=== PATIENT | female | born 1995 | race Two or more races ===

== ENCOUNTER 2020-06-02 17:56 | Emergency (ER) | payer MEDICAID, SELFPAY ==
[2020-06-02 18:05] VITALS: BP 130/73; PULSE 84; RESP 16; TEMP 37; O2SAT 99; BMI 24.1
--- NOTE | 2020-06-02 18:16 | ED.URI ---
HPI - URI/Sore Throat General Chief Complaint: Upper Respiratory Symptoms Stated Complaint: cough Time Seen by Provider: 06/02/20 18:07 Source: patient Mode of arrival: ambulatory History of Present Illness HPI Narrative: 25-year-old female with a past medical history of asthma presenting to ED complaining of mild dry cough and myalgias starting today. Patient reports works at [employer], no known sick contacts or recent travel. Denies fever, chills, CP/SOB, LE edema, history of clots MD elicited complaint: cough Related Data Allergies Allergy/AdvReac Type Severity Reaction Status Date / Time ENVIRONMENTAL Allergy Intermediate RUNNY Uncoded 03/08/20 16:51 NOSE, SNEEZING Review of Systems Review of Systems: Constitutional: No Weight loss, No Fever, No Chills, +fatigue Cardiovascular: No Chest Pain, No SOB Respiratory: + Cough, No Sputum, No Wheezing Gastrointestinal: No Nausea, No Vomiting, No Diarrhea, No Constipation, No Abdominal pain Genitourinary:, No Dysuria, No Urinary Frequency, No Hematuria, No Urinary Incontinence, No Urgency, No Flank Pain Musculoskeletal: No joint pain, + Myalgias, No Joint Swelling Skin: No Skin Lesions, No rash Yes all other systems are reviewed and are negative PMFSH Past Medical History Attestation statement: The following information was validated with the patient. Medical History (Updated 06/02/20 @ 18:17 by ELI Chavez) Asthma Physical Exam Vital Signs: Vital Signs: Last Vital Signs Temp 98.6 F 06/02/20 18:05 Pulse 84 06/02/20 18:05 Resp 16 06/02/20 18:05 BP 130/73 06/02/20 18:05 Pulse Ox 99 06/02/20 18:05 Body Mass Index 24.1 Const: General: cooperative and healthy appearing Orientation/consciousness: patient oriented x3 Limitations: no limitations HENMT: Head: Yes normal to inspection Ears: hearing grossly normal bilaterally General nose exam: Normal external nose present Face and sinus: Yes normal facial exam Eyes: General: appearance normal, both eyes and all related structures EOM: EOMs intact bilaterally Neck: Neck: Yes normal visual inspection and Yes no meningeal signs Resp: Effort & Inspection: normal respiratory effort Auscultation: clear to auscultation bilaterally, no rales, no rhonchi and no wheezes Cardio: Rate: regular rate Heart sounds: S1 normal heart sound present and S2 normal heart sound present GI: Inspection: Yes normal to inspection Skin: Rashes: no rashes Wounds: no wounds Neuro: General: patient oriented x3 and no meningeal signs Gait exam (Neuro): Normal gait present Extrem: General: Yes normal to inspection MDM - URI/Sore Throat MDM Narrative Medical decision making narrative: On exam VSS, NAD/well-appearing, lungs CTA. Nontoxic appearing. Concern for viral syndrome/COVID-19. Low concern for pneumonia Plan: COVID-19, worrisome signs and symptoms and strict return precautions discussed. Discharge Plan Discharge Clinical Impression: Upper respiratory infection Qualifiers: URI type: unspecified URI Qualified Code(s): J06.9 - Acute upper respiratory infection, unspecified Patient Disposition: Home, Self-Care Instructions: Viral Syndrome (ED) Additional Instructions: Based on your symptoms and history we have sent a COVID-19. Although your RESULT IS PENDING at this time. RESULTS should return within 72 hours. At this time you will be contacted with either NEGATIVE OR POSITIVE results. -Please wait until we contact you for your results. At this time you will be okay for discharge. Please plan for self quarantine for up to 14 days. Do not expose yourself to others. You may not go to work. If testing does come back negative you may return to activities as long as you are no longer having any symptoms for at least 3 days. Please continue to follow cold instructions and wash your hands frequently. You may take Tylenol as directed on the bottle for pain or fever. CDC Guidelines for home isolation: - Stay away from others - WEAR A MASK if you are sick AND STAY HOME - Cover your mouth and nose with a tissue when you cough or sneeze. Dispose of tissues in a lined trash can and wash your hands immediately with soap and water for at least 20 seconds. If soap and water are not available, clean hands with alcohol-based hand notch machine operator that contains at least 60% alcohol. - Clean your hands often with soap and water for at least 20 seconds - Avoid touching your eyes, nose and mouth with unwashed hands - Do not share dishes, drinking glasses, cups, eating utensils, towels, or bedding with other people in your home. After using these items, wash them thoroughly with soap and water or put in the fixer boarding room. - Clean high-touch surfaces in your isolation area ( sick room and bathroom) every day; let a caregiver clean and disinfect high-touch surfaces in other areas of the home. Clean the area or item with soap and water or another detergent if it is dirty. Then, use a household disinfectant. - Limit contact with pets and animals: If you must care for a pet, wash your hands before and after interacting with them) Referrals: [facility] [Primary Care Provider] - 2 days Stand Alone Forms: Work/School Release
== END 2020-06-02 19:32 | disposition home or self-care (01) ==
PROVIDERS: Physician Assistant; Emergency Provider Internal Medicine
DX: U07.1 COVID-19 (principal); J06.9 Acute upper respiratory infection, unspecified; J45.909 Unspecified asthma, uncomplicated
CPT/HCPCS: 99283; U0003

== ENCOUNTER 2021-01-18 08:08 | Outpatient (REF) | payer MEDICAID, SELFPAY ==
--- NOTE | ~2021-01-18 | US_ITS ---
EXAMINATION: US DIAGNOSTIC ULTRASOUND BREAST, LEFT CLINICAL INFORMATION: 25-year-old with new palpable mass upper outer left breast noted for one month. COMPARISON: None. TECHNIQUE: Ultrasound left breast is targeted to the area of clinical concern upper outer quadrant. Grayscale imaging and color Doppler are performed without and with harmonics. Patient is able to point to the area of palpable concern at time of imaging. FINDINGS: There is a solid macrolobulated hypoechoic mass 2:00 position 7 cm from nipple corresponding to the palpable concern and measuring 1.7 x 1.1 x 1.6 cm. There is scattered peripheral and internal color flow. There are no other findings in the targeted area. Results are discussed with the patient at time of visit. Patient notes she performs routine breast exam and the finding is new. The ultrasound appearance is suggestive of fibroadenoma. Tissue sampling is recommended for confirmation. US/US breast LT limited IMPRESSION: Solid mass left breast 2:00 position measuring 1.7 cm, likely fibroadenoma. ASSESSMENT: BI-RADS 4: Suspicious (subcategory 4A: Low suspicion for malignancy) RECOMMENDATION: Ultrasound-guided core biopsy left breast mass.
== END 2021-01-18 08:09 | disposition home or self-care (01) ==
LOC: HO.MAMMO 08:08
PROVIDERS: Visit Provider Registered Nurse Community Health
DX: N63.21 Unspecified lump in the left breast, upper outer quadrant (principal)
CPT/HCPCS: 76642

== ENCOUNTER 2021-01-30 09:35 | Outpatient (REF) | payer MEDICAID, SELFPAY ==
--- NOTE | ~2021-01-30 | US_ITS ---
EXAMINATION: ULTRASOUND GUIDED CORE BIOPSY BREAST, LEFT CLINICAL INFORMATION: 25-year-old with new palpable mass upper outer left breast. Ultrasound shows macrolobulated mass 1.7 cm, likely fibroadenoma. COMPARISON: Targeted left breast ultrasound 01/18/2021. FINDINGS: Proper informed consent is obtained from the patient after discussion of the procedure, potential risks and complications, and alternatives. Patient was given an opportunity for questions. The patient appeared to understand. The patient consented to the procedure and signed the consent form. GUIDANCE: Ultrasound-guided; aseptic technique. LESION: Solid mass 2:00 position 7 cm from nipple measuring 1.7 x 1.1 x 1.6 cm, probable fibroadenoma. APPROACH: Oblique caudal cranial. ANESTHESIA: 10 mL 1% lidocaine. DERMATOTOMY: Single skin naren dermatotomy performed. NEEDLE: 14-gauge Achieve core biopsy device with 13.5-gauge co-axial guide needle. CORES: 4. CLIP: HydroMARK; shape: butterfly. The clip deployment is clearly visible during real-time ultrasound. The patient tolerated the procedure well. No immediate complications. Home instructions reviewed with the patient. Final pathology results are pending. US/US breast ndl core biopsy LT IMPRESSION: 1. Status post ultrasound-guided core biopsy left breast. 2. Clip placed: HydroMARK; shape: butterfly. 3. Pathology pending. An addendum report will be issued.
== END 2021-01-30 09:36 | disposition home or self-care (01) ==
LOC: HO.MAMMO 09:35
PROVIDERS: Visit Provider Surgery
DX: N63.21 Unspecified lump in the left breast, upper outer quadrant (principal)
CPT/HCPCS: 19083; 88305; 99202

== ENCOUNTER → 2021-02-04 09:31 | Outpatient (BNVA) | payer MEDICAID, SELFPAY | PROVIDERS: PCP Registered Nurse Community Health; Referring Provider Registered Nurse Community Health; Visit Provider Surgery | DX: N63.21 Unspecified lump in the left breast, upper outer quadrant (principal) | CPT/HCPCS: 99212 ==

== ENCOUNTER 2023-06-11 17:48 | Outpatient (REF) | payer MEDICAID, SELFPAY ==
[2023-06-11 18:38] LABS: Appearance Urine Turbid; Color Urine Yellow; Glucose Urine UA Negative (Negative); Leukocyte Esterase Urine Large (3+) (Negative); Nitrite Urine Negative (Negative); PH 7.5 (5.0-9.0); Specific Gravity - Urine 1.015 (1.005-1.025); UMIC TRIGGER UACC YES; Urine Blood Negative (Negative); Urine Ketones Negative (Negative); Urine Protein Negative (Neg-Trace)
[2023-06-11 20:48] LABS: Bacteria Urine 4+ (None Seen); UACC Culture Trigger YES; WBC Urine >50 /HPF (0-5)
== END 2023-06-11 17:49 | disposition home or self-care (01) ==
LOC: HO.HHCLNP 17:48
PROVIDERS: Visit Provider Student in an Organized Health Care Education/Training Program
DX: R10.9 Unspecified abdominal pain (principal)
CPT/HCPCS: 81001; 87086

== ENCOUNTER 2023-06-12 11:47 | Outpatient (REF) | payer MEDICAID, SELFPAY ==
--- NOTE | ~2023-06-12 | XR_ITS ---
EXAMINATION: XR ABDOMEN COMPLETE CLINICAL INDICATION: Abdominal pain evaluate for calcium/kidney stones COMPARISON: Abdominal ultrasound February 2015 TECHNIQUE: 2 views of the abdomen. FINDINGS: The bowel gas pattern is normal with no evidence of ileus or obstruction. No unusual soft tissue calcifications are noted. There is a mild convex left curvature of the thoracolumbar junction perhaps positional. Radiopaque intrauterine device noted. Bone and soft tissues otherwise unremarkable XR/XR abdomen min 2V IMPRESSION: 1. No acute abnormality. No findings to suggest urinary tract calculi 2. Radiopaque intrauterine device noted.
== END 2023-06-12 11:48 | disposition home or self-care (01) ==
LOC: HO.HHCX 11:47
PROVIDERS: Visit Provider Student in an Organized Health Care Education/Training Program
DX: R10.9 Unspecified abdominal pain (principal); Z97.5 Presence of (intrauterine) contraceptive device
CPT/HCPCS: 74019

== ENCOUNTER 2023-06-16 12:45 | Outpatient (REF) | payer MEDICAID, SELFPAY ==
--- NOTE | ~2023-06-16 | US_ITS ---
EXAMINATION: US ABDOMEN COMPLETE CLINICAL INFORMATION: Abdominal pain. COMPARISON: X-ray abdomen complete 06/12/2023. Ultrasound abdomen complete 03/13/2015. TECHNIQUE: Real-time imaging of the abdominal viscera. Limited visualization due to bowel gas. FINDINGS: PANCREAS: Normal. ABDOMINAL AORTA: The proximal, mid, and distal segments are normal in caliber. INFERIOR VENA CAVA: Visualized portions are normal. LIVER: Increased hepatic parenchymal heterogeneity and echogenicity which could be associated with hepatocellular disease/hepatic steatosis and substantially limits visualization. GALLBLADDER: Multiple gallstones. No gallbladder wall thickening. COMMON BILE DUCT: Normal in caliber measuring 0.2 cm in diameter. RIGHT KIDNEY: Borderline dilated renal calyces. No renal calculi. Limited visualization. The kidney measures 10.8 cm in maximum dimension. LEFT KIDNEY: Echogenic renal pyramids. Borderline dilated renal calyces. No renal calculi. Limited visualization. The kidney measures 10.9 cm in maximum dimension. SPLEEN: Normal. The spleen measures 10.8 cm in maximum dimension. FREE FLUID: None. US/US abdomen complete IMPRESSION: 1. Increased hepatic parenchymal heterogeneity and echogenicity which could be associated with hepatocellular disease/hepatic steatosis and substantially limits visualization. 2. Cholelithiasis. 3. Borderline dilated bilateral renal calyces. Echogenic left renal pyramids. 4. Limited visualization due to bowel gas and body habitus. CT scan could be considered for better visualization.
== END 2023-06-16 12:46 | disposition home or self-care (01) ==
LOC: HO.US 12:45
PROVIDERS: Visit Provider Student in an Organized Health Care Education/Training Program
DX: R10.9 Unspecified abdominal pain (principal)
CPT/HCPCS: 76700

== ENCOUNTER 2023-07-20 12:27 | Outpatient (REF) | payer MEDICAID, SELFPAY ==
[2023-07-20 13:10] LABS: MANUAL DIFF FLAG NO
[2023-07-20 13:18] LABS: Basophils Percent Auto 0.3 % (0-2); Eosinophils Absolute Auto 0.3 X10*3/uL (0.0-0.4); Eosinophils Percent Auto 4.4 % (0-4); Hematocrit 39.6 % (37.0-47.0); Hemoglobin 13.1 g/dl (12.0-16.0); Imm Gran Abs Auto 0.01 X10*3/uL (0.00-0.03); Imm Gran Pct Auto 0.2 % (0.0-0.4); Lymphocytes Absolute Auto 1.7 X10*3/uL (1.2-4.9); Mean Corpuscular HGB Conc 33.1 g/dl (31.0-35.0); Mean Corpuscular Hemoglobin 30.9 pg (27.0-33.0); Mean Corpuscular Volume 93.4 fL (80.0-98.0); Mean Platelet Volume 9.9 fL (9.4-12.3); Monocytes Absolute Auto 0.4 X10*3/uL (0.1-1.2); Monocytes Percent Auto 6.8 % (2-11); Neutrophils Absolute Auto 3.5 x10*3/uL (2.0-8.3); Neutrophils Percent Auto 59.3 % (45-73); Platelet Count 292 X10*3/uL (160-400); Red Blood Count 4.24 X10*6/uL (4.20-5.50); Red Cell Distribution Width 12.6 % (11.0-16.0); White Blood Count 5.9 X10*3/uL (4.8-10.8)
[2023-07-20 13:41] LABS: Estimated Average Glucose 97 mg/dL
[2023-07-20 13:55] LABS: Anion Gap 14 (12-20); Blood Urea Nitrogen 11 mg/dL (9-16); Calcium 9.5 mg/dL (8.4-10.2); Carbon Dioxide 26 mmol/L (22-29); Chloride 105 mmol/L (96-108); Estimated Glomerular Filt Rate > 60; Glucose Random 82 mg/dL (60-115); Sodium 141 mmol/L (135-145)
[2023-07-20 15:02] LABS: CT PCR NOT DETECTED (Not Detect.); NG PCR NOT DETECTED (Not Detect.)
[2023-07-21 05:50] LABS: HIV AB/AG Nonreactive (Nonreactive); HIV Num 1 0.17 S/CO (0.00-0.99); ~HepC Num1 0.09 S/CO (0.00-0.79); ~Hepatitis C Antibody Nonreactive (Nonreactive)
[2023-07-21 11:19] LABS: RPR Rapid Plasma Reagin NON-REACTIVE (NON-REACTIVE)
== END 2023-07-20 12:28 | disposition home or self-care (01) ==
LOC: HO.HHCL 12:27
PROVIDERS: Visit Provider Internal Medicine
DX: Z00.00 Encounter for general adult medical examination without abnormal findings (principal)
CPT/HCPCS: 0353U; 36415; 80048; 83036; 85025; 86592; 86803; 87389

== ENCOUNTER 2023-07-27 10:08 | Outpatient (REF) | payer MEDICAID, SELFPAY ==
--- NOTE | ~2023-07-27 | CT_ITS ---
EXAMINATION: CT ABDOMEN AND PELVIS WITHOUT CONTRAST CLINICAL INFORMATION: Lower abdominal pain; question renal calculi. COMPARISON: Abdominal ultrasound dated 06/16/2023. TECHNIQUE: Multidetector volumetric imaging was performed from the superior aspect of the liver through the pubic symphysis. Sagittal and coronal reformatted images were obtained on the technologist's workstation. This CT examination was performed using dose optimization techniques as appropriate, variously including the following: *Automated exposure control *Adjustment of mA and/or kV according to patient size (this includes techniques or standardized protocols for targeted exams where dose is matched to indication/reason for exam; i.e. extremities or head) *Use of iterative reconstruction technique DLP: 442 mGy-cm FINDINGS: LUNG BASES: The visualized lung bases are unremarkable. LIVER, GALLBLADDER, AND BILIARY TREE: The liver is normal in size, shape, and attenuation. No focal hepatic lesion or biliary ductal dilatation is present. There are multiple gallstones, without gallbladder wall thickening or obvious pericholecystic inflammatory changes. PANCREAS: Unremarkable. SPLEEN: Unremarkable. ADRENAL GLANDS: Unremarkable. KIDNEYS AND URETERS: The kidneys are normal in size, shape, and attenuation. At the lower pole of the left kidney (4:289 and 301), there are 4 mm and 1 mm nonobstructing calculi. No perinephric stranding. BLADDER: Unremarkable. GASTROINTESTINAL TRACT: There is a curvilinear radiolucency noted towards the lesser curvature of the stomach, which is likely artifactual and related to a gas and motion artifact. The small and large bowel are unremarkable. No obstruction, free intraperitoneal air or abscess is seen. There is no focal bowel wall thickening. No significant diverticulosis or diverticulitis is seen. The vermiform appendix is unremarkable. ABDOMINAL WALL: There is a tiny fat-containing umbilical hernia. LYMPH NODES: Normal. VASCULAR: Unremarkable. PELVIC VISCERA: The uterus and adnexa are unremarkable. An intrauterine device is noted. OSSEOUS STRUCTURES: There is mild lower thoracic spondylosis. No acute or aggressive osseous finding is seen. CT/CT abdomen pelvis wo IV con IMPRESSION: 1. There are 4 mm and 1 mm nonobstructing left renal lower pole calculi. No further urinary calculus is seen, and there is no bilateral obstructive uropathy. 2. There is cholelithiasis. 3. There is no bowel obstruction, free intraperitoneal air or abscess. No appendicitis or diverticulitis is seen. 4. There is no abdominopelvic mass, free fluid or lymphadenopathy. 5. There is mild lower thoracic spondylosis. No acute or aggressive osseous finding is noted. Fleischner guidelines were followed.
== END 2023-07-27 10:09 | disposition home or self-care (01) ==
LOC: HO.CT 10:08
PROVIDERS: PCP Registered Nurse Community Health; Visit Provider Student in an Organized Health Care Education/Training Program
DX: R10.9 Unspecified abdominal pain (principal)
CPT/HCPCS: 74176

== ENCOUNTER 2023-08-17 11:46 | Outpatient (AMB) | payer MEDICAID, SELFPAY ==
--- NOTE | 2023-08-17 11:49 | A.OFFVIS_ITS ---
Intake Intake Visit Reasons: gallstones Intake Note: This patient presents for an assessment for gallstones. Patient c/o; reports lower back pain, reports no nausea or vomiting, reports no problems with bowel movements. Clinical Research Management Associate Required: No Accompanied by: Self / Same As Patient Allergies ENVIRONMENTAL Allergy (Intermediate, Uncoded 08/17/23 11:50) RUNNY NOSE, SNEEZING Medication List - Last Reconciled 08/17/23 by Tim Medeiros MD No Known Home Meds HPI gallstones HPI Details [age] year old female referred for gallstones. She actually complaints of chronic pelvic pain/lower abdominal pain. She says that she has had this for several months. She also says that she has similar pain whenever she has her periods . She had undergone an ultrasound last May [address] scan 3 weeks ago showing gallstones without cholecystitis. She was therefore referred to me. She denies any pain or tenderness on the right upper quadrant. She has good oral intake. She says she has an IUD which she has had for over 4 years now. She says that she has not been seen by her branch store manager several years for this. [facility] Medical History (Updated 08/17/23 @ 11:57 by Tim Medeiros MD) Gallstones Left breast mass Asthma Surgical History History of ankle surgery Family History Paternal Uncle Cancer of unknown origin Female Reproductive History Menstrual Age of Menarche: 13 Review of Systems Const Denies chills and Denies fever(s) Card Denies chest pain, Denies dyspnea and Denies dyspnea on exertion Resp Denies cough, Denies dyspnea and Denies dyspnea on exertion GI Denies hematochezia and Denies change in bowel habits Denies hematuria Musc Denies back pain and Denies limited range of motion Neuro Denies focal weakness and Denies convulsions Psych Denies depression and Denies mood swings Physical Exam Const General: comfortable and no acute distress Orientation/consciousness: patient oriented x3 Neck Neck: Yes no lymphadenopathy Resp Auscultation: clear to auscultation bilaterally Cardio Rhythm: regular rhythm GI Palpation (GI): Soft to palpation, nontender and no guarding Neuro General: patient oriented x3 Assessment & Plan Assessment & Plan (1) Gallstones: Code(s): K80.20 - Calculus of gallbladder without cholecystitis without obstruction Plan: She has had chronic lower abdominal pain/pelvic pain. She had an undergone ultrasound and CAT scan showing gallstones. However her pain does not appear to be secondary to the gallbladder. She denies any pain on the right upper quadrant. She denies any GI complaints. She does state that her pain seems to be worse with her periods I therefore told her that it may be best to see her branch store manager with regards to her IUD and her lower abdominal pain. I did explain to her that if her gallstones become symptomatic, she should come back to the office to be re- evaluated for possible cystectomy She understands the plan and is comfortable with this. Coding Level of Care Code New Pt Level 3 (05827) Diagnoses Gallstones K80.20
== END 2023-08-17 12:19 | disposition home or self-care (01) ==
PROVIDERS: PCP Student in an Organized Health Care Education/Training Program; Visit Provider Surgery
DX: K80.20 Calculus of gallbladder without cholecystitis without obstruction (principal)
CPT/HCPCS: 99213

== ENCOUNTER → 2023-08-17 11:46 | Outpatient (BNVA) | payer MEDICAID, SELFPAY | PROVIDERS: PCP Student in an Organized Health Care Education/Training Program; Visit Provider Surgery | DX: K80.20 Calculus of gallbladder without cholecystitis without obstruction (principal) | CPT/HCPCS: 99212 ==

== ENCOUNTER 2023-09-25 16:35 | Outpatient (REF) | payer MEDICAID, SELFPAY ==
[2023-09-30 22:33] LABS: C. trachomatis RNA TMA NOT DETECTED (NOT DETECTED); N. gonorrhoeae RNA TMA NOT DETECTED (NOT DETECTED)
[2023-10-01 00:04] LABS: Trichomonas (NAAT) NOT DETECTED (NOT DETECTED)
== END 2023-09-25 16:36 | disposition home or self-care (01) ==
LOC: HO.HHCLNP 16:35
PROVIDERS: Visit Provider Internal Medicine
DX: Z12.4 Encounter for screening for malignant neoplasm of cervix (principal); Z11.3 Encounter for screening for infections with a predominantly sexual mode of transmission
CPT/HCPCS: 36415; 87491; 87591; 87661; 88142

== ENCOUNTER 2023-11-19 09:18 | Outpatient (AMB) | payer MEDICAID, SELFPAY ==
--- NOTE | 2023-11-19 09:23 | MHC.OFFVIS ---
Vital Signs 11/19/23 09:29 Height 5 ft 5 in Weight 151 lb BMI 25.1 BP 110/66 Intake Visit Reasons: New patient IUD check up Enamel Burner Required: No Information Interpreted: non-clinical & clinical Security Sales Manager: Security Sales Manager Present (Sandi PURCELL) Accompanied by: Self / Same As Patient Allergies ENVIRONMENTAL Allergy (Intermediate, Uncoded 11/19/23 09:30) RUNNY NOSE, SNEEZING Is last menstrual period known: No (mirena) HPI Comments Details: The patient is presenting with bilateral lower pelvic pain started a months ago. It's intermittent in nature lasting few seconds and occurs 3x/day. it is associated with heavy irregular menstrual cycles associated with passage of blood clots and pelvic cramping, no urinary or GI symptoms, no vaginal discharge, no fever or chills. The patient has Mirena IUD inserted since December of 2018 [facility] Medical History Gallstones Left breast mass Asthma Surgical History History of ankle surgery Family History Paternal Uncle Cancer of unknown origin Father Diabetes Mother Heart disease Social History Household Members: Children Housing: Apartment Alcohol intake: never Patient Tobacco Use Status: Never used Tobacco Current occupational status: unemployed Sexually active: Yes Sexual orientation: Straight/Heterosexual Gender identity: Female Female Reproductive History Menstrual Age of Menarche: 13 Total pregnancies: 2 Full term: 2 Number of Living Children: 2 Review of Systems Const All systems reviewed & are unremarkable except as noted in HPI and below Physical Exam Vital Signs: Last Vital Signs BP 110/66 11/19/23 09:29 BMI result Body Mass Index 25.1 General: Yes no CVA tenderness External Female Exam: normal external appearance and normal appearance of the urethra Speculum Exam - Vagina: normal appearance of the vagina, normal palpation, no lesions and no masses Speculum Exam - Cervix: normal appearance of the cervix, normal palpation, no lesions, no masses, nontender and Other cervical findings present (IUD string in place) Bimanual exam- vagina & uterus: normal bimanual exam, normal palpation, uterine size normal, normal palpation, uterine shape normal, No Cervical tenderness present and non-tender Bimanual Exam- Adnexa, other: normal adnexae Back/Spine/Pelvis Back: no CVA tenderness Results AMB Test Urine AMB Test Urine Negative Last Edit by Sandi Pan CMA on 11/19/23 09:37 Assessment & Plan Assessment & Plan (1) Abnormal uterine bleeding (AUB): Comment: On Mirena IUD Code(s): N93.9 - Abnormal uterine and vaginal bleeding, unspecified Category: Medical Plan: Urine test done in the office was negative. Pap smear done, GC and chlamydia taken CBC, TSH, prolactin, HCG, and pelvic ultrasound ordered. Discussed with the patient the different causes of abnormal bleeding including thyroid disorders, uterine and ovarian pathology and other potential causes. Discussed with the patient the work up including CBC (to r/o anemia), TSH, prolactin, pelvic Ultrasound. All questions answered and the patient verbalized understanding. Instructed the patient to schedule a follow-up appointment in 2 weeks. (2) Pelvic pain: Code(s): R10.2 - Pelvic and perineal pain Category: Medical Plan: Urine test done in the office while negative. GC and chlamydia taken and pelvic ultrasound ordered. Discussed with the patient the differential diagnosis of pelvic pain including but not limited to adnexal, uterine masses, pelvic infections (PID), GI the (Irritable bowel syndrome, diverticulitis, others), musculoskeletal, myofascial pain abdominal wall , adhesions, endometriosis, psychological and others causes. Will check results and treat accordingly. All questions answered, the patient verbalized understanding. Instructed the patient to schedule follow-up appointment in 2 weeks (3) Microscopic hematuria: Code(s): R31.29 - Other microscopic hematuria Category: Medical Plan: Urine dip showed microscopic hematuria, urine culture sent. Will repeat urine dip in 2 weeks. Discussed with the patient the possible causes of microscopic hematuria including but not limited to: interstitial cystitis, polyps, stones, masses, urethral inflammatory processes and others. If Urine Culture is negative and repeat urine dip in 2 weeks shows persistent microscopic hematuria, will proceed with CT abdomen/pelvis and urology referral. Instructions given the patient to schedule a 2 week urine dip follow-up appointment. All questions answered and the patient verbalized understanding. Orders: Orders Complete Blood Count no Diff Today N93.9 - Abnormal uterine and vaginal bleeding, unspecified TSH reflex Free T4 Today N93.9 - Abnormal uterine and vaginal bleeding, unspecified Prolactin Today N93.9 - Abnormal uterine and vaginal bleeding, unspecified HCG Quantitative Today N93.9 - Abnormal uterine and vaginal bleeding, unspecified US pelvic and transvaginal Today N93.9 - Abnormal uterine and vaginal bleeding, unspecified AMB HCG Urine Test Today Z32.02 - Encounter for test, result negative Urine Culture Today R10.2 - Pelvic and perineal pain Coding Level of Care Code New Pt Level 3 (74405) Diagnoses Abnormal uterine bleeding (AUB) N93.9 Pelvic pain R10.2 Microscopic hematuria R31.29
[2023-11-19 09:29] VITALS: BP 110/66; BMI 25.1
== END 2023-11-19 09:58 | disposition home or self-care (01) ==
PROVIDERS: PCP Student in an Organized Health Care Education/Training Program; Referring Provider Student in an Organized Health Care Education/Training Program; Visit Provider Obstetrics & Gynecology
DX: N93.9 Abnormal uterine and vaginal bleeding, unspecified (principal); R10.2 Pelvic and perineal pain; R31.29 Other microscopic hematuria; Z32.02 Encounter for pregnancy test, result negative
CPT/HCPCS: 99203

== ENCOUNTER 2023-11-19 09:18 | Outpatient (REF) | payer MEDICAID, SELFPAY ==
[2023-11-19 15:59] LABS: CT PCR NOT DETECTED (Not Detect.); NG PCR NOT DETECTED (Not Detect.)
== END 2023-11-19 09:19 | disposition home or self-care (01) ==
LOC: HO.LNP 09:18
PROVIDERS: PCP Student in an Organized Health Care Education/Training Program; Visit Provider Obstetrics & Gynecology
DX: R10.2 Pelvic and perineal pain (principal); N93.9 Abnormal uterine and vaginal bleeding, unspecified; R31.29 Other microscopic hematuria
CPT/HCPCS: 0353U; 81025; 87086; 99202

== ENCOUNTER 2023-11-26 10:58 | Outpatient (REF) | payer MEDICAID, SELFPAY ==
--- NOTE | ~2023-11-26 | US_ITS ---
EXAMINATION: US PELVIS CLINICAL INFORMATION: Abnormal uterine and vaginal bleeding. COMPARISON: CT abdomen and pelvis 07/27/2023. TECHNIQUE: Ultrasound of the pelvis is performed using both transabdominal and transvaginal transducers along with Doppler. Transvaginal imaging is performed due to inadequate visualization transabdominally. FINDINGS: Uterus: The uterus is anteverted and anteflexed measuring 7.6 x 3.5 x 4.8 cm. The double wall endometrial thickness is 2 mm. An IUD is present in the endometrial canal which appears malrotated and positioned low in the endometrial canal, similar to appearances on the CT from 07/27/2023. The uterus is smooth in contour and has normal myometrial echogenicity. No visible fibroid. Adnexa: Both ovaries are visualized. There is normal color flow to the adnexa. There is no ovarian torsion. There is no pelvic ascites or fluid collection. Right ovary measures 2.9 x 2.5 x 2.1 cm for a volume of 8.0 mL. Left ovary measures 2.7 x 2.1 x 1.4 cm for a volume of 4.2 mL. US/US pelvic and transvaginal IMPRESSION: Malpositioned IUD.
== END 2023-11-26 10:59 | disposition home or self-care (01) ==
LOC: HO.US 10:58
PROVIDERS: PCP Student in an Organized Health Care Education/Training Program; Visit Provider Obstetrics & Gynecology
DX: N93.9 Abnormal uterine and vaginal bleeding, unspecified (principal)
CPT/HCPCS: 76830; 76856

== ENCOUNTER 2023-12-23 12:35 | Outpatient (AMB) | payer MEDICAID, SELFPAY ==
[2023-12-23 12:42] VITALS: BP 92/60; BMI 25.1
--- NOTE | 2023-12-23 12:42 | MHC.OFFVIS ---
Vital Signs 12/23/23 12:42 Height 5 ft 5 in Weight 151 lb BMI 25.1 BP 92/60 Intake Visit Reasons: US follow up/urine dip Allergies ENVIRONMENTAL Allergy (Intermediate, Uncoded 11/19/23 09:30) RUNNY NOSE, SNEEZING HPI Comments Details: Presenting for follow-up regarding AUB, pelvic pain and microscopic hematuria. 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 The following workup was done H&H 13.1/39.6 GC/CT negative Pap smear negative TSH, prolactin, hCG not done yet Pelvic ultrasound showed the following: Uterus: The uterus is anteverted and anteflexed measuring 7.6 x 3.5 x 4.8 cm. The double wall endometrial thickness is 2 mm. An IUD is present in the endometrial canal which appears malrotated and positioned low in the endometrial canal, similar to appearances on the CT from 07/27/2023. The uterus is smooth in contour and has normal myometrial echogenicity. No visible fibroid. Adnexa: Both ovaries are visualized. There is normal color flow to the adnexa. There is no ovarian torsion. There is no pelvic ascites or fluid collection. Right ovary measures 2.9 x 2.5 x 2.1 cm for a volume of 8.0 mL. Left ovary measures 2.7 x 2.1 x 1.4 cm for a volume of 4.2 mL. COUNTS INCLUDE 234 BEDS AT THE [facility] Medical History Gallstones Left breast mass Asthma Surgical History History of ankle surgery Family History Paternal Uncle Cancer of unknown origin Father Diabetes Mother Heart disease Social History Household Members: Children Housing: Apartment Alcohol intake: never Patient Tobacco Use Status: Never used Tobacco Current occupational status: unemployed Sexual orientation: Straight/Heterosexual Gender identity: Female Female Reproductive History Menstrual Age of Menarche: 13 Review of Systems Const All systems reviewed & are unremarkable except as noted in HPI and below Physical Exam Vital Signs: Last Vital Signs BP 92/60 07/03/24 12:42 BMI result Body Mass Index 25.1 Chest Breast/axilla inspection: inspection of breasts abnormal (Right breast wnl, left breast 2 cm lump 6 cm from the nipple @ 2 o'clock ) General: Yes no CVA tenderness External Female Exam: normal external appearance and normal appearance of the urethra Speculum Exam - Vagina: normal appearance of the vagina, normal palpation, no lesions and no masses Speculum Exam - Cervix: normal appearance of the cervix, normal palpation, no lesions, no masses, nontender and Other cervical findings present (IUD string in place, IUD taken out, see procedure note) Bimanual exam- vagina & uterus: normal bimanual exam, normal palpation, uterine size normal, normal palpation, uterine shape normal, No Cervical tenderness present and non-tender Bimanual Exam- Adnexa, other: normal adnexae Back/Spine/Pelvis Back: no CVA tenderness Office Procedures IUD Insert/Removal Details Details: Counseling/Consent: After discussing with the patient the risks of the procedure including bleeding, infection, scar tissue formation, , possible injury to blood vessels or nerves, chronic arm pain, blood transfusion, and irregular unpredictable bleeding Alternative options were discussed with the patient including but not limited: Do nothing. The patient signed the consent and agreed with the plan; all questions answered. Urine test was done in the office and was negative Preop dx: Requesting IUD removal Op: IUD removal Post op dx: same EBL= 10 cc Procedure: The patient was put in the dorsal lithotomy position a speculum was inserted in the vagina the IUD thread identified. Using a Blaire clamp the thread was grasped and the IUD pulled out with no complications. The patient tolerated the procedure well and was advised to use a different method for contraception. Discharge instructions: Instructions were given to the pt to use a different method of control, to call if temp>100.4, abdominal pain heavy vaginal bleeding, n/v occur. The patient verbalized understanding and all questions answered. This note was generated with a voice recognition program. Some errors may have been overlooked during the review of this note. Sometimes these errors may affect the content or meaning of a given sentence. [id number] Removal Procedure code (CPT) selection complete Results AMB Urinalysis, Automated UA Leukoctes 0.5 Akash/uL Last Edit by Dalia Rebolledo [facility] on 12/23/23 12:47 UA Nitrite Negative Last Edit by Dalia Rebolledo [facility] on 12/23/23 12:47 UA Urobilinogen 0 mg/dL Last Edit by Dalia Rebolledo [facility] on 12/23/23 12:47 UA Protein 0 mg/dL Last Edit by Dalia Rebolledo [facility] on 12/23/23 12:47 UA pH 6.0 Last Edit by Dalia Rebolledo [facility] on 12/23/23 12:47 UA Blood 3 Ihsan/uL Last Edit by Dalia Rebolledo [facility] on 12/23/23 12:47 UA Specific Rittman 1.015 Last Edit by Dalia Rebolledo [facility] on 12/23/23 12:47 UA Ketone Negative Last Edit by Dalia Rebolledo [facility] on 12/23/23 12:47 UA Bilirubin 0 mg/dL Last Edit by Dalia Rebolledo [facility] on 12/23/23 12:47 UA Glucose 0 mg/dL Last Edit by Dalia Rebolledo [facility] on 12/23/23 12:47 AMB Test Urine AMB Test Urine Negative Last Edit by Dalia Rebolledo [facility] on 12/23/23 13:11 Results Reviewed Results Reviewed: Laboratory Last Values Urine pH (Auto) 6.0 12/23/23 12:46 Specific Rittman (Auto) 1.015 12/23/23 12:46 Urine Protein (Auto) 0 mg/dL 12/23/23 12:46 Glucose (UA)(Auto) 0 mg/dL 12/23/23 12:46 Urine Ketones (Auto) Negative 12/23/23 12:46 Urine Blood (Auto) 3 Ihsan/uL 12/23/23 12:46 Urine Nitrite (Auto) Negative 12/23/23 12:46 Urine Bilirubin (Auto) 0 mg/dL 12/23/23 12:46 Urine Urobilinogen (Auto) 0 mg/dL 12/23/23 12:46 Leukocyte Esterase (Auto) 0.5 Akash/uL 12/23/23 12:46 Assessment & Plan Assessment & Plan (1) Malpositioned IUD: Code(s): T83.32XA - Displacement of intrauterine contraceptive device, initial encounter Category: Medical Plan: Discussed with the patient the finding on ultrasound, malpositioned IUD, recommended IUD removal. IUD removed, see procedure note (2) Microscopic hematuria: Code(s): R31.29 - Other microscopic hematuria Category: Medical Plan: Discussed with the patient the possible causes of microscopic hematuria including but not limited to: interstitial cystitis, polyps, stones, masses, urethral inflammatory processes and others. Urine dip repeated showed 3+ blood, since urine culture was negative will proceed with CT scan of abdomen and pelvis and urology referral All questions answered and the patient verbalized understanding. (3) Abnormal uterine bleeding (AUB): Code(s): N93.9 - Abnormal uterine and vaginal bleeding, unspecified Category: Medical Plan: Mirena IUD removed. Instructions given the patient to have her blood work done and schedule a 2 week follow-up appointment, once breast tenderness /lump is cleared by general surgeon and breast ultrasound, and malignancy has been ruled out will discuss different options of treatment (4) Left breast mass: Comment: 2 cm Left breast lump 2 o'clock 6 cm from the nipple Code(s): N63.20 - Unspecified lump in the left breast, unspecified quadrant Category: Medical Plan: Discussed with the patient the finding on Breast exam (breast lump) .The differential diagnosis includes but not limited to lump/cyst/pre cancer/cancer or dense breast tissue. The work up includes breast US and referred the patient for surgical breast consult. (5) Family planning: Code(s): Z30.09 - Encounter for other general counseling and advice on contraception Category: Social Hx Plan: Discussed with the patient the different options of control including control pills/Nuvaring, Depo Medroxy Progesterone Acetate, IUD ( levonorgestrel, Copper), sterilization. All the pros, cons, risks and benefits of each were discussed with the patient. The patient decided to go ahead with [facility] so a more detailed discussion re: control pills including mechanism of action, benefits (regular menses, less dysmenorrhea, less risk of ovarian cancer, ...), risks ( DVT, PE, Strokes, CA, increased breast ca, others). Instructions were given to use a back- up method for contraception till breast lump workup is cleared and malignancy has been ruled out then will prescribe control pills. Instructions given the patient to schedule a 2 week follow-up appointment, meanwhile use a backup method for control in order to prevent . Orders: Orders AMB Urinalysis Automated Today R31.29 - Other microscopic hematuria CT abdomen pelvis wo/w IV con Today R31.29 - Other microscopic hematuria AMB HCG Urine Test Today Z32.02 - Encounter for test, result negative Referrals Urology Referral R31.29 - Other microscopic hematuria Coding Level of Care Code Est Pt Level 3 (73869) Diagnoses Malpositioned IUD T83.32XA Microscopic hematuria R31.29 Abnormal uterine bleeding (AUB) N93.9 Left breast mass N63.20 Family planning Z30.09 CPT Codes Details - CPT: 62063-OJF Removal ([id number])
== END 2023-12-23 13:42 | disposition home or self-care (01) ==
PROVIDERS: PCP Student in an Organized Health Care Education/Training Program; Visit Provider Obstetrics & Gynecology
DX: Z30.09 Encounter for other general counseling and advice on contraception (principal); R31.29 Other microscopic hematuria; N93.9 Abnormal uterine and vaginal bleeding, unspecified; T83.32XA Displacement of intrauterine contraceptive device, initial encounter; Z30.432 Encounter for removal of intrauterine contraceptive device; N63.20 Unspecified lump in the left breast, unspecified quadrant; Z32.02 Encounter for pregnancy test, result negative
CPT/HCPCS: 58301; 99213

== ENCOUNTER 2023-12-23 12:35 | Outpatient (REF) | payer MEDICAID, SELFPAY ==
[2023-12-23 14:44] LABS: Hemoglobin 13.1 g/dl (12.0-16.0); Mean Corpuscular HGB Conc 33.6 g/dl (31.0-35.0); Mean Corpuscular Volume 92.4 fL (80.0-98.0); Mean Platelet Volume 9.5 fL (9.4-12.3); Platelet Count 279 X10*3/uL (160-400); Red Blood Count 4.22 X10*6/uL (4.20-5.50); Red Cell Distribution Width 12.6 % (11.0-16.0); White Blood Count 4.8 X10*3/uL (4.8-10.8)
[2023-12-23 15:25] LABS: HCG Quantitative < 2 mIU/mL
[2023-12-23 15:59] LABS: TSH reflex Free T4 0.68 uIU/mL (0.32-4.0)
[2023-12-24 08:24] LABS: Prolactin 4.2 ng/mL
== END 2023-12-23 12:36 | disposition home or self-care (01) ==
LOC: HO.LAB 12:35
PROVIDERS: PCP Internal Medicine; Visit Provider Obstetrics & Gynecology
DX: Z30.432 Encounter for removal of intrauterine contraceptive device (principal); T83.32XA Displacement of intrauterine contraceptive device, initial encounter; N93.9 Abnormal uterine and vaginal bleeding, unspecified; R31.29 Other microscopic hematuria
CPT/HCPCS: 36415; 58301; 81003; 81025; 84146; 84443; 84702; 85027; 99212

== ENCOUNTER 2023-12-30 12:54 | Outpatient (AMB) | payer MEDICAID, SELFPAY ==
--- NOTE | 2023-12-30 13:02 | A.OFFVIS_ITS ---
Vital Signs 12/30/23 13:08 Height 5 ft 5 in Weight 149 lb 14.629 oz BMI 24.9 BP 112/66 Intake Visit Reasons: recheck breast Head Stock Transfer Clerk Required: Yes Head Stock Transfer Clerk Language: Star Route Mail Driver Services: Head Stock Transfer Clerk Present (in person) Head Stock Transfer Clerk Name: Sandi PURCELL Information Interpreted: non-clinical & clinical Flow Worker: Flow Worker Present (Sandi PURCELL) Accompanied by: Self / Same As Patient Allergies ENVIRONMENTAL Allergy (Intermediate, Uncoded 12/30/23 13:09) RUNNY NOSE, SNEEZING Is last menstrual period known: No (mirena) HPI Comments Details: Presenting for re-examination of left breast for left breast lump [facility] Medical History Gallstones Left breast mass Asthma Surgical History History of ankle surgery Family History Paternal Uncle Cancer of unknown origin Father Diabetes Mother Heart disease Social History Household Members: Children Housing: Apartment Alcohol intake: never Patient Tobacco Use Status: Never used Tobacco Current occupational status: unemployed Sexual orientation: Straight/Heterosexual Gender identity: Female Female Reproductive History Menstrual Age of Menarche: 13 Physical Exam Vital Signs: Last Vital Signs BP 112/66 12/30/23 13:08 BMI result Body Mass Index 24.9 Chest Breast/axilla inspection: normal inspection of the breasts Breast/axilla palpation: palpation of the breasts abnormal (Right breast wnl, left breast 6 cm from the nipple at 2 o'clock 2 cm lump) Assessment & Plan Assessment & Plan (1) Left breast mass: Comment: 2 cm Left breast lump 2 o'clock 6 cm from the nipple Code(s): N63.20 - Unspecified lump in the left breast, unspecified quadrant Category: Medical Plan: Discussed with the patient the finding on Breast exam (breast lump) .The differential diagnosis includes but not limited to lump/cyst/pre cancer/cancer or dense breast tissue. The work up includes left breast US (order placed) and the patient has been referred for surgical breast consult. Orders: Orders US breast LT complete Today N63.20 - Unspecified lump in the left breast, unspecified quadrant Coding Level of Care Code Est Pt Level 3 (10945) Diagnoses Left breast mass N63.20
[2023-12-30 13:08] VITALS: BP 112/66; BMI 24.9
== END 2023-12-30 13:34 | disposition home or self-care (01) ==
LOC: HO.HWS 12:54
PROVIDERS: PCP Internal Medicine; Visit Provider Obstetrics & Gynecology
DX: N63.20 Unspecified lump in the left breast, unspecified quadrant (principal)
CPT/HCPCS: 99213

== ENCOUNTER → 2023-12-30 12:54 | Outpatient (BNVA) | payer MEDICAID, SELFPAY | PROVIDERS: PCP Internal Medicine; Visit Provider Obstetrics & Gynecology | DX: N63.21 Unspecified lump in the left breast, upper outer quadrant (principal) | CPT/HCPCS: 99212 ==

== ENCOUNTER 2024-01-11 14:10 | Outpatient (AMB) | payer MEDICAID, SELFPAY ==
--- NOTE | 2024-01-11 14:14 | MHC.OFFVIS ---
Intake Visit Reasons: Lump~ Rt br Intake Note: This patient presents for a lump on the right breast. Patient c/o; reports right breast lump. Airport Shuttle Driver Required: No Accompanied by: Children Allergies ENVIRONMENTAL Allergy (Intermediate, Uncoded 01/11/24 14:19) RUNNY NOSE, SNEEZING Medication List - Last Reconciled 01/11/24 by Tim Medeiros MD levonorgestrel (Mirena) intrauterine HPI HPI Lump~ Rt br: Details: [age] year old female referred for a left breast mass. She states that she has had this since about 3 years ago. She feels that this has increased in size. She describes pain and tenderness. She was seen by the gun sealing machine operator and was ordered for an ultrasound for this. This has not been done yet. Her menarche was at age of 14. Her 1st was the age of 23. She has had 2 pregnancies. She denies any family history of breast cancer. [facility] Medical History Gallstones Left breast mass Asthma Surgical History History of ankle surgery Family History Paternal Uncle Cancer of unknown origin Father Diabetes Mother Heart disease Social History Household Members: Children Housing: Apartment Alcohol intake: never Patient Tobacco Use Status: Never used Tobacco Current occupational status: unemployed Sexual orientation: Straight/Heterosexual Gender identity: Female Female Reproductive History Menstrual Age of Menarche: 13 Review of Systems Const Denies chills and Denies fever(s) Card Denies chest pain, Denies dyspnea and Denies dyspnea on exertion Resp Denies cough, Denies dyspnea and Denies dyspnea on exertion GI Denies hematochezia and Denies change in bowel habits Denies hematuria Musc Denies back pain and Denies limited range of motion Neuro Denies focal weakness and Denies convulsions Psych Denies depression and Denies mood swings Physical Exam Const General: comfortable and no acute distress Orientation/consciousness: patient oriented x3 Neck Neck: Yes no lymphadenopathy Chest Other: Palpable mass on the left breast in the upper outer quadrant, mobile, about 1 cm No axillary lymphadenopathy, no nipple or skin changes Resp Auscultation: clear to auscultation bilaterally Cardio Rhythm: regular rhythm GI Palpation (GI): Soft to palpation, nontender and no guarding Neuro General: patient oriented x3 Assessment & Plan Assessment & Plan (1) Left breast mass: Comment: 2 cm Left breast lump 2 o'clock 6 cm from the nipple Code(s): N63.20 - Unspecified lump in the left breast, unspecified quadrant Category: Medical Plan: She has this palpable mass as described above. This feels like a fibroadenoma. I am going to await for the ultrasound. I will see her in the office thereafter. I will discuss with her the plan of care after her ultrasound. She is comfortable with the plan above and she says she understands this. Coding Level of Care Code New Pt Level 3 (99985) Diagnoses Left breast mass N63.20
== END 2024-01-11 14:39 | disposition home or self-care (01) ==
PROVIDERS: PCP Internal Medicine; Referring Provider Obstetrics & Gynecology; Visit Provider Surgery
DX: N63.20 Unspecified lump in the left breast, unspecified quadrant (principal)
CPT/HCPCS: 99213

== ENCOUNTER → 2024-01-11 14:10 | Outpatient (BNVA) | payer MEDICAID, SELFPAY | PROVIDERS: PCP Internal Medicine; Referring Provider Obstetrics & Gynecology; Visit Provider Surgery | DX: N63.21 Unspecified lump in the left breast, upper outer quadrant (principal) | CPT/HCPCS: 99212 ==

== ENCOUNTER 2024-01-18 09:57 | Outpatient (REF) | payer MEDICAID, SELFPAY ==
--- NOTE | ~2024-01-18 | US_ITS ---
EXAMINATION: US DIAGNOSTIC ULTRASOUND BREAST, LEFT CLINICAL INFORMATION: Tender lump in the 2:00 region of the left breast. COMPARISON: Study is this study is compared to prior breast ultrasound exam from January 2021. TECHNIQUE: Ultrasound of the breast is performed with real-time collier scale imaging and color Doppler. FINDINGS: There is no focal suspicious finding. There is a previously biopsied 14 mm x 12 mm lobulated mass in the 7:00 region of the left breast. There were shown to represent a fibroadenoma. It is not changed in size. This occurs in location of patient's palpable concern. In the longitudinal view of the left breast, the 2:00 location 7 cm from the nipple, there is an area of heterogeneous breast tissue. This lacks posterior acoustic shadowing and occurs approximately 5 mm superior to the biopsied fibroadenoma. This is probably benign and short interval three-month follow-up sonography is advised to evaluate the areas seen in the longitudinal plane. Patient should read bilateral mammogram when she returns in 3 months for follow-up ultrasound. Results are discussed with the patient at time of visit. US/US breast LT limited mamm only IMPRESSION: Palpable area of concern by the patient is in the 2:00 region of the left breast 7 cm from the nipple. Benign previously biopsied unchanged fibroadenoma in this location. Short interval three-month follow-up advised for evaluation of an area of heterogeneous breast tissue seen in one plane only, also occurring the 2:00 region 7 cm from the nipple. The patient returns in 3 months from the follow-up study, it should have a bilateral diagnostic mammogram as well. Clinical follow-up of any palpable masses is also advised. ASSESSMENT: BI-RADS 3 - Probably benign finding(s) - 6 month follow-up suggested Please note that due to a software issue, it is not possible to register a BI-RADS 3 probably benign for three-month follow-up although a 3 month follow-up ultrasound and bilateral diagnostic mammogram are advised. RECOMMENDATION: 1-3 Months F/U This patient's information was entered into a reminder system with a target due date for their next mammogram.
== END 2024-01-18 09:58 | disposition home or self-care (01) ==
LOC: HO.MAMMO 09:57
PROVIDERS: PCP Student in an Organized Health Care Education/Training Program; Visit Provider Obstetrics & Gynecology
DX: N63.21 Unspecified lump in the left breast, upper outer quadrant (principal)
CPT/HCPCS: 76642

== ENCOUNTER → 2024-01-18 10:00 | Outpatient (BNV) | payer MEDICAID, SELFPAY | PROVIDERS: PCP Student in an Organized Health Care Education/Training Program; Visit Provider Radiology Diagnostic Radiology | DX: N63.21 Unspecified lump in the left breast, upper outer quadrant (principal) | CPT/HCPCS: 76642 ==

== ENCOUNTER 2024-01-27 13:46 | Outpatient (AMB) | payer MEDICAID, SELFPAY ==
--- NOTE | 2024-01-27 13:47 | MHC.OFFVIS ---
Vital Signs 01/27/24 13:51 Height 5 ft 5 in Weight 149 lb 14.629 oz BMI 24.9 Intake Visit Reasons: US/mammo breast results Intake Note: This patient presents for US/mammo breast results. Patient c/o; reports no complaints. Dental Hygiene Instructor Required: No Accompanied by: Children Allergies ENVIRONMENTAL Allergy (Intermediate, Uncoded 01/27/24 13:52) RUNNY NOSE, SNEEZING Medication List - Last Reconciled 01/27/24 by Tim Medeiros MD levonorgestrel (Mirena) intrauterine HPI HPI US/mammo breast results: Details: She is here for follow-up after an ultrasound done last January 17 for her left breast. She continues to have this lump which she says occasionally becomes tender. She denies any nipple discharge. [facility] Medical History Gallstones Left breast mass Asthma Surgical History History of ankle surgery Family History Paternal Uncle Cancer of unknown origin Father Diabetes Mother Heart disease Social History Household Members: Children Housing: Apartment Alcohol intake: never Patient Tobacco Use Status: Never used Tobacco Current occupational status: unemployed Sexual orientation: Straight/Heterosexual Gender identity: Female Female Reproductive History Menstrual Age of Menarche: 13 Review of Systems Const Denies chills and Denies fever(s) Card Denies chest pain, Denies dyspnea and Denies dyspnea on exertion Resp Denies cough, Denies dyspnea and Denies dyspnea on exertion GI Denies hematochezia and Denies change in bowel habits Denies hematuria Musc Denies back pain and Denies limited range of motion Neuro Denies focal weakness and Denies convulsions Psych Denies depression and Denies mood swings Physical Exam Vital Signs: BMI result Body Mass Index 24.9 Const General: comfortable and no acute distress Chest Other: Well-defined mass on the left breast at the 7 o'clock position, mobile Resp Effort & Inspection: normal respiratory effort Cardio Rate: regular rate GI Palpation (GI): Soft to palpation Assessment & Plan Assessment & Plan (1) Left breast mass: Comment: 2 cm Left breast lump 2 o'clock 6 cm from the nipple Code(s): N63.20 - Unspecified lump in the left breast, unspecified quadrant Category: Medical Plan: The ultrasound shows the same lobulated mass as before with previous biopsy showing a fibroadenoma. There was note of an area of heterogenous breast tissue at the 2 o'clock position which is probably benign but a mammogram has been recommended in about 3 months to follow this She is thinking eventually having the fibroadenoma removed. I will see her in the office after her mammogram in March, She is comfortable with the plan. Coding Level of Care Code Est Pt Level 3 (75011) Diagnoses Left breast mass N63.20
[2024-01-27 13:51] VITALS: BMI 24.9
== END 2024-01-27 14:30 | disposition home or self-care (01) ==
PROVIDERS: PCP Internal Medicine; Referring Provider Internal Medicine; Visit Provider Surgery
DX: N63.20 Unspecified lump in the left breast, unspecified quadrant (principal)
CPT/HCPCS: 99213

== ENCOUNTER → 2024-01-27 13:46 | Outpatient (BNVA) | payer MEDICAID, SELFPAY | PROVIDERS: PCP Internal Medicine; Visit Provider Surgery | DX: N63.21 Unspecified lump in the left breast, upper outer quadrant (principal); D24.2 Benign neoplasm of left breast | CPT/HCPCS: 99212 ==

== ENCOUNTER 2024-02-10 12:47 | Outpatient (AMB) | payer MEDICAID, SELFPAY ==
--- NOTE | 2024-02-10 13:10 | A.OFFVIS_ITS ---
Intake Visit Reasons: microscopic hematuria Intake Note: New Patient is present for Microscopic Hematuria Abdomen/pelvis CT 07/27/23 showed lower pole left kidney nonobstructing 4mm and 1mm stones. 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 She is a patient of . She is seen for the following urologic conditions - nephrolithiasis Slovenian translation provided in office by qualified medical oncologist Microscopic hematuria Nephrolithiasis CT scan 4 mm left No symptoms Reassurance provided 12 month follow-up [facility] Medical History Gallstones Left breast mass Asthma Surgical History History of ankle surgery Family History Paternal Uncle Cancer of unknown origin Father Diabetes Mother Heart disease Social History Household Members: Children Housing: Apartment Alcohol intake: never Patient Tobacco Use Status: Never used Tobacco Current occupational status: unemployed Sexual orientation: Straight/Heterosexual Gender identity: Female Female Reproductive History Menstrual Age of Menarche: 13 Review of Systems Const Denies chills and Denies fever(s) Card Reports no additional complaints and Denies syncope Resp Denies cough GI Denies abdominal pain and Denies heartburn Reports as per HPI and Denies change in libido Neuro Denies syncope Psych Denies change in libido Endo Denies change in libido Physical Exam Const General: cooperative, healthy appearing, comfortable and no acute distress Orientation/consciousness: patient oriented x3 HEENT Face and sinus: Yes normal facial exam Mouth: moist mucous membranes Neck Neck: Yes normal visual inspection, Yes full ROM and Yes trachea midline Chest Chest palpation & inspection: normal inspection of the chest Resp Effort & Inspection: normal respiratory effort, able to speak in complete sentences and no respiratory distress GI Inspection: Yes normal to inspection Back/Spine/Pelvis Cervical Spine: normal cervical lordosis Thoracic/Lumbar Spine: thoracic and lumbar spine normal to inspection Skin General skin exam: no rashes or lesions noted Neuro General: patient oriented x3, gait normal, tone normal and moves all extremities Extrem General: Yes normal to inspection and Yes capillary refill normal Results AMB Urinalysis, Automated UA Leukoctes 15 Akash/uL Last Edit by Lakisha Butler A on 02/10/24 13:24 UA Nitrite Negative Last Edit by Lakisha Butler A on 02/10/24 13:24 UA Urobilinogen 0.2 mg/dL Last Edit by Lakisha Butler A on 02/10/24 13:2 4 UA Protein 0 mg/dL Last Edit by Lakisha Butler A on 02/10/24 13:24 UA pH 8.0 Last Edit by Lakisha Butler A on 02/10/24 13:24 UA Blood 0 Ihsan/uL Last Edit by Lakisha Butler A on 02/10/24 13:24 UA Specific [place] 1.010 Last Edit by Lakisha [facility] on 02/10/24 13: 24 UA Ketone Negative Last Edit by Lakisha Butler A on 02/10/24 13:24 UA Bilirubin 0 mg/dL Last Edit by Lakisha Butler A on 02/10/24 13:24 UA Glucose 0 mg/dL Last Edit by Lakisha Butler A on 02/10/24 13:24 Results Reviewed Results Reviewed: Laboratory Last Values Urine pH (Auto) 8.0 02/10/24 13:22 Specific [place] (Auto) 1.010 02/10/24 13:22 Urine Protein (Auto) 0 mg/dL 02/10/24 13:22 Glucose (UA)(Auto) 0 mg/dL 02/10/24 13:22 Urine Ketones (Auto) Negative 02/10/24 13:22 Urine Blood (Auto) 0 Ihsan/uL 02/10/24 13:22 Urine Nitrite (Auto) Negative 02/10/24 13:22 Urine Bilirubin (Auto) 0 mg/dL 02/10/24 13:22 Urine Urobilinogen (Auto) 0.2 mg/dL 02/10/24 13:22 Leukocyte Esterase (Auto) 15 Akash/uL 02/10/24 13:22 Assessment & Plan Assessment & Plan (1) Nephrolithiasis: Code(s): N20.0 - Calculus of kidney Category: Medical Plan Twelve month follow-up renal ultrasound Orders: Orders AMB Urinalysis Automated Today Z13.9 - Encounter for screening, unspecified Patient Instructions: Imaging studies, laboratory and physical exam results were discussed and reviewed in detail. No major barriers to patient understanding were identified. An opportunity to ask questions regarding the treatment plan was provided. All questions were answered. The patient expressed understanding and agreement with the above treatment plan. The patient is aware they should contact our office by phone for worsening of their current condition or the appearance of new urologic symptoms. Compliance is encouraged with any medications and followup testing that is ordered. It is a privilege to participate in the urologic care of your patient. If you have any questions or concerns regarding treatment for the above conditions, or other urologic issues, please do not hesitate to contact me. The office telephone contact is [phone]. This note is constructed using voice recognition software. While every effort has been made to ensure accuracy optical mechanic errors may have been included. Yours sincerely, Dr Clifford Long MD, [facility] - Urology Providers of Expert, Compassionate Care for the Genitourinary System Coding Level of Care Code New Pt Level 3 (31996) Diagnoses Nephrolithiasis N20.0
== END 2024-02-10 14:39 | disposition home or self-care (01) ==
PROVIDERS: PCP Internal Medicine; Referring Provider Internal Medicine; Visit Provider Urology
DX: N20.0 Calculus of kidney (principal); Z13.9 Encounter for screening, unspecified
CPT/HCPCS: 99203

== ENCOUNTER → 2024-02-10 12:47 | Outpatient (BNVA) | payer MEDICAID, SELFPAY | PROVIDERS: PCP Internal Medicine; Visit Provider Urology | DX: R31.29 Other microscopic hematuria (principal); N20.0 Calculus of kidney | CPT/HCPCS: 81003; 99202 ==

== ENCOUNTER 2024-03-29 09:23 | Outpatient (REF) | payer MEDICAID, SELFPAY ==
--- NOTE | ~2024-03-29 | CT_ITS ---
EXAMINATION: CT ABDOMEN AND PELVIS WITHOUT AND WITH CONTRAST CLINICAL INFORMATION: Microscopic hematuria. COMPARISON: CT abdomen and pelvis without contrast 07/27/2023. TECHNIQUE: Multidetector volumetric imaging was performed of the abdomen and pelvis before and after the IV administration of 85 mL of Omnipaque 300 intravenous contrast. Sagittal and coronal reformatted images were obtained on the technologist's workstation. This CT examination was performed using dose optimization techniques as appropriate, variously including the following: *Automated exposure control *Adjustment of mA and/or kV according to patient size (this includes techniques or standardized protocols for targeted exams where dose is matched to indication/reason for exam; i.e. extremities or head) *Use of iterative reconstruction technique DLP: 687 mGy-cm FINDINGS: LUNG BASES: The visualized lung bases are unremarkable. LIVER, GALLBLADDER, AND BILIARY TREE: The liver is normal in size, shape, and attenuation. No focal hepatic lesion or biliary ductal dilatation is present. The gallbladder contains multiple noncalcified gallstones but is otherwise unremarkable with no evidence of gallbladder wall thickening, or obvious pericholecystic inflammatory changes. PANCREAS: Unremarkable. SPLEEN: Unremarkable. ADRENAL GLANDS: Unremarkable. KIDNEYS AND URETERS: The kidneys are normal in size, shape, and attenuation. There is a 2.4 mm left lower pole nonobstructing calculus. No hydronephrosis or additional calculi seen. The collecting systems appear normal without filling defects or mucosal abnormalities. There are single ureters present bilaterally, which are unremarkable and follow a normal course to the bladder. No perinephric stranding. BLADDER: Unremarkable. GASTROINTESTINAL TRACT: The small and large bowel are unremarkable. The appendix is unremarkable. ABDOMINAL WALL: No significant hernia is appreciated. Tiny periumbilical hernia present containing only fat LYMPH NODES: Normal VASCULAR: Both ovarian veins are dilated. There are moderate pelvic varices, left greater than right. PELVIC VISCERA: The uterus and adnexa are unremarkable.. OSSEOUS STRUCTURES: Unremarkable. CT/CT abdomen pelvis wo/w IV con IMPRESSION: 1. A single 2.4 mm nonobstructing left lower pole renal calculus is present. 2. Incidental note made of cholelithiasis and dilated ovarian veins with pelvic varices. Fleischner guidelines were followed. Electronically signed by: Dominik Herrera MD 05/26/2024 09:55 AM EST
[2024-03-29] MEDS: iohexoL 350 MG/ML 100 ML INFUS..BTL IV (10:12)
== END 2024-03-29 09:24 | disposition home or self-care (01) ==
LOC: HO.CT 09:23
PROVIDERS: PCP Internal Medicine; Visit Provider Obstetrics & Gynecology
DX: R31.29 Other microscopic hematuria (principal)
CPT/HCPCS: 74178; Q9967

== ENCOUNTER 2024-04-19 12:47 | Outpatient (REF) | payer MEDICAID, SELFPAY ==
--- NOTE | ~2024-04-19 | US_ITS ---
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 COMPARISON: Mammography: None. Baseline examination. ULTRASOUND: Left 01/18/2024, left 01/18/2021, left breast ultrasound-guided biopsy of benign fibroadenoma 2:00 axis 01/30/2021. TECHNIQUE: Digital breast tomosynthesis is performed in both the craniocaudal and mediolateral oblique views along with computer-aided detection (CAD). Synthesized 2D images are generated from the tomosynthesis. FINDINGS: The breasts are heterogeneously dense, which may obscure small masses (ACR BI-RADS breast composition Category c). In the upper outer quadrant of the left breast, there is a lobular mass with internal biopsy clip, consistent with the given history of benign biopsy fibroadenoma. This appears to lie within the the area of palpable concern at the 2:00 axis. Otherwise, there are bilateral nipple piercings/bars in place. There are are no suspicious masses, suspicious grouped calcifications, or areas of architectural distortion in either breast. The parenchymal pattern is stable from prior exams. There is no skin or axillary abnormality. ULTRASOUND: CLINICAL INFORMATION: As above. COMPARISON: As above. TECHNIQUE: Targeted sonographic evaluation was performed using a high frequency linear transducer. Attention left breast was given to the upper outer quadrant in the region of palpable concern. Selected archived documentation. FINDINGS: LEFT BREAST: In the 2:00 axis of the left breast, there is a hypoechoic lobular mass with internal biopsy clip, good through transmission, scant internal color Doppler flow, measuring 1.1 x 1.2 x 1.5 cm (unchanged in size and morphology), in keeping with the known biopsied fibroadenoma. This appears to represent the palpable area of concern. This finding is benign. No additional suspicious findings. Questioned area adjacent to this fibroadenoma on prior ultrasound represents normal dense fibroglandular tissue. US/US breast LT limited mamm only IMPRESSION: -There are no findings suspicious for malignancy in either breast. -Palpable focus of concern correlates with the known biopsied benign fibroadenoma measuring up to 1.5 cm. -No further follow-up required. Patient should begin routine annual screening at age 39. OVERALL ASSESSMENT: Mammography: BI-RADS 2 - Benign Findings Ultrasound: BI-RADS 2 - Benign Findings RECOMMENDATION: Mammo at 40 or earlier if clinically needed Electronically signed by: Miguel A Jose MD 04/21/2024 09:21 AM EDT
== END 2024-04-19 12:48 | disposition home or self-care (01) ==
LOC: HO.MAMMO 12:47
PROVIDERS: PCP Student in an Organized Health Care Education/Training Program; Visit Provider Obstetrics & Gynecology
DX: R92.332 Mammographic heterogeneous density, left breast (principal)
CPT/HCPCS: 76642; 77062; 77066

== ENCOUNTER → 2024-04-19 13:00 | Outpatient (BNV) | payer MEDICAID, SELFPAY | PROVIDERS: PCP Student in an Organized Health Care Education/Training Program; Visit Provider Radiology Diagnostic Radiology | DX: N63.21 Unspecified lump in the left breast, upper outer quadrant (principal) | CPT/HCPCS: 76642; 77062; 77066 ==

== ENCOUNTER 2024-05-05 15:20 | Outpatient (AMB) | payer MEDICAID, SELFPAY ==
--- NOTE | 2024-05-05 15:25 | A.OFFVIS_ITS ---
Intake Visit Reasons: 4 week follow up - breast ultra sound Distribution Agent: Distribution Agent Present (Nissa) Accompanied by: Child Allergies ENVIRONMENTAL Allergy (Intermediate, Uncoded 02/10/24 13:22) RUNNY NOSE, SNEEZING HPI Comments Details: Presenting for follow-up regarding left breast mass. Left breast ultrasound with bilateral diagnostic mammogram were BI-RADS 2. The patient is scheduled for a breast consult in 1-2 weeks. No other complaint PFSH Medical History Gallstones Left breast mass Asthma Surgical History History of ankle surgery Family History Paternal Uncle Cancer of unknown origin Father Diabetes Mother Heart disease Social History Household Members: Children Housing: Apartment Alcohol intake: never Patient Tobacco Use Status: Never used Tobacco Current occupational status: unemployed Sexual orientation: Straight/Heterosexual Gender identity: Female Female Reproductive History Menstrual Age of Menarche: 13 Review of Systems Const All systems reviewed & are unremarkable except as noted in HPI and below Reports as per HPI and Reports no additional complaints GI Reports no additional complaints Reports no additional complaints Assessment & Plan Assessment & Plan (1) Left breast mass: Comment: 2 cm Left breast lump 2 o'clock 6 cm from the nipple Code(s): N63.20 - Unspecified lump in the left breast, unspecified quadrant Category: Medical Plan: Discussed with the patient the results the breast ultrasound and diagnostic mammogram, BI-RADS 2, instructions given the patient to keep her see General surgery appointment scheduled. All questions answered, the patient verbalized understanding Coding Level of Care Code Est Pt Level 3 (52343) Diagnoses Left breast mass N63.20
== END 2024-05-05 16:10 | disposition home or self-care (01) ==
LOC: HO.HWS 15:20
PROVIDERS: PCP Internal Medicine; Visit Provider Obstetrics & Gynecology
DX: N63.20 Unspecified lump in the left breast, unspecified quadrant (principal)
CPT/HCPCS: 99213

== ENCOUNTER → 2024-05-05 15:20 | Outpatient (BNVA) | payer MEDICAID, SELFPAY | PROVIDERS: PCP Internal Medicine; Visit Provider Obstetrics & Gynecology | DX: N63.21 Unspecified lump in the left breast, upper outer quadrant (principal) | CPT/HCPCS: 99212 ==

== ENCOUNTER 2024-05-11 10:46 | Outpatient (AMB) | payer MEDICAID, SELFPAY ==
[2024-05-11 10:47] VITALS: BMI 24.9
--- NOTE | 2024-05-11 10:47 | MHC.OFFVIS ---
Vital Signs 05/11/24 10:47 Height 5 ft 5 in Weight 149 lb 14.629 oz BMI 24.9 Intake Visit Reasons: s/p 04/19 mammo Intake Note: This patient presents for follow-up assessment for left breast mass, mammo and Breast US results. Pt c/o; reports palpable left breast mass. 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 She had a follow-up mammogram done weeks ago. She is here to discuss this She denies any new complaints. She does know that she has had this mass on the left breast couple of years now. She describes some tenderness once in a while. [facility] Medical History (Updated 05/11/24 @ 11:01 by Tim Medeiros MD) Fibroadenoma of left breast Gallstones Left breast mass Asthma Surgical History History of ankle surgery Family History Paternal Uncle Cancer of unknown origin Father Diabetes Mother Heart disease Social History Household Members: Children Housing: Apartment Alcohol intake: never Patient Tobacco Use Status: Never used Tobacco Current occupational status: unemployed Sexual orientation: Straight/Heterosexual Gender identity: Female Female Reproductive History Menstrual Age of Menarche: 13 Review of Systems Const Denies chills and Denies fever(s) Card Denies chest pain, Denies dyspnea and Denies dyspnea on exertion Resp Denies cough, Denies dyspnea and Denies dyspnea on exertion GI Denies hematochezia and Denies change in bowel habits Denies hematuria Musc Denies back pain and Denies limited range of motion Neuro Denies focal weakness and Denies convulsions Psych Denies depression and Denies mood swings Physical Exam Vital Signs: BMI result Body Mass Index 24.9 Const General: comfortable and no acute distress Chest Other: Vague mass on the left upper outer quadrant of the left breast, mild tenderness, no lymphadenopathy in the axilla, no other masses Resp Effort & Inspection: normal respiratory effort GI Palpation (GI): Soft to palpation and not firm Assessment & Plan Assessment & Plan (1) Fibroadenoma of left breast: Code(s): D24.2 - Benign neoplasm of left breast Category: Medical Plan: Her mammogram does show a hypoechoic lobular mass, 1.1 x 1.2 x 1.5 cm, unchanged from before. This is consistent with her known diagnosis of a fibroadenoma There were no other findings on either breasts. I explained to her the above findings and I told her that she was recommended to undergo her routine annual screening at the age of 39. I did tell her that if this fibroadenoma bothers her down the line, she may opt to have this removed. She says she will follow up with me on a p.r.n. basis. Coding Level of Care Code Est Pt Level 3 (79749) Diagnoses Fibroadenoma of left breast D24.2
== END 2024-05-11 10:58 | disposition home or self-care (01) ==
PROVIDERS: PCP Internal Medicine; Visit Provider Surgery
DX: D24.2 Benign neoplasm of left breast (principal)
CPT/HCPCS: 99213

== ENCOUNTER → 2024-05-11 10:46 | Outpatient (BNVA) | payer MEDICAID, SELFPAY | PROVIDERS: PCP Internal Medicine; Visit Provider Surgery | DX: D24.2 Benign neoplasm of left breast (principal) | CPT/HCPCS: 99212 ==

== ENCOUNTER 2024-05-18 08:19 | Emergency (ER) | payer OTHER, MEDICAID, SELFPAY ==
--- NOTE | ~2024-05-18 | XR_ITS ---
EXAMINATION: XR KNEE, LEFT CLINICAL INFORMATION: fall/swelling COMPARISON: None available. TECHNIQUE: Four views of the left knee. FINDINGS: No fracture or joint effusion. Alignment is anatomic. Joint spaces are maintained. No abnormal soft tissue calcification. XR/XR knee LT 4V IMPRESSION: No acute fracture or subluxation of the left knee. Electronically signed by: Owen Pearl MD 05/18/2024 09:17 AM [facility] [place]
[2024-05-18 08:26] VITALS: BP 119/83; PULSE 84; RESP 18; TEMP 36.7; O2SAT 100; BMI 28.3
--- NOTE | 2024-05-18 10:47 | ED.EXTPRO ---
HPI - Extremity Problem General Chief complaint: Extremity Problem Stated complaint: L knee injury Time Seen by Provider: 05/18/24 09:11 Source: patient and RN notes reviewed Mode of arrival: ambulatory Limitations: no limitations History of Present Illness ED Provider: Yeni Rainey PA-C HPI Narrative: This is a 82-rnbs-mgh-female who presents to the er with complaints of left knee pain. Pt was standing at work and her left knee gave out on her and she twisted her left knee and she fell forward landing onto her knee. Pt denies hitting head or LOC. Reports that she attempted to bear weight on her knee however feels as though her knee is unsteady. Denies taking any medications at home to treat her symptoms. No other complaints or concerns at this time. MD Complaint: extremity pain, extremity swelling, joint swelling and joint pain Onset (ago): day(s) Pain Consistency: constant Location: left Quality: aching Radiation: none Relieving factors: nothing Exacerbating factors: range of motion, weight bearing and palpation Associated symptoms: denies other symptoms Related Data Home Medications ?Medication ?Instructions ?Recorded ?Confirmed levonorgestrel 21 mcg/24 hr (up to intrauterine 11/19/23 05/11/24 8 years) 52 mg intrauterine device (Mirena) Previous Rx's ?Medication ?Instructions ?Recorded acetaminophen 500 mg tablet 500 mg PO Q6H PRN pain #30 tabs 05/18/24 (Tylenol Extra Strength) ibuprofen 600 mg tablet 600 mg PO Q6H PRN pain #30 tabs 05/18/24 Allergies Allergy/AdvReac Type Severity Reaction Status Date / Time ENVIRONMENTAL Allergy Intermediate RUNNY Uncoded 05/18/24 08:28 NOSE, SNEEZING Review of Systems Review of Systems: Yes all other systems are reviewed and are negative Constitutional: Constitutional: Reports as per HPI [facility] Past Medical History Attestation statement: The following information was validated with the patient. Medical History Fibroadenoma of left breast Gallstones Left breast mass Asthma Surgical History History of ankle surgery Family History Family History Paternal Uncle Cancer of unknown origin Father Diabetes Mother Heart disease Social History Social History Household Members: Children Housing: Apartment Alcohol intake: never Patient Tobacco Use Status: Never used Tobacco Advance Directives: No Advance Directives Information Provided: No Current occupational status: unemployed Sexual orientation: Straight/Heterosexual Gender identity: Female Physical Exam Vital Signs: Vital Signs: Last Vital Signs Temp 98.1 F 05/18/24 11:33 Pulse 84 05/18/24 11:33 Resp 18 05/18/24 11:33 BP 119/83 05/18/24 11:33 Pulse Ox 100 05/18/24 11:33 O2 Del Method Room Air 05/18/24 11:33 BMI result Body Mass Index 28.3 Const: General: cooperative, comfortable and no acute distress Orientation/consciousness: patient oriented x3 Limitations: no limitations HEENT: Head: Yes normal to inspection, Yes normocephalic and Yes atraumatic Ears: hearing grossly normal bilaterally General nose exam: Normal external nose present Face and sinus: Yes normal facial exam Mouth: Normal oral and palatal mucosa present, oropharynx normal and moist mucous membranes Throat: Yes posterior oropharynx normal Eyes: General: appearance normal, both eyes and all related structures Eyelids: Yes eyelids normal Conjunctivae: conjunctivae normal Sclerae: sclerae normal Pupils: Equal, round and reactive pupils present EOM: EOMs intact bilaterally Neck: Neck: Yes normal visual inspection, Yes full ROM and Yes no lymphadenopathy Lymphatic: no lymphadenopathy noted Chest: Chest palpation & inspection: normal inspection of the chest Resp: Effort & Inspection: normal respiratory effort and able to speak in complete sentences Auscultation: clear to auscultation bilaterally, no crackles, no rales, no rhonchi and no wheezes Cardio: Rate: regular rate Rhythm: regular rhythm Heart sounds: S1 normal heart sound present and S2 normal heart sound present GI: Inspection: Yes normal to inspection Skin: General skin exam: no rashes or lesions noted Trauma: no lacerations or abrasions Wounds: no wounds Neuro: General: patient oriented x3 and moves all extremities Cranial nerves: Yes Equal, round and reactive pupils present Extrem: Other: Left knee with point tenderness over the left lateral joint line. Knee with moderate effusion noted. No overlying open wounds. Pain with varus and valgus strain. Neg anterior and posterior drawer. DP pulse 2+. General: Yes normal to inspection Right upper extremity: normal to inspection Left upper extremity: normal to inspection Right lower extremity: normal to inspection Medical Decision Making Medical Decision Making MDM Narrative: This is a 29-year-old female who presents to the ER with complaints of left knee pain. Pt had twisting injury and landed onto her left knee. Xrays performed without acute fx. Discussed with pt. Given instability with joint effusion on exam, with pain with varus/valgus strain, concern for ligamentous involvement. Given finding, pt placed in knee immobilizer and given crutches. Will f/u with ortho. Pt d/c with strict return precaautions, Pt stable for d.c, Differential Diagnosis Differential Diagnoses: The differential diagnosis associated with the presentation includes sprain, strain, fracture, contusion Admission/Observation Consideration of admission/observation: Escalation of care including admission/observation considered Radiology Impression Discussion of test interpretation with radiology: I have reviewed the radiologist's reading. Radiologist Impression: [place] [id number] XRay Report Signed Patient: Lakisha Almonte MR#: [id number] : 1995 Acct:[id number] Age/Sex: 29 / F ADM Date: 05/18/24 Loc: HO.ED Attending Dr: Ordering Physician: Generic ED Physician Date of Service: 05/18/24 Procedure(s): XR knee LT 4V Accession Number(s): [id number] cc: Yanet Alvarez MD; Generic ED Physician~ EXAMINATION: XR KNEE, LEFT CLINICAL INFORMATION: fall/swelling COMPARISON: None available. TECHNIQUE: Four views of the left knee. FINDINGS: No fracture or joint effusion. Alignment is anatomic. Joint spaces are maintained. No abnormal soft tissue calcification. XR/XR knee LT 4V IMPRESSION: No acute fracture or subluxation of the left knee. Electronically signed by: Owen Pearl MD 05/18/2024 09:17 AM [facility] Dictated By: Owen Pearl MD Discharge Plan Discharge Clinical Impression: Sprain of left knee Patient Disposition: Home, Self-Care Instructions: Knee Sprain (ED), Crutch Instructions (ED), Knee Immobilizer (ED) Additional Instructions: You were seen in the emergency department after a fall. Your x-ray of your left knee did not show any broken bones however we are unable to rule out a ligament injury. Please take prescribed ibuprofen and Tylenol as needed for pain and symptoms. Rest, ice, and elevate. Use knee immobilizer whenever you are ambulatory. You may remove this for showering or sleeping. Please follow-up with the orthopedic physician, call today to make an appointment. If any new or worsening symptoms occur including but not limited to worsening pain, swelling, severe calf pain, chest pain, shortness of breath, please seek emergent care Prescriptions: New ibuprofen 600 mg tablet 600 mg PO Q6H PRN (Reason: pain) Qty: 30 0RF acetaminophen [Tylenol Extra Strength] 500 mg tablet 500 mg PO Q6H PRN (Reason: pain) Qty: 30 0RF No Action Mirena 21 mcg/24 hours (8 yrs) 52 mg intrauterine device intrauterine Referrals: [facility] [place] [facility] [place] [facility] [Provider Group] Stand Alone Forms: Work/School Release Interventions: ED Discharge Assessment Last Done: 05/18/24 11:33 Discharge Date/Time: 05/18/24 11:33 Print Language: Argentine
[2024-05-18 11:33] VITALS: BP 119/83; PULSE 84; RESP 18; TEMP 36.7; O2SAT 100
== END 2024-05-18 11:33 | disposition home or self-care (01) ==
PROVIDERS: Emergency Provider Emergency Medicine Emergency Medical Services; PCP Internal Medicine
DX: S83.92XA Sprain of unspecified site of left knee, initial encounter (principal); X50.1XXA Overexertion from prolonged static or awkward postures, initial encounter; Y93.89 Activity, other specified; Y92.59 Other trade areas as the place of occurrence of the external cause; Y99.0 Civilian activity done for income or pay
CPT/HCPCS: 73564; 99282; 99283

== ENCOUNTER 2024-05-26 10:50 | Outpatient (AMB) | payer MEDICAID, SELFPAY ==
--- NOTE | 2024-05-26 10:56 | MHC.OFFVIS ---
Intake Visit Reasons: CT scan results Allergies ENVIRONMENTAL Allergy (Intermediate, Uncoded 05/18/24 08:28) RUNNY NOSE, SNEEZING HPI Comments Details: The patient is scheduled tele health visit for CT scan of abdomen and pelvis follow-up which showed the following: IMPRESSION: 1. A single 2.4 mm nonobstructing left lower pole renal calculus is present. 2. Incidental note made of cholelithiasis and dilated ovarian veins with pelvic varices. PFSH Medical History Fibroadenoma of left breast Gallstones Left breast mass Asthma Surgical History History of ankle surgery Family History Paternal Uncle Cancer of unknown origin Father Diabetes Mother Heart disease Social History Household Members: Children Housing: Apartment Alcohol intake: never Patient Tobacco Use Status: Never used Tobacco Current occupational status: unemployed Sexual orientation: Straight/Heterosexual Gender identity: Female Female Reproductive History Menstrual Age of Menarche: 13 Review of Systems Const All systems reviewed & are unremarkable except as noted in HPI and below Reports as per HPI and Reports no additional complaints GI Reports no additional complaints Reports no additional complaints Telehealth Telehealth Telehealth Platform: Telephone Location of provider rendering services: practice address Location of patient: address on file Patient Identification confirmed using: Name, : Yes Telehealth method: video Patient verbally consented to treatment: Yes Patient verbally consented to billing insurance company: Yes Patient informed of any privacy concerns related to visit: Yes Assessment & Plan Assessment & Plan (1) Cholelithiasis: Code(s): K80.20 - Calculus of gallbladder without cholecystitis without obstruction Category: Medical Plan: Discussed with the patient the finding on CT scan showing cholelithiasis, the patient has seen Dr. Medeiros for a consult the recommendation was to contact his office in case of right upper quadrant pain in. Instructions given the patient to call Dr. Medeiros office in case of right upper quadrant pain, nausea or vomiting or fever or any other concerns. All questions answered, the patient verbalized understanding (2) Nephrolithiasis: Code(s): N20.0 - Calculus of kidney Category: Medical Plan: The patient had a consult with Urology, has a follow-up appointment scheduled in few months. Instructions given the patient to call or go to emergency room in case of left flank pain, fever or nausea or vomiting. All questions answered, the patient verbalized understanding and agreed with the plan (3) Pelvic congestion: Code(s): N94.89 - Other specified conditions associated with female genital organs and menstrual cycle Category: Medical Plan: Discussed with the patient the finding on CT scan showing pelvic congestion syndrome, since the patient does not have any signs and symptoms of chronic pelvic pain, with no indication for intervention at this point. instructions given the patient to call in case of pelvic pain. All questions answered, the patient verbalized understanding I spent a total of 20 minutes reviewing the chart, talking to the patient via video and documenting in the medical record. Coding Level of Care Code Tele Est Pt Level 3 (54088) Diagnoses Cholelithiasis K80.20 Nephrolithiasis N20.0 Pelvic congestion N94.89
== END 2024-05-26 11:10 | disposition home or self-care (01) ==
LOC: HO.HWS 10:50
PROVIDERS: PCP Internal Medicine; Visit Provider Obstetrics & Gynecology
DX: N94.89 Other specified conditions associated with female genital organs and menstrual cycle (principal); K80.20 Calculus of gallbladder without cholecystitis without obstruction; N20.0 Calculus of kidney
CPT/HCPCS: 99213

== ENCOUNTER → 2024-05-26 10:50 | Outpatient (BNVA) | payer MEDICAID, SELFPAY | PROVIDERS: PCP Internal Medicine; Visit Provider Obstetrics & Gynecology ==

== ENCOUNTER 2024-08-31 14:11 | Outpatient (REF) | payer MEDICAID, SELFPAY ==
--- OUTSIDE RECORDS SUMMARY | 2024-09-01 18:01 | XMS_ITS | Clinical Summary ---
Author Organization [facility] ity Address [address] [place] [address] Care Team Providers Care Adobe Cq Developer Name Role Phone Anthony Torres MD Primary Care Provider [phone] Social History Tobacco Use Types Packs/Day Years Used Date Smoking Tobacco: Never Assessed Comments Unknown Sex and Gender Information Value Date Recorded Sex Assigned at Not on file Legal Sex Female 7:33 PM EST Gender Identity Not on file Sexual Orientation Not on file Plan of Treatment Health Maintenance Due Date Last Done Comments Hepatitis B Vaccines (1 of 3 - 19+ 3-dose series) 2013 Cervical Cancer Screening: P ap Smear 2015 COVID-19 Vaccine (2023-2 5 season) 2024 Influenza Vaccine (#1) 2024 05/29/2017 DTaP,Tdap,and Td Vaccines (2 - Td or Tdap) 08/22/2027 08/21/2017 HIB Vaccines Aged Out No longer eligi ble based on patient's age to complete this topic HPV Vaccines Aged Out No longer eligi ble based on patient's age to complete this topic Hepatitis A Vaccines Aged Out No long er eligible based on patient's age to complete this topic IPV Vaccines Aged Out No longer eligi ble based on patient's age to complete this topic MMR Vaccines Aged Out No longer eligi ble based on patient's age to complete this topic Meningococcal ACWY Vaccine Aged Out N o longer eligible based on patient's age to complete this topic Meningococcal B Vacine Aged Out No lo nger eligible based on patient's age to complete this topic Pneumococcal Vaccine: Pediat rics (0 to 5 Years) and At-Risk Patients (6 to 64 Years) Aged Out No longer eligi ble based on patient's age to complete this topic RSV Immunization Patients Un missael 20 months Aged Out No longer eligible b ased on patient's age to complete this topic Varicella Vaccines Aged Out No longer eligible based on patient's age to complete this topic Care Teams Adobe Cq Developer Relationship Specialty Start Date End Date Anthony Torres MD [address] [phone] PCP - General 05/06/10
--- OUTSIDE RECORDS SUMMARY | 2024-09-01 18:01 | XMS_ITS | Clinical Summary ---
Author Organization [employer] Address [address] [facility] [address] [place] [address] Care Team Providers Care Cleaner Operator Name Role Phone Yanet Alvarez MD Primary Care Provide r Allergies No known active allergies Medications albuterol (ProAir HFA) 108 (90 Base) MCG/ACT inhaler Inhale 2 puffs every 4 (four) hours. 18 g 2 3 Active Additional Information Patient not taking.Reported on 07/31/2023 cyclobenzaprine (Flexeril) 10 MG tablet Take 1 tablet (10 mg) by mouth at bedtime for 10 days. 10 tablet 4 Active fluticasone (Flonase) 50 MCG/ACT nasal sprayIndications :Allergic rhinitis, unspecified seasonality, unspecified trigger INSTILL 1 SPRAY IN EACH NOSTRIL ONCE DAILY IN THE MORNING 48 g 4 Active cetirizine (ZyrTEC) 10 MG tabletIndication s:Allergic rhinitis, unspecified seasonality, unspecified trigger TAKE 1 TABLET BY MOUTH ONCE DAILY IN THE MORNING 90 tablet 1 4 Active loratadine-pseud oephedrine ER (Claritin-D 24 Hour) 10-240 MG 24 hr tabletIndication s:Viral upper respiratory tract infection Take 1 tablet by mouth Once per day. Do not crush, chew, or split. 30 tablet 11 4 12/17/19 25 Active ibuprofen 600 MG tabletIndication s:Left anterior knee pain Take 1 tablet 3 times daily with food for 1 week 21 tablet 5 Active Active Problems Problem Noted Date Diagnosed Date Viral upper respiratory tract infection 12/17/19 24 Assessment & Plan (12/17/2023 2:32 PM EDT): Drink plenty of fluids and rest Acetaminophen PRN Encounter for screening for cervical cancer 10/2023 Assessment & Plan (09/25/2023 5:09 PM EDT): PAP smear and pelvic exam done Patient will be contacted with results IUD check up 09/25/2023 Nexplanon insertion 09/25/2023 Allergic rhinitis 07/31/2023 UTI symptoms 07/20/2023 Kidney stones 07/20/2023 Assessment & Plan (07/20/2023 4:07 PM EST): I will refer her to urology Mild intermittent asthma without complication Assessment & Plan (07/31/2023 10:52 AM EST): Patient educated to avoid asthma triggers C/w albuterol PRN Assessment & Plan (07/20/2023 4:07 PM EST): Patient educated to avoid asthma triggers Albuterol refilled Healthcare maintenance 07/20/2023 Abdominal pain 06/11/2023 Assessment & Plan (06/11/2023 8:36 PM EST): Pt describes unspecific abd pain ,colicky ,has LE large ,no symptoms,nausea w no other complaints ,abd exam is benign .Will need to consider nephrolithiasis in the differential w features of symptoms -urinedipstick today: LE large , blood neg -Preg test is neg -Abd US 2018: Cholelithiasis. Pt has hx of cholelithiasis but current symptoms not consistent w this -UA w reflex cx -referred today for abd US and abd XR --if neg eval and ongoing symptoms will need to consider CT abd/pelvis -alarm signs and symptoms discussed in case needs to go to ED -simethicone prn ,tyleenol prn -hydration Encounters Date Type Department Care Team Description 07/20/2024 3:30 PM EST Office Visit [facility] [address] [place] [phone] Chiquita Silvestre, SARAH BETH Left anterior knee pain (Primary Dx); Recurrent left knee instability 07/20/2024 Travel 07/19/2024 Telephone [facility] [address] [place] [address] Gonzalez WandyDINORA chart prep 07/18/2024 Telephone [facility] [address] [facility] [place] [address] Yanet Alvarez MD Nurse Triage (/) from Last 3 Months Immunizations Name Administration Dates Next Due DTaP 10/16/1998, 5,1994,06/11,1994 HPV, Quadrivalent 06/28/2012,12/26/2010,08/24/19 10 Hep B, Adolescent or Pediatric 1994,1993,1994 Hib (HbOC) 06/01/1995, 5,1994,04/10 IPV 10/16/1998, 5,1994,04/10 Influenza Injectable Quadriv alant Preservative Free IIV4 MDCK 05/29/2017 Influenza injectable quadriv alent preservative free 07/31/2023 Influenza, IIV3, injectable 05/15/2008, 6 Influenza, live, intranasal 06/28/2012 MMR 10/16/1998,06/01/1995 Meningococcal MCV4P [id number]-135 2006 Pfizer Covid-19 Vaccine 12+ 08/06/2021, Tdap 08/21/2017,2006 Varicella 03/13/2000 Social History Tobacco Use Types Packs/Day Years Used Date Smoking Tobacco: Never Passive Smoke Exposure: Never Smokeless Tobacco: Never Tobacco Cessation:Counseling Given: Not Answered Depression Answer Date Recorded Patient Health Questionnaire-9 Score 0 07/31/2023 Patient Health Questionnaire-9 Score 0 07/31/2023 Last PHQ-9: Questionnaire Data Not on file 0 07/31/2023 Housing Stability Answer Date Recorded What is your housing situation today? I have meron anderson 07/20/[address] you li ve. Do you have problems with any of the following? None of the above 07/20/2023 Food Insecurity Answer Date Recorded Within the past 12 months, y ou worried that your food would run out before you got money to buy more: Never True 07/20/2023 Within the past 12 months,th e food you bought just didn't last and you didn't have enough money to get more: Never True Transportation Answer Date Recorded In the past 12 months, has l ack of transportation kept you from medical appts, meetings, work or from getting things needed for daily living? No 07/20/2023 Utilities Answer Date Recorded In the past 12 months, has t he electric, gas, oil or water company threatened to shut off services in your home? No 07/20/2023 Depression Answer Date Recorded Patient Health Questionnaire-2 Score 0 07/31/2023 Comments Unknown Sex and Gender Information Value Date Recorded Sex Assigned at Female 04/21/2022 10:16 AM EDT Legal Sex Female 10:16 AM EDT Gender Identity Female 04/21/2022 10:16 AM EDT Sexual Orientation Straight 04/21/2022 10 :16 AM EDT Last Filed Vital Signs Vital Sign Reading Time Taken Comments Blood Pressure 141/72 07/20/2024 3:42 PM EST Pulse 92 07/20/2024 3:42 PM EST Temperature 37.1 ??C (98.7 ??F) 07/20/2024 3:42 PM ES T Respiratory Rate 14 07/20/2024 3:42 PM EST Oxygen Saturation 98% 07/20/2024 3:42 PM EST Inhaled Oxygen Concentration - - Weight 69.9 kg (154 lb 3.2 oz) 07/20/2024 3:42 P M EST Height 165.1 cm (5' 5 ) 12/17/2023 1:22 PM EDT Body Mass Index 25.66 12/17/2023 1:22 PM EDT Plan of Treatment Health Maintenance Due Date Last Done Comments Family Planning (PISQ) 2009 Pneumococcal Vaccine: Pediatrics (0 to 5 Years) and At-Risk Patients (6 to 49) Years) (1 of 2 - PCV) 2013 HPV/Cotest 02/07/2024 COVID-19 Vaccine (3 - season) 2024 08/06/2021, 03/12/2021 Influenza Vaccine (#1) 2024 , 05/29/2017, 06/28/2012, Additional history exists SDOH Screening 07/20/2024 07/20/2023 Depression Screening 07/31/2024 07/31/2023, 07/31/19 24 Alcohol/Substance Use Screening 07/20/2025 07/20/2024 Tobacco Screening 07/20/2025 07/20/2024 DTaP/Tdap/Td Vaccines (8 - Td or Tdap) 08/22/2027 08/21/2017, 2006, 10/16/1998, Additional history exists Cervical Cancer Screening 09/24/2028 Pap Smear 09/24/2028 09/25/2023, 09/25/2023 Zoster Vaccines (1 of 2) 02/07/2044 RSV Patients and Patients Aged 60 years or older (1 - 1-dose 75+ series) 2069 Hepatitis B Vaccines Completed 1994, 1994, 1994 HIB Vaccines Completed 06/01/1995, 07/24, 1994, Additional history exists IPV Vaccines Completed 10/16/1998, 07/24, 1994, Additional history exists Meningococcal Vaccine Aged Out 2006 No mini jerod eligible based on patient's age to complete this topic HPV Vaccines Completed 06/28/2012, 12/2010, 08/23/2009 HIV Screening Completed 07/20/2023 Hepatitis C Screening Completed 07/20/2023 Hepatitis A Vaccines Aged Out No long er eligible based on patient's age to complete this topic RSV under 20 months Aged Out No longe r eligible based on patient's age to complete this topic Rotavirus Vaccines Aged Out No longer eligible based on patient's age to complete this topic Procedures Procedure Name Priority Date/Time Associated Diagnosis Comments IMAGE-GUIDED PAP W/AGE BASED SCR,W/CT/NG/TRICH Routine 09/25/2023 12:10 PM EDT Encounter for screening for cervical cancer HEPATITIS C AB W/REFL TO HCV RNA, QN, PCR Routine 07/20/2023 12:28 PM EST Healthcare maintenance HIV 1/2 ANTIGEN/ANTIBODY, FOURTH GENERATION W/RFL Routine 07/20/2023 12:28 PM EST Healthcare maintenance from Last 3 Months or Most Recently Relevant to Health Maintenance Results * Image-Guided Pap with Age-Based Screening??with CT/NG,??Trichomonas (09/25/2023 12:10 PM EDT) Trichomonas (NAAT) NOT DETECTED NOT DETECTED [facility] Comment:The analytical perfo rmance characteristics of thisassay have been determined by [facility]. Themodifications have not been cleared or approved bythe FDA. This assay has been validated pursuant to theCLIA regulations and is used for clinical purposes.For additional information, please refer tohttp://education.Decisyon/faq/Trichomonastma(This link is being provided for information/educational purposes only.)THIS TEST WAS PERFORMED AT:[employer] [address] [employer] [place] [id number] SRIVASTAVA MD CTNG Ref Lab NOT DETECTED NOT DETECTED [facility] NG Ref Lab NOT DETECTED NOT DETECTED [facility] Pap Vial 09/25/2023 12:1 0 PM EDT 09/29/2023 1:07 PM EDT Narrative [facility] - 10/01/2023 12:04 AM EDT Collection Date: us Yanet Pinon MD LAB CYTOLOGY ORDERABL ES Final Result [facility] [address] [place] [phone] * Hepatitis C Antibody with Reflex to HCV, RNA, Quantitative, Real-Time PCR (07/20/2023 12:28 PM EST) Hepatitis C Antibody Nonreactive Nonreactive [facility] Comment:Antibodies to HCV no t detected; does not exclude early acuteHCV infection. Blood Venous blood specimen / Unknown 07/20/2023 12:28 PM EST 07/20/2023 1:06 PM EST us Yanet Pinon MD LAB BLOOD ORDERABLES Final Result Performing Organization Address [facility]/ZIP Co de Phone Number [facility] [address] [place] [phone] * HIV-1/2 Antigen and Antibodies, Fourth Generation, with Reflexes (07/20/2023 12:28 PM EST) HIV AB/AG Nonreactive Nonreactive [facility] Comment:HIV-1 p24 Ag and/or HIV-1/HIV-2 Ab not detected.A test result that is nonreactive does not exclude thepossibility of exposure to or infection with HIV-1 and/orHIV-2. Nonreactive results in this assay for individualswith prior exposure to HIV-1 and/or HIV-2 may be due toantigen and antibody levels that are below the limit ofdetection of this assay.The [employer] HIV Ag/Ab Combo assay result andsupplemental assay results should be interpreted inconjunction with the patient's clinical presentation,history and other laboratory results. If the results areinconsistent with clinical evidence, additional testing issuggested to confirm the result. Blood Venous blood specimen / Unknown 07/20/2023 12:28 PM EST 07/20/2023 1:06 PM EST us Yanet Pinon MD LAB BLOOD ORDERABLES Final Result Performing Organization Address [facility]/ZIP Co de Phone Number [facility] [address] [place] [phone] from Last 3 Months or Most Recently Relevant to Health Maintenance Insurance [facility] ST[facility]ARD Care Teams Cleaner Operator Relationship Specialty Start Date End Date Yanet Alvarez MD [address] [place] [phone] PCP - General Family Medicine 03/03/18
== END 2024-08-31 14:12 | disposition home or self-care (01) ==
LOC: HO.HOSX 14:11
PROVIDERS: Visit Provider Physician Assistant
DX: Z13.89 Encounter for screening for other disorder (principal)

== ENCOUNTER 2024-09-19 11:38 | Outpatient (REF) | payer SELFPAY ==
[2024-09-19 13:21] LABS: HCG Quantitative < 2 mIU/mL
--- OUTSIDE RECORDS SUMMARY | 2024-09-19 13:23 | XMS_ITS | Encounter Summary ---
Author Organization [employer] Address [address] 7[address] [place] [address] Care Team Providers Care Landscaping Supervisor Name Role Phone Yanet Alvarez MD Primary Care Provide r Encounter Details Date Type Department Care Team (Late st Contact Info) Description 09/16/2024 Orders Only [facility] [address] [place], [place] [phone] Yanet Alvarez MD [address] [place], [place] [phone] Missed period (Primary Dx) Social History Tobacco Use Types Packs/Day Years Used Date Smoking Tobacco: Never Passive Smoke Exposure: Never Smokeless Tobacco: Never Depression Answer Date Recorded Patient Health Questionnaire-9 Score 0 07/31/2023 Patient Health Questionnaire-9 Score 0 07/31/2023 Last PHQ-9: Questionnaire Data Not on file 0 07/31/2023 Housing Stability Answer Date Recorded What is your housing situation today? I have meronmeagan anderson 07/20/[address] you [...] Orientation Straight 04/21/2022 10 :16 AM EDT documented as of this encounter Plan of Treatment Not on file documented as of this encounter Procedures Procedure Name Priority Date/Time Associated Diagnosis Comments HCG, TOTAL, QN Routine 09/19/2024 11:51 AM EDT Missed period documented in this encounter Results * hCG, Total, Quantitative (09/19/2024 11:51 AM EDT) HCG Quantitative <2 mIU/mL [facility] Comment:Weeks post LMP Appro ximate hCG(Last Menstrual Period) Range (mIU/ml)3 - 4 weeks 9 - 1304 - 5 weeks 75 - 2,6005 - 6 weeks 850 - 20,8006 - 7 weeks 4000 - 100,2007 - 12 weeks 11,500 - 289,71513 - 16 weeks 18,300 - 137,43527 - 29 weeks (2nd trimester) 1,400 - 53,07563 - 41 weeks (3rd trimester) 940 - 60,000The Hkanna B- hCG assay is used for the early detection ofpregnancy; it cannot be used to diagnose any conditionunrelated to . If a B-hCG level is not supportedby the clinical evidence, results should be confirmed by analternative method (qualitative urine hCG, for example). Blood Venous blood specimen / Unknown 09/19/2024 11:51 AM EDT 09/19/2024 11:51 AM EDT us Yanet Pinon MD LAB BLOOD ORDERABLES Final Result [facility] [address] [place] [phone] documented in this encounter Visit Diagnoses Diagnosis Missed period- Primary documented in this encounter Additional Health Concerns Assessment Noted Time PHQ-9 Depression Total Score: 0 07/31/19 24 10:19 AM EST documented as of this encounter Care Teams Landscaping Supervisor Relationship Specialty Start Date End Date Yanet Alvarez MD [address] [place] [address] PCP - General Family Medicine 03/03/18 documented as of this encounter
--- OUTSIDE RECORDS SUMMARY | 2024-09-19 13:23 | XMS_ITS | Clinical Summary ---
Author Organization [facility] ity Address [address] [place] [address] Care Team Providers Care Valet Attendant Name Role Phone Anthony Torres MD Primary Care Provider [phone] Social History Tobacco Use Types Packs/Day Years [...] age to complete this topic Care Teams Valet Attendant Relationship Specialty Start Date End Date Anthony Torres MD [address] [phone] PCP - General 05/06/10
--- OUTSIDE RECORDS SUMMARY | 2024-09-19 13:23 | XMS_ITS | Encounter Summary ---
Author Organization [employer] Address [address] [facility] [address]t [place] [address] Care Team Providers Care Clinical Admissions Manager Name Role Phone aYnet Alvarez MD Primary Care Provide r Reason for Visit * Reason Onset Date Comments Lab Orders 09/16/2024 Encounter Details Date Type Department Care Team (Late st Contact Info) Description 09/16/2024 Telephone [facility] [address] [place], [place] [phone] Yanet Alvarez MD [address] [place] [address] Lab Orders Social History Tobacco Use Types Packs/Day Years [...] AM EDT documented as of this encounter Miscellaneous Notes * Telephone Encounter - Maura Wilson RN - 09/16/2024 4:19 PM EDT Images from the original note were not included. TC placed to pt via Face to Face [employer] exchange trouble shooter (ID#[id number]) to inform of below PCP message. Pt verbalized understanding of PCP message and denies questions at this time. MD Maura Waters RN Replies will be sent to [facility] Red Team Nurses Caller: Unspecified (Today, 1:30 PM) Order is in thank you * Telephone Encounter - Maura Wilson RN - 09/16/2024 1:37 PM EDT TC placed to pt via [employer] exchange trouble shooter (Selena ID#[id number]) regarding request for lab order for .Pt reports she took a test and she thinks it is positive. LMP 08/15/24. Reports pain in her lower abdomen and nausea. Message forwarded to PCP to review and advise. * Telephone Encounter - Kaushal Hubbard - 09/16/2024 1:30 PM EDT Tc from pt requesting a lab order for test documented in this encounter Plan of Treatment Not on file documented as of this encounter Visit Diagnoses Not on filedocumented in this encounter Additional Health Concerns Assessment Noted Time PHQ-9 Depression Total Score: 0 07/31/19 24 10:19 AM EST documented as of this encounter Care Teams Clinical Admissions Manager Relationship Specialty Start Date End Date Yanet Alvarez MD [address] [place] [address] PCP - General Family Medicine 03/03/18 documented as of this encounter
--- OUTSIDE RECORDS SUMMARY | 2024-09-19 13:23 | XMS_ITS | Clinical Summary ---
Author Organization [employer] Address [address] [facility] 7t [place] [address] Care Team Providers Care Supervisor Cigar Making Machine Name Role Phone Yanet Alvarez MD Primary [...] Encounters Date Type Department Care Team Description 09/16/2024 Orders Only [facility] [address] [place] [phone] Yanet Alvarez MD Missed period (Primary Dx) 09/16/2024 Telephone [facility] [address] [place] [phone] Yanet Alvarez MD Lab Orders 09/02/2024 [address] Score [facility] (C3) Department [address] [place] [phone] Provider, Population Health Generic 07/20/2024 3:30 PM EST Office Visit [facility] [address] [place] [address] Chiquita Silvestre ANP Left anterior knee pain (Primary Dx); Recurrent left knee instability 07/20/2024 Travel 07/19/2024 Telephone [facility] [address] [place], [place] [phone] Wandy Gonzalez MA chart prep 07/18/2024 Telephone [facility] [address] [place], [place] [phone] Yanet Alvarez MD Nurse Triage (/) from [...] Routine 09/19/2024 11:51 AM EDT Missed period IMAGE-GUIDED PAP W/AGE BASED SCR,W/CT/NG/TRICH Routine 09/25/2023 12:10 PM EDT Encounter for screening for cervical cancer HEPATITIS C AB W/REFL TO HCV RNA, QN, PCR Routine 07/20/2023 12:28 PM EST Healthcare maintenance HIV 1/2 ANTIGEN/ANTIBODY, FOURTH GENERATION W/RFL Routine 07/20/2023 12:28 PM EST Healthcare maintenance from Last 3 Months or Most Recently Relevant to Health Maintenance Results * hCG, Total, Quantitative (09/19/2024 11:51 AM EDT) HCG Quantitative <2 mIU/mL [facility] Comment:Weeks post LMP Appro ximate hCG(Last Menstrual Period) Range (mIU/ml)3 - 4 weeks 9 - 1304 - 5 weeks 75 - 2,6005 - 6 weeks 850 - 20,8006 - 7 weeks 4000 - 100,2007 - 12 weeks 11,500 - 289,32499 - 16 weeks 18,300 - 137,26785 - 29 weeks (2nd trimester) 1,400 - 53,95388 - 41 weeks (3rd trimester) 940 - 60,000The Khanna B- hCG assay is used for the [...] Pinon MD LAB BLOOD ORDERABLES Final Result [facility] [address] [place] [phone] * Image-Guided Pap with Age-Based Screening??with CT/NG,??Trichomonas (09/25/2023 12:10 PM EDT) Trichomonas (NAAT) NOT DETECTED NOT DETECTED [facility] Comment:The analytical perfo rmance characteristics of thisassay have been determined by [employer]. Themodifications have not been cleared or approved bythe FDA. This assay has been validated pursuant to theIA regulations and is used for clinical purposes.For additional information, please refer tohttp://education.[employer]/faq/Trichomonastma(This link is being provided for information/educational purposes only.)THIS TEST WAS PERFORMED AT:[facility] [place] [id number] SRIVASTAVA MD CTNG Ref Lab NOT DETECTED NOT DETECTED [facility] NG Ref Lab NOT DETECTED NOT DETECTED [facility] Pap Vial 09/25/2023 12:1 0 PM EDT 09/29/2023 1:07 PM EDT Narrative [facility] - 10/01/2023 12:04 AM EDT Collection Date: Yanet Pinon MD LAB CYTOLOGY ORDERABL ES Final Result Performing Organization Address [facility]/State/ZIP Co de Phone Number [facility] [address] [place] [phone] * Hepatitis C Antibody with Reflex to HCV, RNA, Quantitative, Real-Time PCR (07/20/2023 12:28 PM EST) Hepatitis C Antibody Nonreactive Nonreactive [facility] Comment:Antibodies to HCV no t detected; does not exclude early acuteHCV infection. Blood Venous blood specimen / Unknown 07/20/2023 12:28 PM EST 07/20/2023 1:06 PM EST Yanet Pinon MD LAB BLOOD ORDERABLES Final Result Performing Organization Address [facility]/ZIP Co de Phone Number [facility] [address] [place] [phone] * HIV-1/2 Antigen and Antibodies, Fourth Generation, with Reflexes (07/20/2023 12:28 PM EST) HIV AB/AG Nonreactive Nonreactive [facility] Comment:HIV-1 p24 Ag and/or HIV-1/HIV-2 Ab not detected.A test result that is nonreactive does not exclude thepossibility of exposure to or infection with HIV-1 and/orHIV-2. Nonreactive results in this assay for individualswith prior exposure to HIV-1 and/or HIV-2 may be due toantigen and antibody levels that are below the limit ofdetection of this assay.The [employer] HIV Ag/Ab Combo assay result andsupplemental assay results should be interpreted inconjunction with the patient's clinical presentation,history and other laboratory results. If the results areinconsistent with clinical evidence, additional testing issuggested to confirm the result. Blood Venous blood specimen / Unknown 07/20/2023 12:28 PM EST 07/20/2023 1:06 PM EST us Yanet Pinon MD LAB BLOOD ORDERABLES Final Result Performing Organization Address [facility]/ZIP Co de Phone Number [facility] [address] [place] [phone] from Last 3 Months or Most Recently Relevant to Health Maintenance [facility] Care Teams Supervisor Cigar Making Machine Relationship Specialty Start Date End Date Yanet Alvarez MD [address] [place] [phone] PCP - General Family Medicine 03/03/18
== END 2024-09-19 11:39 | disposition home or self-care (01) ==
LOC: HO.XRAY 11:38
PROVIDERS: Absent Provider Physician Assistant; PCP Internal Medicine; Visit Provider Internal Medicine
DX: N92.6 Irregular menstruation, unspecified (principal)
CPT/HCPCS: 36415; 84702

== ENCOUNTER 2024-09-21 10:58 | Outpatient (REF) | payer MEDICAID, SELFPAY ==
--- OUTSIDE RECORDS SUMMARY | 2024-09-21 13:35 | XMS_ITS | Encounter Summary ---
Author Organization [employer] Address [address] [facility] [address] [facility] 7t [place] [address] Care Team Providers Care Sales Facilitator Name Role Phone Yanet Alvarez MD Primary Care Provide r Encounter Details Date Type Department Care Team (Late st Contact Info) Description 09/16/2024 Orders Only [facility] [address] [place], [place] [phone] Yanet Alvarez MD [address] [place], [place] [phone] Missed period (Primary Dx) Social History Tobacco [...] 11:51 AM EDT) HCG Quantitative <2 mIU/mL [facility] Comment:Weeks post LMP Appro ximate hCG(Last Menstrual Period) Range (mIU/ml)3 - 4 weeks 9 - 1304 - 5 weeks 75 - 2,6005 - 6 weeks 850 - 20,8006 - 7 weeks 4000 - 100,2007 - 12 weeks 11,500 - 289,21716 - 16 weeks 18,300 - 137,41869 - 29 weeks (2nd trimester) 1,400 - 53,31228 - 41 weeks (3rd trimester) 940 - [...] Pinon MD LAB BLOOD ORDERABLES Final Result [facility] [address] [place] [phone] documented in this encounter Visit Diagnoses Diagnosis Missed period- Primary documented in this encounter Additional Health Concerns Assessment Noted Time PHQ-9 Depression Total Score: 0 07/31/19 24 10:19 AM EST documented as of this encounter Care Teams Sales Facilitator Relationship Specialty Start Date End Date Yanet Alvarez MD [address] [place] [address] PCP - General Family Medicine 03/03/18 documented as of this encounter
--- OUTSIDE RECORDS SUMMARY | 2024-09-21 13:35 | XMS_ITS | Encounter Summary ---
Author Organization [employer] Address [address] [facility] 7t [place] [address] Care Team Providers Care Digital Media Strategist Name Role Phone Yanet Alvarez MD Primary Care Provide r Reason for Visit * Reason Onset Date Comments Lab Orders 09/16/2024 Encounter Details Date Type Department Care Team (Late st Contact Info) Description 09/16/2024 Telephone [facility] [address] [place], [place] [phone] Yanet Alvarez MD [address] [place] [address] Lab Orders Social History Tobacco Use Types [...] not included. TC placed to pt via [employer] sign language interpreter (ID#[id number]) to inform of below PCP message. Pt verbalized understanding of PCP message and denies questions at this time. MD Maura Waters RN Replies will be sent to [facility] Red Team Nurses Caller: Unspecified (Today, 1:30 PM) Order is in thank you * Telephone Encounter - Maura Wilson RN - 09/16/2024 1:37 PM EDT TC placed to pt via [employer] sign language interpreter (Selena ID#[id number]) regarding request for lab order for .Pt [...] documented as of this encounter Care Teams Digital Media Strategist Relationship Specialty Start Date End Date Yanet Alvarez MD [address] [place] [address] PCP - General Family Medicine 03/03/18 documented as of this encounter
--- OUTSIDE RECORDS SUMMARY | 2024-09-21 13:35 | XMS_ITS | Clinical Summary ---
Author Organization [employer] Address [address] [facility] 7t [place] [address] Care Team Providers Care Accounts Payable Specialist Name Role Phone Yanet Alvarez MD Primary [...] Department Care Team Description 09/16/2024 Orders Only [facility] [address] [place] [phone] Yanet Alvarez MD Missed period (Primary Dx) 09/16/2024 Telephone [facility] [address] [place] [phone] Yanet Alvarez MD Lab Orders 09/02/2024 Population Health Risk Score [facility] (C3) Department [address] [place] [phone] Provider, Population Health Generic 07/20/2024 3:30 PM EST Office Visit [facility] [address] [place] [address] Chiquita Silvestre ANP Left anterior knee pain (Primary Dx); Recurrent left knee instability 07/20/2024 Travel 07/19/2024 Telephone [facility] [address] [place], [place] [phone] Wandy Gonzalez MA chart prep 07/18/2024 Telephone [facility] [address] [place], [place] [phone] Yanet Alvarez MD Nurse Triage (/) from [...] 11:51 AM EDT) HCG Quantitative <2 mIU/mL [facility] Comment:Weeks post LMP Appro ximate hCG(Last Menstrual Period) Range (mIU/ml)3 - 4 weeks 9 - 1304 - 5 weeks 75 - 2,6005 - 6 weeks 850 - 20,8006 - 7 weeks 4000 - 100,2007 - 12 weeks 11,500 - 289,42329 - 16 weeks 18,300 - 137,14616 - 29 weeks (2nd trimester) 1,400 - 53,97588 - 41 weeks (3rd trimester) 940 - [...] Pinon MD LAB BLOOD ORDERABLES Final Result [facility] [address] [place] [phone] * Image-Guided Pap with Age-Based Screening??with CT/NG,??Trichomonas (09/25/2023 12:10 PM EDT) Trichomonas (NAAT) NOT DETECTED NOT DETECTED [facility] Comment:The analytical perfo rmance characteristics of thisassay have been determined by [employer]. Themodifications have not been cleared or approved bythe FDA. This assay has been validated pursuant to theIA regulations and is used for clinical purposes.For additional information, please refer tohttp://education.Mik[employer]dem[employer] | 3pay/faq/Trichomonastma(This link is being provided for information/educational purposes only.)THIS TEST WAS PERFORMED AT:[facility] [place] [phone] SRIVASTAVA MD CTNG Ref Lab NOT DETECTED NOT DETECTED [facility] NG Ref Lab NOT DETECTED NOT DETECTED [facility] Pap Vial 09/25/2023 12:1 0 PM EDT 09/29/2023 1:07 PM EDT Narrative [facility] - 10/01/2023 12:04 AM EDT Collection Date: Yanet Pinon MD LAB CYTOLOGY ORDERABL ES Final Result Performing Organization Address [facility]/State/ZIP Co de Phone Number [facility] [address] [place] [phone] * Hepatitis C Antibody with Reflex to HCV, RNA, Quantitative, Real-Time PCR (07/20/2023 12:28 PM EST) Hepatitis C Antibody Nonreactive Nonreactive [facility] Comment:Antibodies to HCV no t detected; does not exclude early acuteHCV infection. Blood Venous blood specimen / Unknown 07/20/2023 12:28 PM EST 07/20/2023 1:06 PM EST Yanet Pinon MD LAB BLOOD ORDERABLES Final Result Performing Organization Address [facility]/ZIP Co de Phone Number [facility] [address] [place] [phone] * HIV-1/2 Antigen and Antibodies, Fourth Generation, with Reflexes (07/20/2023 12:28 PM EST) HIV AB/AG Nonreactive Nonreactive [facility] Comment:HIV-1 p24 Ag and/or HIV-1/HIV-2 Ab not detected.A test result that is nonreactive does not exclude thepossibility of exposure to or infection with HIV-1 and/orHIV-2. Nonreactive results in this assay for individualswith prior exposure to HIV-1 and/or HIV-2 may be due toantigen and antibody levels that are below the limit ofdetection of this assay.The [employer] HIV Ag/Ab Combo assay result andsupplemental assay results should be interpreted inconjunction with the patient's clinical presentation,history and other laboratory results. If the results areinconsistent with clinical evidence, additional testing issuggested to confirm the result. Blood Venous blood specimen / Unknown 07/20/2023 12:28 PM EST 07/20/2023 1:06 PM EST us Yanet Pinon MD LAB BLOOD ORDERABLES Final Result Performing Organization Address [facility]/ZIP Co de Phone Number [facility] [address] [place] [phone] [phone] from Last 3 Months or Most Recently Relevant to Health Maintenance [facility] Care Teams Accounts Payable Specialist Relationship Specialty Start Date End Date Yanet Alvarez MD [address] [place] [phone] PCP - General Family Medicine 03/03/18"
--- OUTSIDE RECORDS SUMMARY | 2024-09-21 13:35 | XMS_ITS | Clinical Summary ---
Author Organization [facility] ity Address [address] [place] [address] Care Team Providers Care Africana Studies Professor Name Role Phone Anthony Torres MD Primary Care Provider [phone] Social History Tobacco Use Types Packs/Day Years [...] age to complete this topic Care Teams Africana Studies Professor Relationship Specialty Start Date End Date Anthony Torres MD [address] [address] PCP - General 05/06/10
[2024-09-21 16:33] LABS: CT PCR NOT DETECTED (Not Detect.); NG PCR NOT DETECTED (Not Detect.)
== END 2024-09-21 10:59 | disposition home or self-care (01) ==
LOC: HO.LNP 10:58
PROVIDERS: PCP Internal Medicine; Visit Provider Obstetrics & Gynecology
DX: N93.9 Abnormal uterine and vaginal bleeding, unspecified (principal)
CPT/HCPCS: 81025; 87491; 87591; 99212; 99459

== ENCOUNTER 2024-09-21 10:58 | Outpatient (AMB) | payer MEDICAID, SELFPAY ==
--- NOTE | 2024-09-21 10:58 | A.OFFVIS_ITS ---
Vital Signs 09/21/24 10:59 Height 5 ft 4 in Weight 150 lb BMI 25.7 Intake Visit Reasons: heavy menses Music Writer Required: No Information Interpreted: non-clinical & clinical Director Of Admissions: Director Of Admissions Present (Sandi PURCELL) Accompanied by: Self / Same As Patient Allergies ENVIRONMENTAL Allergy (Intermediate, Uncoded 09/21/24 11:01) RUNNY NOSE, SNEEZING HPI Comments Details: Presenting complaining of irregular menstrual cycles associated with passage of blood clots Last Pap smear done by his PCP in 10/13 was negative, no HPV PFSH Medical History Fibroadenoma of left breast Gallstones Left breast mass Asthma Surgical History History of ankle surgery Family History Paternal Uncle Cancer of unknown origin Father Diabetes Mother Heart disease Social History Household Members: Children Housing: Apartment Alcohol intake: never Patient Tobacco Use Status: Never used Tobacco Current occupational status: unemployed Sexual orientation: Straight/Heterosexual Gender identity: Female Female Reproductive History Menstrual Age of Menarche: 13 Review of Systems Const All systems reviewed & are unremarkable except as noted in HPI and below Physical Exam Vital Signs: BMI result Body Mass Index 25.7 General: Yes no CVA tenderness External Female Exam: normal external appearance and normal appearance of the urethra Speculum Exam - Vagina: normal appearance of the vagina, normal palpation, no lesions and no masses Speculum Exam - Cervix: normal appearance of the cervix, normal palpation, no lesions, no masses and nontender Bimanual exam- vagina & uterus: normal bimanual exam, normal palpation, uterine size normal, normal palpation, uterine shape normal, No Cervical tenderness present and non-tender Bimanual Exam- Adnexa, other: normal adnexae Back/Spine/Pelvis Back: no CVA tenderness Assessment & Plan Assessment & Plan (1) Abnormal uterine bleeding (AUB): Code(s): N93.9 - Abnormal uterine and vaginal bleeding, unspecified Category: Medical Plan: UPT done in the office was negative. GC and chlamydia taken CBC, TSH, HCG, and pelvic ultrasound ordered. Discussed with the patient the different causes of abnormal bleeding including thyroid disorders, uterine and ovarian patholog and other potential causes. Discussed with the patient the work up including CBC (to r/o anemia), TSH, pelvic Ultrasound. All questions answered and the patient verbalized understanding. Instructed the patient to schedule a follow-up appointment in 2 weeks. Orders: Orders Complete Blood Count no Diff Today N93.9 - Abnormal uterine and vaginal bleeding, unspecified TSH reflex Free T4 Today N93.9 - Abnormal uterine and vaginal bleeding, unspecified CT NG by PCR Today N93.9 - Abnormal uterine and vaginal bleeding, unspecified HCG Quantitative Today N93.9 - Abnormal uterine and vaginal bleeding, unspecified US pelvic and transvaginal Today N93.9 - Abnormal uterine and vaginal bleeding, unspecified Coding Level of Care Code Est Pt Level 3 (11160) Diagnoses Abnormal uterine bleeding (AUB) N93.9
[2024-09-21 10:59] VITALS: BMI 25.7
--- OUTSIDE RECORDS SUMMARY | 2024-09-21 13:11 | XMS_ITS | Encounter Summary ---
Author Organization [employer] Address [address] [facility] [address] 7t [place] [address] Care Team Providers Care Monorail Operator Name Role Phone Yanet Alvarez MD Primary Care Provide r Encounter Details Date Type Department Care Team (Late st Contact Info) Description 09/16/2024 Orders Only [facility] [address] [place], [place] [phone] Yanet Alvarez MD [address] [place], [place] [phone] Missed period (Primary Dx) Social History Tobacco [...] 11:51 AM EDT) HCG Quantitative <2 mIU/mL [facility] Comment:Weeks post LMP Appro ximate hCG(Last Menstrual Period) Range (mIU/ml)3 - 4 weeks 9 - 1304 - 5 weeks 75 - 2,6005 - 6 weeks 850 - 20,8006 - 7 weeks 4000 - 100,2007 - 12 weeks 11,500 - 289,31914 - 16 weeks 18,300 - 137,46703 - 29 weeks (2nd trimester) 1,400 - 53,36547 - 41 weeks (3rd trimester) 940 - [...] Pinon MD LAB BLOOD ORDERABLES Final Result [facility] [address] [place] [phone] documented in this encounter Visit Diagnoses Diagnosis Missed period- Primary documented in this encounter Additional Health Concerns Assessment Noted Time PHQ-9 Depression Total Score: 0 07/31/19 24 10:19 AM EST documented as of this encounter Care Teams Monorail Operator Relationship Specialty Start Date End Date Yanet Alvarez MD [address] [place] [address] PCP - General Family Medicine 03/03/18 documented as of this encounter
--- OUTSIDE RECORDS SUMMARY | 2024-09-21 13:11 | XMS_ITS | Clinical Summary ---
Author Organization [employer] Address [address] [facility] 7t [place] [address] Care Team Providers Care Hospitality Housekeeper Name Role Phone Yanet Alvarez MD Primary [...] Department Care Team Description 09/16/2024 Orders Only [facility] [address] [place] [phone] Yanet Alvarez MD Missed period (Primary Dx) 09/16/2024 Telephone [facility] [address] [place] [phone] Yanet Alvarez MD Lab Orders 09/02/2024 Population Health Risk Score [facility] (C3) Department [address] [place] [phone] Provider, Population Health Generic 07/20/2024 3:30 PM EST Office Visit [facility] [address] [place] [address] Chiquita Silvestre ANP Left anterior knee pain (Primary Dx); Recurrent left knee instability 07/20/2024 Travel 07/19/2024 Telephone [facility] [address] [place], [place] [phone] Wandy Gonzalez MA chart prep 07/18/2024 Telephone [facility] [address] [place], [place] [phone] Yanet Alvarez MD Nurse Triage (/) from [...] 11:51 AM EDT) HCG Quantitative <2 mIU/mL [facility] Comment:Weeks post LMP Appro ximate hCG(Last Menstrual Period) Range (mIU/ml)3 - 4 weeks 9 - 1304 - 5 weeks 75 - 2,6005 - 6 weeks 850 - 20,8006 - 7 weeks 4000 - 100,2007 - 12 weeks 11,500 - 289,22392 - 16 weeks 18,300 - 137,47382 - 29 weeks (2nd trimester) 1,400 - 53,91864 - 41 weeks (3rd trimester) 940 - [...] Pinon MD LAB BLOOD ORDERABLES Final Result [facility] [address] [place] [phone] * Image-Guided Pap with Age-Based Screening??with CT/NG,??Trichomonas (09/25/2023 12:10 PM EDT) Trichomonas (NAAT) NOT DETECTED NOT DETECTED [facility] Comment:The analytical perfo rmance characteristics of thisassay have been determined by [employer]. Themodifications have not been cleared or approved bythe FDA. This assay has been validated pursuant to theIA regulations and is used for clinical purposes.For additional information, please refer tohttp://education.[employer]/faq/Trichomonastma(This link is being provided for information/educational purposes only.)THIS TEST WAS PERFORMED AT:[employer] [place] [id number] SRIVASTAVA MD CTNG Ref Lab NOT DETECTED NOT DETECTED [facility] NG Ref Lab NOT DETECTED NOT DETECTED [facility] Pap Vial 09/25/2023 12:1 0 PM EDT 09/29/2023 1:07 PM EDT Narrative [facility] - 10/01/2023 12:04 AM EDT Collection Date: Yanet Pinon MD LAB CYTOLOGY ORDERABL ES Final Result Performing Organization Address [facility]/State/ZIP Co de Phone Number [facility] [address] [place] [phone] * Hepatitis C Antibody with Reflex to HCV, RNA, Quantitative, Real-Time PCR (07/20/2023 12:28 PM EST) Hepatitis C Antibody Nonreactive Nonreactive [facility] Comment:Antibodies to HCV no t detected; does not exclude early acuteHCV infection. Blood Venous blood specimen / Unknown 07/20/2023 12:28 PM EST 07/20/2023 1:06 PM EST Yanet Pinon MD LAB BLOOD ORDERABLES Final Result Performing Organization Address [facility]/ZIP Co de Phone Number [facility] [address] [place] [phone] * HIV-1/2 Antigen and Antibodies, Fourth Generation, with Reflexes (07/20/2023 12:28 PM EST) HIV AB/AG Nonreactive Nonreactive [facility] Comment:HIV-1 p24 Ag and/or HIV-1/HIV-2 Ab not detected.A test result that is nonreactive does not exclude thepossibility of exposure to or infection with HIV-1 and/orHIV-2. Nonreactive results in this assay for individualswith prior exposure to HIV-1 and/or HIV-2 may be due toantigen and antibody levels that are below the limit ofdetection of this assay.The [employer] HIV Ag/Ab Combo assay result andsupplemental assay results should be interpreted inconjunction with the patient's clinical presentation,history and other laboratory results. If the results areinconsistent with clinical evidence, additional testing issuggested to confirm the result. Blood Venous blood specimen / Unknown 07/20/2023 12:28 PM EST 07/20/2023 1:06 PM EST us Yanet Pinon MD LAB BLOOD ORDERABLES Final Result Performing Organization Address [facility]/ZIP Co de Phone Number [facility] [address] [place] [address] [phone] from Last 3 Months or Most Recently Relevant to Health Maintenance [facility] Care Teams Hospitality Housekeeper Relationship Specialty Start Date End Date Yanet Alvarez MD [address] [place] [phone] PCP - General Family Medicine 03/03/18
--- OUTSIDE RECORDS SUMMARY | 2024-09-21 13:11 | XMS_ITS | Encounter Summary ---
Author Organization [employer] Address [address] [facility] 7t [place] [address] Care Team Providers Care Operator Name Role Phone Yanet Alvarez MD Primary Care Provide r Reason for Visit * Reason Onset Date Comments Lab Orders 09/16/2024 Encounter Details Date Type Department Care Team (Late st Contact Info) Description 09/16/2024 Telephone [facility] [address] [place], [place] [phone] Yanet Alvarez MD [address] [place] [address] Lab Orders Social History Tobacco Use Types [...] not included. TC placed to pt via [employer] french cord binder (ID#[id number]) to inform of below PCP message. Pt verbalized understanding of PCP message and denies questions at this time. MD Maura Waters RN Replies will be sent to [facility] Red Team Nurses Caller: Unspecified (Today, 1:30 PM) Order is in thank you * Telephone Encounter - Maura Wilson RN - 09/16/2024 1:37 PM EDT TC placed to pt via [employer] french cord binder (Selena ID#[id number]) regarding request for lab order for .Pt [...] documented as of this encounter Care Teams Operator Relationship Specialty Start Date End Date Yanet Alvarez MD [address] [place] [address] PCP - General Family Medicine 03/03/18 documented as of this encounter
--- OUTSIDE RECORDS SUMMARY | 2024-09-21 13:11 | XMS_ITS | Clinical Summary ---
Author Organization [facility] ity Address [address] [place] [address] Care Team Providers Care Bulbs Farmworker Name Role Phone Anthony Torres MD Primary Care Provider [phone] Social History Tobacco Use Types Packs/Day Years [...] age to complete this topic Care Teams Bulbs Farmworker Relationship Specialty Start Date End Date Anthony Torres MD [address] [phone] PCP - General 05/06/10
== END 2024-09-21 11:16 | disposition home or self-care (01) ==
LOC: HO.HWS 10:58
PROVIDERS: PCP Internal Medicine; Visit Provider Obstetrics & Gynecology
DX: Z32.02 Encounter for pregnancy test, result negative (principal); N93.9 Abnormal uterine and vaginal bleeding, unspecified
CPT/HCPCS: 99213

== ENCOUNTER 2024-09-22 10:28 | Outpatient (REF) | payer MEDICAID, SELFPAY ==
--- OUTSIDE RECORDS SUMMARY | 2024-09-22 11:36 | XMS_ITS | Clinical Summary ---
Author Organization [employer] Address [address] [facility] 7t [place] [address] Care Team Providers Care Paleontology Teacher Name Role Phone Yanet Alvarez MD Primary [...] Encounters Date Type Department Care Team Description 09/21/2024 Orders Only GENERIC EXTERNAL DATA DEPARTMENT Provider, Generic External Data 09/16/2024 Orders Only [address] [address] Yanet Alvarez MD Missed period (Primary Dx) 09/16/[address] [place] [address] Yanet Alvarez MD Lab Orders 09/02/2024 Population Health Risk Score [facility] (C3) Department [address] [place] [phone] Provider, Population Health Generic 07/20/2024 3:30 PM EST Office Visit [facility] [address] [place] [address] Chiquita Silvestre ANP Left anterior knee pain (Primary Dx); Recurrent left knee instability 07/20/2024 Travel 07/19/[address] [facility] [address] [place] [address] Wandy Gonzalez MA chart prep 07/18/2024 Telephone [facility] [address] [place] [address] Yanet Alvarez MD Nurse Triage (/) from [...] [id number] 2006 Pfizer Covid-19 Vaccine 12+ 08/06/2021, 1 Tdap 08/21/2017,2006 Varicella 03/13/2000 Social History Tobacco [...] complete this topic HPV Vaccines Completed 06/28/2012, 07/0 12/2010, 08/23/2009 HIV Screening Completed 07/20/2023 Hepatitis [...] Procedure Name Priority Date/Time Associated Diagnosis Comments CHLAMYDIA/N. GONORRHOEAE RNA, TMA, UROGENITAL Routine 09/21/2024 11:00 AM EDT HCG, TOTAL, QN Routine 09/19/2024 11:51 AM [...] Recently Relevant to Health Maintenance Results * Chlamydia/N. Gonorrhoeae RNA, TMA, Urogenitial (09/21/2024 11:00 AM EDT) CT PCR NOT DETECTED Not Detect. [facility] Comment:A not detected test result does not exclude the possibilityof infection because test results can be affected byimproper specimen collection, concurrent antibiotic therapy,or the number of organisms in the specimen which may bebelow the sensitivity of the test. As with many diagnostictests, results from the Xpert CT/NG assay should beinterpreted in conjunction with other laboratory andclinical data available to the clinician.Xpert CT/NG performance has not been evaluated in patientsless than 14 years of age. The assay should not be used forthe evaluationof suspected sexual abuse or for other medico-legalindications. Additional testing is recommended in anycircumstance when false positive or false negative resultscould lead to adverse medical, social or psychologicalconsequences. NG PCR NOT DETECTED Not Detect. [facility] Comment:A not detected test result does not exclude the possibilityof infection because test results can be affected byimproper specimen collection, concurrent antibiotic therapy,or the number of organisms in the specimen which may bebelow the sensitivity of the test. As with many diagnostictests, results from the Xpert CT/NG assay should beinterpreted in conjunction with other laboratory andclinical data available to the clinician.Xpert CT/NG performance has not been evaluated in patientsless than 14 years of age. The assay should not be used forthe evaluationof suspected sexual abuse or for other medico-legalindications. Additional testing is recommended in anycircumstance when false positive or false negative resultscould lead to adverse medical, social or psychologicalconsequences. 09/21/2024 11:0 0 AM EDT 09/21/2024 2:27 PM EDT Narrative [facility] - 09/21/2024 4:33 PM EDT Vaginal us Generic External Data Provider LAB MICROBIOLOGY - GENERAL ORDERABLES Final Result [facility] [address] [place] [phone] * hCG, Total, Quantitative (09/19/2024 11:51 AM EDT) HCG Quantitative <2 mIU/mL [facility] Comment:Weeks post LMP Appro ximate hCG(Last Menstrual Period) Range (mIU/ml)3 - 4 weeks 9 - 1304 - 5 weeks 75 - 2,6005 - 6 weeks 850 - 20,8006 - 7 weeks 4000 - 100,2007 - 12 weeks 11,500 - 289,54890 - 16 weeks 18,300 - 137,77275 - 29 weeks (2nd trimester) 1,400 - 53,74837 - 41 weeks (3rd trimester) 940 - [...] 11:51 AM EDT 09/19/2024 11:51 AM EDT Yanet Pinon MD LAB BLOOD ORDERABLES Final Result Performing Organization Address [facility] Co de Phone Number [facility] [address] [place] [phone] * Image-Guided Pap with Age-Based Screening??with CT/NG,??Trichomonas (09/25/2023 12:10 PM EDT) Trichomonas (NAAT) NOT DETECTED NOT DETECTED [facility] Comment:The analytical perfo rmance characteristics of thisassay have been determined by [employer]. Themodifications have not been cleared or approved bythe FDA. This assay has been validated pursuant to theIA regulations and is used for clinical purposes.For additional information, please refer tohttp://education.[employer]/faq/Trichomonastma(This link is being provided for information/educational purposes only.)THIS TEST WAS PERFORMED AT:[employer] [place] [phone] SRIVASTAVA MD CTNG Ref Lab NOT DETECTED NOT DETECTED [facility] NG Ref Lab NOT DETECTED NOT DETECTED [facility] Pap Vial 09/25/2023 12:1 0 PM EDT 09/29/2023 1:07 PM EDT Narrative [facility] - 10/01/2023 12:04 AM EDT Collection Date: [id number] us Yanet Pinon MD LAB CYTOLOGY ORDERABL ES Final Result Performing Organization Address [facility] Co de Phone Number [facility] [address] [place] [phone] * Hepatitis C Antibody with Reflex to HCV, RNA, Quantitative, Real-Time PCR (07/20/2023 12:28 PM EST) Hepatitis C Antibody Nonreactive Nonreactive [facility] Comment:Antibodies to HCV no t detected; does not exclude early acuteHCV infection. Blood Venous blood specimen / Unknown 07/20/2023 12:28 PM EST 07/20/2023 1:06 PM EST us Yanet Pinon MD LAB BLOOD ORDERABLES Final Result Performing Organization Address [facility]/ZIP Co de Phone Number [facility] [address] [place] [phone] * HIV-1/2 Antigen and Antibodies, Fourth Generation, with Reflexes (07/20/2023 12:28 PM EST) [facility] HIV AB/AG Nonreactive Nonreactive [facility] Comment:HIV-1 p24 Ag and/or HIV-1/HIV-2 Ab not detected.A test result that is nonreactive does not exclude thepossibility of exposure to or infection with HIV-1 and/orHIV-2. Nonreactive results in this assay for individualswith prior exposure to HIV-1 and/or HIV-2 may be due toantigen and antibody levels that are below the limit ofdetection of this assay.The [employer] HIV Ag/Ab Combo assay result andsupplemental assay results should be interpreted inconjunction with the patient's clinical presentation,history and other laboratory results. If the results areinconsistent with clinical evidence, additional testing issuggested to confirm the result. Blood Venous blood specimen / Unknown 07/20/2023 12:28 PM EST 07/20/2023 1:06 PM EST us Yanet Pinon MD LAB BLOOD ORDERABLES Final Result Performing Organization Address City/[facility]/ZIP Co de Phone Number [facility] [address] [place] [address] [phone] from Last 3 Months or Most Recently Relevant to Health Maintenance Insurance [facility] STANDARD Care Teams Paleontology Teacher Relationship Specialty Start Date End Date Yanet Alvarez MD [address] [place] [phone] PCP - General Family Medicine 03/03/18
--- OUTSIDE RECORDS SUMMARY | 2024-09-22 11:36 | XMS_ITS | Encounter Summary ---
Author Organization [employer] Address [address] [facility] [address] [place] [address] Care Team Providers Care Dressmaker Garment Fitter Name Role Phone Yanet Alvarez MD Primary Care Provide r Encounter Details Date Type Department Care Team (Late st Contact Info) Description 09/21/2024 Orders Only GENERIC EXTERNAL DATA DEPARTMENT Provider, Generic External Data Social History Tobacco Use Types Packs/Day Years [...] TMA, UROGENITAL Routine 09/21/2024 11:00 AM EDT documented in this encounter Results * Chlamydia/N. Gonorrhoeae RNA, TMA, Urogenitial (09/21/2024 11:00 AM EDT) CT PCR NOT DETECTED Not Detect. [facility] Comment:A not detected test result does [...] psychologicalconsequences. NG PCR NOT DETECTED Not Detect. [facility] Comment:A not detected test result does [...] AM EDT 09/21/2024 2:27 PM EDT Narrative [facility] - 09/21/2024 4:33 PM EDT Vaginal us Generic External Data Provider LAB MICROBIOLOGY - GENERAL ORDERABLES Final Result [facility] [address] [place] [address] [phone] documented in this encounter Visit Diagnoses Not on filedocumented in this encounter Additional Health Concerns Assessment Noted Time PHQ-9 Depression Total Score: 0 07/31/19 24 10:19 AM EST documented as of this encounter Care Teams Dressmaker Garment Fitter Relationship Specialty Start Date End Date Yanet Alvarez MD [address] [place] [address] PCP - General Family Medicine 03/03/18 documented as of this encounter
--- OUTSIDE RECORDS SUMMARY | 2024-09-22 11:36 | XMS_ITS | Clinical Summary ---
Author Organization [facility] ity Address [address] [place] [address] Care Team Providers Care Lead Business Systems Analyst Name Role Phone Anthony Torres MD Primary Care Provider [phone] Social History Tobacco Use Types Packs/Day Years [...] age to complete this topic Care Teams Lead Business Systems Analyst Relationship Specialty Start Date End Date Anthony Torres MD [address] [address] PCP - General 05/06/10
[2024-09-22 11:52] LABS: Hematocrit 37.3 % (37.0-47.0); Hemoglobin 12.2 g/dl (12.0-16.0); Mean Corpuscular HGB Conc 32.7 g/dl (31.0-35.0); Mean Corpuscular Hemoglobin 30.7 pg (27.0-33.0); Mean Corpuscular Volume 93.7 fL (80.0-98.0); Mean Platelet Volume 9.9 fL (9.4-12.3); Platelet Count 290 X10*3/uL (160-400); Red Blood Count 3.98 X10*6/uL (4.20-5.50); Red Cell Distribution Width 13.2 % (11.0-16.0); White Blood Count 5.3 X10*3/uL (4.8-10.8)
[2024-09-22 12:38] LABS: HCG Quantitative < 2 mIU/mL; TSH reflex Free T4 0.74 uIU/mL (0.32-4.0)
== END 2024-09-22 10:29 | disposition home or self-care (01) ==
LOC: HO.LAB 10:28
PROVIDERS: PCP Student in an Organized Health Care Education/Training Program; Visit Provider Obstetrics & Gynecology
DX: N93.9 Abnormal uterine and vaginal bleeding, unspecified (principal)
CPT/HCPCS: 36415; 84443; 84702; 85027

== ENCOUNTER 2024-10-14 12:27 | Outpatient (REF) | payer MEDICAID, SELFPAY ==
--- OUTSIDE RECORDS SUMMARY | 2024-10-14 13:08 | XMS_ITS | Clinical Summary ---
Author Organization [employer] Address [address] [facility] 7t [place] [address] Care Team Providers Care Enthone Solder Stripper Name Role Phone Yanet Alvarez MD Primary [...] Encounters Date Type Department Care Team Description 09/22/2024 Orders Only GENERIC EXTERNAL DATA DEPARTMENT Provider, Generic External Data 09/21/2024 Orders Only GENERIC EXTERNAL DATA DEPARTMENT Provider, Generic External Data 09/16/2024 Orders Only [address] [address] Yanet Alvarez MD Missed period (Primary Dx) 09/16/2024 Telephone [facility] [address] [place] [address] Yanet Alvarez MD Lab Orders 09/02/2024 Population Health Risk Score [facility] (C3) Department [address] [place] [phone] Provider, Population Health Generic 07/20/2024 3:30 PM EST Office Visit [facility] [address] [place] [address] Chiquita Silvestre ANP Left anterior knee pain (Primary Dx); Recurrent left knee instability 07/20/2024 Travel 07/19/2024 Telephone [facility] [address] [place] [address] Wandy Gonzalez MA chart prep 07/18/2024 Telephone [facility] [address] [place] [address] Yanet Alvarez MD Nurse Triage (/) from [...] Associated Diagnosis Comments HCG, TOTAL, QN Routine 09/22/2024 10:41 AM EDT TSH W/REFLEX TO FT4 Routine 09/22/2024 1 0:41 AM EDT CBC Routine 09/22/2024 10:41 AM EDT CHLAMYDIA/N. GONORRHOEAE RNA, TMA, UROGENITAL Routine 09/21/2024 [...] Recently Relevant to Health Maintenance Results * TSH with Reflex to Free T4 (09/22/2024 10:41 AM EDT) TSH reflex Free T4 0.74 0.32 - 4.0 uIU/mL [facility] 09/22/2024 10:4 1 AM EDT 09/22/2024 10:41 AM EDT us Generic External Data Provider LAB BLOOD ORDERAB LES Final Result [facility] [address] [place] [phone] * (ABNORMAL) CBC (09/22/2024 10:41 AM EDT) White Blood Count 5.3 4.8 - 10.8 X10*3/uL [facility] Red Blood Count 3.98(L) 4.20 - 5.50 X10*6/uL [facility] Hemoglobin 12.2 12.0 - 16.0 g/dl [facility] Hematocrit 37.3 37.0 - 47.0 % [facility] Mean Corpuscular Volume 93.7 80.0 - 98.0 fL [facility] Mean Corpuscular Hemoglobin 30.7 27.0 - 33.0 pg [facility] Mean Corpuscular HGB Conc 32.7 31.0 - 35.0 g/dl [facility] Red Cell Distribution Width 13.2 11.0 - 16.0 % [facility] Platelet Count 290 160 - 400 X10*3/uL [facility] Mean Platelet Volume 9.9 9.4 - 12.3 fL [facility] NRBC Pct Auto 0.0 0.0 - 0.2 /100WBC [facility] NRBC Abs Auto 0.000 0.0 - 0.012 X10*3/uL [facility] 09/22/2024 10:4 1 AM EDT 09/22/2024 10:41 AM EDT us Generic External Data Provider LAB BLOOD ORDERAB LES Final Result [facility] [address] [place] [phone] [phone] * hCG, Total, Quantitative (09/22/2024 10:41 AM EDT) Only the most recent of2 resultswithin the time period is included. HCG Quantitative <2 mIU/mL [facility] Comment:Weeks post LMP Appro ximate hCG(Last Menstrual Period) Range (mIU/ml)3 - 4 weeks 9 - 1304 - 5 weeks 75 - 2,6005 - 6 weeks 850 - 20,8006 - 7 weeks 4000 - 100,2007 - 12 weeks 11,500 - 289,38870 - 16 weeks 18,300 - 137,87643 - 29 weeks (2nd trimester) 1,400 - 53,93122 - 41 weeks (3rd trimester) 940 - 60,000The Khanna B- hCG assay is used for the early detection ofpregnancy; it cannot be used to diagnose any conditionunrelated to . If a B-hCG level is not supportedby the clinical evidence, results should be confirmed by analternative method (qualitative urine hCG, for example). 09/22/2024 10:4 1 AM EDT 09/22/2024 10:41 AM EDT us Generic External Data Provider LAB BLOOD ORDERAB LES Final Result [facility] [address] [place] [phone] * Chlamydia/N. Gonorrhoeae RNA, TMA, Urogenitial (09/21/2024 11:00 AM EDT) CT PCR NOT DETECTED Not Detect. [facility] Comment:A not detected test result [...] psychologicalconsequences. NG PCR NOT DETECTED Not Detect. [facility] Comment:A not detected test result [...] AM EDT 09/21/2024 2:27 PM EDT Narrative [facility] - 09/21/2024 4:33 PM EDT Vaginal us Generic External Data Provider LAB MICROBIOLOGY - GENERAL ORDERABLES Final Result [facility] [address] [place] [phone] [phone] * Image-Guided Pap with Age-Based Screening??with CT/NG,??Trichomonas (09/25/2023 12:10 PM EDT) Pathologist Madelin Trichomonas (NAAT) NOT DETECTED NOT DETECTED [facility] Comment:The analytical perfo rmance characteristics of thisassay have been determined by [employer]. Themodifications have not been cleared or approved bythe FDA. This assay has been validated pursuant to theIA regulations and is used for clinical purposes.For additional information, please refer tohttp://education.[employer]/faq/Trichomonastma(This link is being provided for information/educational purposes only.)THIS TEST WAS PERFORMED AT:[employer] [place] [phone] SRIVASTAVA MD CTNG Ref Lab NOT DETECTED NOT DETECTED [facility] NG Ref Lab NOT DETECTED NOT DETECTED [facility] Pap Vial 09/25/2023 12:1 0 PM EDT 09/29/2023 1:07 PM EDT Narrative [facility] - 10/01/2023 12:04 AM EDT Collection Date: [id number] Yanet Pinon MD LAB CYTOLOGY ORDERABL ES Final Result Performing Organization Address [facility] Co de Phone Number [facility] [address] [place] [address] [phone] * Hepatitis C Antibody with Reflex to HCV, RNA, Quantitative, Real-Time PCR (07/20/2023 12:28 PM EST) Hepatitis C Antibody Nonreactive Nonreactive [facility] Comment:Antibodies to HCV no t detected; does not exclude early acuteHCV infection. Blood Venous blood specimen / Unknown 07/20/2023 12:28 PM EST 07/20/2023 1:06 PM EST us Ynaet Pinon MD LAB BLOOD ORDERABLES Final Result Performing Organization Address [facility] Co de Phone Number [facility] [address] [place] [phone] [phone] * HIV-1/2 Antigen and Antibodies, Fourth Generation, with Reflexes (07/20/2023 12:28 PM EST) HIV AB/AG Nonreactive Nonreactive [facility] Comment:HIV-1 p24 Ag and/or HIV-1/HIV-2 Ab not detected.A test result that is nonreactive does not exclude thepossibility of exposure to or infection with HIV-1 and/orHIV-2. Nonreactive results in this assay for individualswith prior exposure to HIV-1 and/or HIV-2 may be due toantigen and antibody levels that are below the limit ofdetection of this assay.The [employer] HIV Ag/Ab Combo assay result andsupplemental assay results should be interpreted inconjunction with the patient's clinical presentation,history and other laboratory results. If the results areinconsistent with clinical evidence, additional testing issuggested to confirm the result. Blood Venous blood specimen / Unknown 07/20/2023 12:28 PM EST 07/20/2023 1:06 PM EST Yanet Pinon MD LAB BLOOD ORDERABLES Final Result [facility] [address] [place] [address] [phone] from Last 3 Months or Most Recently Relevant to Health Maintenance Insurance [facility] STANDARD Care Teams Enthone Solder Stripper Relationship Specialty Start Date End Date Yanet Alvarez MD [address] [place] [phone] PCP - General Family Medicine 03/03/18
--- OUTSIDE RECORDS SUMMARY | 2024-10-14 13:08 | XMS_ITS | Clinical Summary ---
Author Organization [facility] ity Address [address] [place] [address] Care Team Providers Care Funeral Home General Manager Name Role Phone Anthony Torres MD Primary Care Provider [phone] Social History Tobacco Use Types Packs/Day Years [...] Vaccine (2023-2 5 season) 2024 Influenza Vaccine (Season Ended) 2025 05/29/20 17 DTaP,Tdap,and Td Vaccines (2 - Td or [...] age to complete this topic Meningococcal B Vaccine Aged Out No l onger eligible based on patient's age to complete [...] age to complete this topic Care Teams Funeral Home General Manager Relationship Specialty Start Date End Date Anthony Torres MD [address] [address] PCP - General 05/06/10
== END 2024-10-14 12:28 | disposition home or self-care (01) ==
LOC: HO.US 12:27
PROVIDERS: PCP Internal Medicine; Visit Provider Obstetrics & Gynecology
DX: N93.9 Abnormal uterine and vaginal bleeding, unspecified (principal)
CPT/HCPCS: 76830; 76856

== ENCOUNTER → 2024-10-14 12:30 | Outpatient (BNV) | payer MEDICAID, SELFPAY | PROVIDERS: PCP Internal Medicine; Visit Provider Radiology Diagnostic Radiology | DX: N93.9 Abnormal uterine and vaginal bleeding, unspecified (principal) | CPT/HCPCS: 76830; 76856 ==

== ENCOUNTER → 2024-10-19 09:12 | Outpatient (BNVA) | payer MEDICAID, SELFPAY | PROVIDERS: PCP Student in an Organized Health Care Education/Training Program; Visit Provider Obstetrics & Gynecology ==

== ENCOUNTER 2024-10-20 11:24 | Outpatient (AMB) | payer MEDICAID, SELFPAY ==
--- NOTE | 2024-10-19 09:12 | A.OFFVIS_ITS ---
Vital Signs 10/20/24 11:35 Height 5 ft 4 in Weight 150 lb BMI 25.7 Intake Visit Reasons: TV u/s results Allergies ENVIRONMENTAL Allergy (Intermediate, Uncoded 09/21/24 11:01) RUNNY NOSE, SNEEZING HPI Comments Details: The patient is presenting for follow-up to discuss the results of her abnormal uterine bleeding workup and options of treatment. The following workup was done.: H&H= 12.2/37.3 TSH, hCG, GC and chlamydia were negative. Pap smear was done was in 10/13 negative. Mammogram was BI-RADS 1 in 04/14 Pelvic ultrasound showed the following: Uterus measures 8.2 x 3.6 x 5.8 cm Normal myometrium. Endometrium 5 mm thickness. Small nabothian cyst. Right ovary 3.2 x 2.2 x 1.9 cm. Left ovary 4.1 x 2.1 x 1.9 cm. 19 mm left ovarian corpus luteum cyst. Otherwise unremarkable ovaries. Trace free pelvic fluid likely physiological. [facility] Medical History Fibroadenoma of left breast Gallstones Left breast mass Asthma Surgical History History of ankle surgery Family History Paternal Uncle Cancer of unknown origin Father Diabetes Mother Heart disease Social History Household Members: Children Housing: Apartment Alcohol intake: never Patient Tobacco Use Status: Never used Tobacco Current occupational status: unemployed Sexual orientation: Straight/Heterosexual Gender identity: Female Female Reproductive History Menstrual Age of Menarche: 13 Review of Systems Const All systems reviewed & are unremarkable except as noted in HPI and below Reports as per HPI and Reports no additional complaints GI Reports no additional complaints Reports no additional complaints Physical Exam Vital Signs: BMI result Body Mass Index 25.7 Telehealth Telehealth Telehealth Platform: Telephone Location of provider rendering services: practice address Location of patient: address on file Patient Identification confirmed using: Name, : Yes Telehealth method: video Patient verbally consented to treatment: Yes Patient verbally consented to billing insurance company: Yes Patient informed of any privacy concerns related to visit: Yes Assessment & Plan Assessment & Plan (1) Abnormal uterine bleeding (AUB): Code(s): N93.9 - Abnormal uterine and vaginal bleeding, unspecified Category: Medical Plan: Discussed with the patient the results of the work up done and options of treatment including expectant management, Lysteda, BCP's, Mirena IUD, endometrial ablation and hysterectomy. All pros, cons, risks and benefits if each option was discussed with the patient and the patient decided to think about it and get back to us. All questions answered the patient verbalized understanding. Coding Level of Care Code Est Pt Level 3 (78085) Diagnoses Abnormal uterine bleeding (AUB) N93.9
--- OUTSIDE RECORDS SUMMARY | 2024-10-19 09:43 | XMS_ITS | Clinical Summary ---
Author Organization [facility] ity Address [address] [place] [address] Care Team Providers Care Towel Cabinet Repairer Name Role Phone Anthony Torres MD Primary Care Provider [phone] Social History Tobacco Use Types Packs/Day Years [...] age to complete this topic Care Teams Towel Cabinet Repairer Relationship Specialty Start Date End Date Anthony Torres MD [address] [address] PCP - General 05/06/10
[2024-10-20 11:35] VITALS: BMI 25.7
--- OUTSIDE RECORDS SUMMARY | 2024-10-20 13:31 | XMS_ITS | Clinical Summary ---
Author Organization [facility] ity Address [address] [place] [address] Care Team Providers Care Load Test Mechanic Name Role Phone Anthony Torres MD Primary Care Provider [phone] Social History Tobacco Use Types Packs/Day Years [...] age to complete this topic Care Teams Load Test Mechanic Relationship Specialty Start Date End Date Anthony Torres MD [address] [address] PCP - General 05/06/10
== END 2024-10-20 11:45 | disposition home or self-care (01) ==
PROVIDERS: PCP Student in an Organized Health Care Education/Training Program; Visit Provider Obstetrics & Gynecology
DX: N93.9 Abnormal uterine and vaginal bleeding, unspecified (principal)
CPT/HCPCS: 99213

== ENCOUNTER → 2024-10-20 11:24 | Outpatient (BNVA) | payer MEDICAID, SELFPAY | PROVIDERS: PCP Student in an Organized Health Care Education/Training Program; Visit Provider Obstetrics & Gynecology | DX: N93.9 Abnormal uterine and vaginal bleeding, unspecified (principal) | CPT/HCPCS: 99212 ==

== ENCOUNTER 2025-03-06 17:48 | Outpatient (REF) | payer MEDICAID, SELFPAY ==
--- OUTSIDE RECORDS SUMMARY | 2025-03-06 15:30 | XMS_ITS | Encounter Summary ---
Author Organization [employer] Address [address] [place] [address] Care Team Providers Care Sheriff'S Detective Name Role Phone Yanet Alvarez MD Primary Care Provide r Encounter Details Date Type Department Care Team (Late st Contact Info) Description 03/06/2025 3:30 PM EDT Office Visit [facility] [address] [place], [place] [phone] Yanet Alvarez MD [address] [place], [place] [phone] Mild intermittent asthma without complication; Nausea; Healthcare maintenance; Allergic rhinitis, unspecified seasonality, unspecified trigger; Desire for Social History Tobacco Use Types Packs/Day Years [...] the past 12 months, has t he [employer], gas, oil or water company threatened to [...] AM EDT documented as of this encounter Last Filed Vital Signs Vital Sign Reading Time Taken Comments Blood Pressure 118/72 03/06/2025 3:49 PM EDT Pulse 97 03/06/2025 3:49 PM EDT Temperature 36.8 C (98.3 F) 03/06/2025 3:49 PM EDT Respiratory Rate 16 03/06/2025 3:49 PM EDT Oxygen Saturation 98% 03/06/2025 3:49 PM EDT Inhaled Oxygen Concentration - - Weight 66.6 kg (146 lb 12.8 oz) 03/06/2025 3:49 PM EDT Height 165.1 cm (5' 5 ) 03/06/2025 3:49 PM EDT Body Mass Index 24.43 03/06/2025 3:49 PM EDT documented in this encounter Progress Notes * Yanet Pinon MD - 03/06/2025 3:30 PM EDT SUBJECTIVE: Lakisha Aponte is a 30 y.o. year old female who presents for Follow up . Acute Concerns: Alteration of menstrual cycle, breast pain and nausea Patient is looking to get Social History Social History Narrative Not on file Problem List[1] Abdominal pain UTI symptoms Kidney stones Mild intermittent asthma without complication Healthcare maintenance Allergic rhinitis Encounter for screening for cervical cancer IUD check up Nexplanon insertion Viral upper respiratory tract infection Nausea Desire for Family History[2] Review of Systems Constitutional: Negative. HENT: Negative. Respiratory: Negative. Cardiovascular: Negative. Gastrointestinal: Positive for nausea. Negative for abdominal distention, abdominal pain, anal bleeding, blood in stool, constipation, diarrhea, rectal pain and vomiting. OBJECTIVE: Vitals: 03/06/25 1549 BP: 118/72 BP Location: Left arm Patient Position: Sitting BP Cuff Size: Adult Pulse: 97 Resp: 16 Temp: 98.3 ??F (36.8 ??C) TempSrc: Oral SpO2: 98% Weight: 146 lb 12.8 oz (66.6 kg) Height: 5' 5 (1.651 m) Physical Exam Constitutional: Appearance: Normal appearance. Cardiovascular: Rate and Rhythm: Normal rate and regular rhythm. Pulmonary: Effort: Pulmonary effort is normal. Breath sounds: Normal breath sounds. Abdominal: General: Abdomen is flat. Palpations: Abdomen is soft. Musculoskeletal: Right lower leg: No edema. Left lower leg: No edema. Neurological: Mental Status: She is alert. Follow Up: Follow up for 4-6 weeks lab review televisit . Medications Ordered Prior to Encounter[3] Problem List Items Addressed This Visit Mild intermittent asthma without complication Stable c/w same interventions Relevant Medications cetirizine (ZyrTEC) 10 MG tablet albuterol (ProAir HFA) 108 (90 Base) MCG/ACT inhaler fluticasone (Flonase) 50 MCG/ACT nasal spray multivitamin () 27-0.8 MG tablet Nausea Relevant Orders POCT Urine (Completed) Healthcare maintenance Relevant Orders CBC auto differential Comprehensive Metabolic Panel Hemoglobin A1c HIV-1/2 Antigen and Antibodies, Fourth Generation, with Reflexes Hepatitis C Antibody with Reflex to HCV, RNA, Quantitative, Real-Time PCR Lipid Panel, Standard Vitamin D, 25-Hydroxy, Total, Immunoassay TSH with Reflex to Free T4 RPR (Monitor) with Reflex to Titer Hepatitis B Core Antibody, Total Hepatitis B Surface Antibody, Qualitative Hepatitis B surface antigen, EIA Chlamydia/N. Gonorrhoeae, PCR, Urine Allergic rhinitis Relevant Medications cetirizine (ZyrTEC) 10 MG tablet albuterol (ProAir HFA) 108 (90 Base) MCG/ACT inhaler fluticasone (Flonase) 50 MCG/ACT nasal spray Desire for Counseling done vitamins prescribed today Relevant Medications multivitamin () 27-0.8 MG tablet [1] Patient Active Problem List Diagnosis Abdominal pain UTI symptoms Kidney stones Mild intermittent asthma without complication Healthcare maintenance Allergic rhinitis Encounter for screening for cervical cancer IUD check up Nexplanon insertion Viral upper respiratory tract infection Nausea Desire for [2] No family history on file. [3] Current Outpatient Medications on File Prior to Visit Medication Sig Dispense Refill cyclobenzaprine (Flexeril) 10 MG tablet Take 1 tablet (10 mg) by mouth at bedtime for 10 days. 10 tablet 0 ibuprofen 600 MG tablet Take 1 tablet 3 times daily with food for 1 week 21 tablet 0 loratadine-pseudoephedrine ER (Claritin-D 24 Hour) 10-240 MG 24 hr tablet Take 1 tablet by mouth Once per day. Do not crush, chew, or split. 30 tablet 11 [DISCONTINUED] albuterol (ProAir HFA) 108 (90 Base) MCG/ACT inhaler Inhale 2 puffs every 4 (four) hours. (Patient not taking: Reported on 07/31/2023) 18 g 2 [DISCONTINUED] cetirizine (ZyrTEC) 10 MG tablet TAKE 1 TABLET BY MOUTH ONCE DAILY IN THE MORNING 90tablet 1 [DISCONTINUED] fluticasone (Flonase) 50 MCG/ACT nasal spray INSTILL 1 SPRAY IN EACH NOSTRIL ONCE DAILY IN THE MORNING 48 g 0 No current facility-administered medications on file prior to visit. documented in this encounter Miscellaneous Notes * Assessment & Plan Note - Yanet Pinon MD - 03/06/2025 4:25 PM EDT Associated Problem(s): Mild intermittent asthma without complication Stable c/w same interventions * Assessment & Plan Note - Yanet Pinon MD - 03/06/2025 4:24 PM EDT Associated Problem(s): Desire for Counseling done vitamins prescribed today documented in this encounter Plan of Treatment Upcoming Encounters Date Type Department Care Team (Late st Contact Info) Description 05/30/2025 2:00 PM EST Office Visit [facility] [address] [place] [address] Millie Wilkerson, OD [address] [place] [address] Scheduled Orders Name Type Priority Associated Diagnoses Orde r Schedule CBC auto differential Lab Routine Healthcare maintenance Expected: 03/06/2025 (Approximate), Expires: 03/06/2026 Comprehensive Metabolic Panel Lab Routine Healthcare maintenance Expected: 03/06/2025 (Approximate), Expires: 03/06/2026 Hemoglobin A1c Lab Routine Healthcare maintenance Expected: 03/06/2025 (Approximate), Expires: 03/06/2026 HIV-1/2 Antigen and Antibodies, Fourth Generation, with Reflexes Lab Routine Healthcare maintenance Expected: 03/06/2025 (Approximate), Expires: 03/06/2026 Hepatitis C Antibody with Reflex to HCV, RNA, Quantitative, Real-Time PCR Lab Routine Healthcare maintenance Expected: 03/06/2025, Expires: 03/06/2026 Lipid Panel, Standard Lab Routine Healthcare maintenance Expected: 03/06/2025 (Approximate), Expires: 03/06/2026 Vitamin D, 25-Hydroxy, Total, Immunoassay Lab Routine Healthcare maintenance Expected: 03/06/2025 (Approximate), Expires: 03/06/2026 TSH with Reflex to Free T4 Lab Routine Healthcare maintenance Expected: 03/06/2025 (Approximate), Expires: 03/06/2026 RPR (Monitor) with Reflex to Titer Lab Routine Healthcare maintenance Expected: 03/06/2025, Expires: 03/06/2026 Hepatitis B Core Antibody, Total Lab Routine Healthcare maintenance Expected: 03/06/2025 (Approximate), Expires: 03/06/2026 Hepatitis B Surface Antibody, Qualitative Lab Routine Healthcare maintenance Expected: 03/06/2025 (Approximate), Expires: 03/06/2026 Hepatitis B surface antigen, EIA Lab Routine Healthcare maintenance Expected: 03/06/2025 (Approximate), Expires: 03/06/2026 documented as of this encounter Procedures Procedure Name Priority Date/Time Associated Diagnosis Comments POCT , URINE Routine 03/06/2025 4:14 PM EDT Nausea CHLAMYDIA/TRICHOMON /NEISSERIA GONORRHOEAE, PCR, URINE Routine 03/06/2025 4:04 PM EDT Healthcare maintenance documented in this encounter Results * POCT Urine (03/06/2025 4:14 PM EDT) Preg Test, Ur Negative Negative, Indeterminate, None Detected, Invalid, Specimen unsatisfactory for evaluation, Weakly Positive, 2+ QC Media Lot # [id number] Lot# Expiration Date [id number] Urine 03/06/2025 4:14 PM EDT Yanet Pinon MD POINT OF CARE TEST EN TER/EDIT ORDERABLES Final Result * Chlamydia/N. Gonorrhoeae, PCR, Urine (03/06/2025 4:04 PM EDT) Pathologist [facility] CT PCR, Urine NOT DETECTED Not Detect. [facility] Comment:A not detected test result does not exclude the possibilityof infection because test results can be affected byimproper specimen collection, concurrent antibiotic therapy,or the number of organisms in the specimen which may bebelow the sensitivity of the test. As with many diagnostictests, results from the Xpert CT/NG assay should beinterpreted in conjunction with other laboratory andclinical data available to the clinician.The Xpert CT/NG assay should not be used for the evaluationof suspected sexual abuse or for other medico-legalindications. Additional testing is recommended in anycircumstance when false positive or false negative resultscould lead to adverse medical, social or psychologicalconsequences. NG PCR, Urine NOT DETECTED Not Detect. [facility] Comment:A not detected test result does not exclude the possibilityof infection because test results can be affected byimproper specimen collection, concurrent antibiotic therapy,or the number of organisms in the specimen which may bebelow the sensitivity of the test. As with many diagnostictests, results from the Xpert CT/NG assay should beinterpreted in conjunction with other laboratory andclinical data available to the clinician.The Xpert CT/NG assay should not be used for the evaluationof suspected sexual abuse or for other medico-legalindications. Additional testing is recommended in anycircumstance when false positive or false negative resultscould lead to adverse medical, social or psychologicalconsequences. Urine (Urine, Random) 03/06/2025 4:04 PM EDT 03/06/2025 5:49 PM EDT us Yanet Pinon MD LAB URINE ORDERABLES Final Result Performing Organization Address City/State/[facility] Co de Phone Number [facility] [address] [place] [phone] documented in this encounter Visit Diagnoses Diagnosis Mild intermittent asthma without complication Nausea Nausea alone Healthcare maintenance Allergic rhinitis, unspecified seasonality, unspecified trigger Desire for documented in this encounter Additional Health Concerns Assessment Noted Time PHQ-9 Depression Total Score: 0 07/31/19 24 10:19 AM EST documented as of this encounter Care Teams Sheriff'S Detective Relationship Specialty Start Date End Date Yanet Alvarez MD [address] [place] [address] PCP - General Family Medicine 03/03/18 documented as of this encounter
[2025-03-06 20:38] LABS: CT PCR Urine NOT DETECTED (Not Detect.); NG PCR Urine NOT DETECTED (Not Detect.)
--- OUTSIDE RECORDS SUMMARY | 2025-03-06 21:47 | XMS_ITS | Clinical Summary ---
Author Organization [employer] Address [address] [place] [address] Care Team Providers Care Preparation Plant Supervisor Name Role Phone Yanet Alvarez MD Primary Care Provide r Allergies No known active allergies Medications cyclobenzaprin e (Flexeril) 10 MG tablet Take 1 tablet (10 mg) by mouth at bedtime for 10 days. 10 tablet 08/20/19 24 Active loratadine-pse udoephedrine ER (Claritin-D 24 Hour) 10-240 MG 24 hr tabletIndicati ons:Viral upper respiratory tract infection Take 1 tablet by mouth Once per day. Do not crush, chew, or split. 30 tablet 11 12/17/19 24 Active ibuprofen 600 MG tabletIndicati ons:Left anterior knee pain Take 1 tablet 3 times daily with food for 1 week 21 tablet 07/20/19 25 Active cetirizine (ZyrTEC) 10 MG tabletIndicati ons:Allergic rhinitis, unspecified seasonality, unspecified trigger Take 1 tablet (10 mg) by mouth in the morning. 90 tablet 1 03/06/20 25 Active albuterol (ProAir HFA) 108 (90 Base) MCG/ACT inhalerIndicat ions:Allergic rhinitis, unspecified seasonality, unspecified trigger Inhale 2 puffs every 4 (four) hours. 18 g 2 03/06/20 25 Active fluticasone (Flonase) 50 MCG/ACT nasal sprayIndicatio ns:Allergic rhinitis, unspecified seasonality, unspecified trigger Administer 1 spray into each nostril Once per day. Shake gently. Before first use, prime pump. After use, clean tip and replace cap. 48 g 1 03/06/20 25 Active multivitamin () 27-0.8 MG tabletIndicati ons:Desire for Take 1 tablet by mouth Once per day. 30 tablet 03/06/20 25 Active albuterol (ProAir HFA) 108 (90 Base) MCG/ACT inhaler Inhale 2 puffs every 4 (four) hours. 18 g 2 06/11/20 23 025 Discontinued(Re order (will not trigger notification to Pharmacy)) fluticasone (Flonase) 50 MCG/ACT nasal sprayIndicatio ns:Allergic rhinitis, unspecified seasonality, unspecified trigger INSTILL 1 SPRAY IN EACH NOSTRIL ONCE DAILY IN THE MORNING 48 g 10/22/19 24 025 Discontinued(Re order (will not trigger notification to Pharmacy)) cetirizine (ZyrTEC) 10 MG tabletIndicati ons:Allergic rhinitis, unspecified seasonality, unspecified trigger TAKE 1 TABLET BY MOUTH ONCE DAILY IN THE MORNING 90 tablet 1 10/22/19 24 025 Discontinued(Re order (will not trigger notification to Pharmacy)) Active Problems Problem Noted Date Diagnosed Date Nausea 03/06/2025 Desire for 03/06/2025 Assessment & Plan (03/06/2025 4:24 PM EDT): Counseling done vitamins prescribed today Viral upper respiratory tract infection 12/17/19 Assessment & Plan (12/17/2023 2:32 PM EDT): [...] intermittent asthma without complication Assessment & Plan (03/06/2025 4:25 PM EDT): Stable c/w same interventions Assessment & Plan (07/31/2023 10:52 AM EST): [...] Encounters Date Type Department Care Team Description 03/06/2025 3:30 PM EDT Office Visit [address] [address] Yanet Alvarez MD Mild intermittent asthma without complication; Nausea; Healthcare maintenance; Allergic rhinitis, unspecified seasonality, unspecified trigger; Desire for 03/06/2025 Travel 03/03/[address] [address] Yanet Alvarez MD chart prep 02/21/2025 Patient Outreach [address] [address] aYnet Alvarez MD Pre-visit Planning ((Unable to reach for PVP screening, LVM) to be completed in office ) from Last 3 Months Immunizations Immunization Administration Dates Next Due DTaP 10/16/1998, 5,1994,06/11,1994 [...] the past 12 months, has t he [employer], gas, oil or water company threatened to [...] Mass Index 24.43 03/06/2025 3:49 PM EDT Plan of Treatment Upcoming Encounters Date Type Department Care Team (Late st Contact Info) Description 05/30/2025 2:00 PM EST Office Visit [facility] [address] [place] [address] Alexjazlyn Millie, OD [address] [place] [address] Health Maintenance Due Date Last Done Comments Disability Screening 1994 Family Planning (PISQ) 2009 Pneumococcal Vaccine: Pediatrics (0 to 5 Years) and At-Risk Patients (6 to 49) Years (1 of 2 - PCV) 2013 HPV/Cotest 02/07/2024 SDOH Screening 07/20/2024 07/20/2023 Depression Screening 07/31/2024 07/31/2023, 07/31/19 24 COVID-19 Vaccine ( season) 2025 08/06/2021, 03/12/2021 Influenza Vaccine (#1) 2025 4, 05/29/2017, 06/28/2012, Additional history exists Alcohol/Substance Use Screening 07/20/2025 07/20/2024 Tobacco Screening 03/06/2026 03/06/2025 DTaP/Tdap/Td Vaccines (8 - Td or Tdap) [...] complete this topic HPV Vaccines Completed 06/28/2012, 0712/2010, 08/23/2009 HIV Screening Completed 07/20/2023 Hepatitis C [...] Routine 03/06/2025 4:04 PM EDT Healthcare maintenance IMAGE-GUIDED PAP W/AGE BASED SCR,W/CT/NG/TRICH Routine 09/25/2023 12:10 PM EDT Encounter for screening for cervical cancer HEPATITIS C AB W/REFL TO HCV RNA, QN, PCR Routine 07/20/2023 12:28 PM EST Healthcare maintenance HIV 1/2 ANTIGEN/ANTIBODY, FOURTH GENERATION W/RFL Routine 07/20/2023 12:28 PM EST Healthcare maintenance from Last 3 Months or Most Recently Relevant to Health Maintenance Results * POCT Urine (03/06/2025 4:14 PM EDT) Preg Test, Ur Negative Negative, Indeterminate, None Detected, Invalid, Specimen unsatisfactory for evaluation, Weakly Positive, 2+ QC Media Lot # [id number] Lot# Expiration Date [id number] Urine 03/06/2025 4:14 PM EDT Yanet Pinon MD POINT OF CARE TEST EN TER/EDIT ORDERABLES Final Result * Chlamydia/N. Gonorrhoeae, PCR, Urine (03/06/2025 4:04 PM EDT) CT PCR, Urine NOT DETECTED Not Detect. [facility] Comment:A not detected test [...] NG PCR, Urine NOT DETECTED Not Detect. [facility] Comment:A not detected test [...] Pinon MD LAB URINE ORDERABLES Final Result [facility] [address] [place] [phone] * Image-Guided Pap with Age-Based Screening??with CT/NG,??Trichomonas (09/25/2023 12:10 PM EDT) Trichomonas (NAAT) NOT DETECTED NOT DETECTED [facility] Comment:The analytical perfo rmance characteristics of thisassay have been determined by [employer]. Themodifications have not been cleared or approved bythe FDA. This assay has been validated pursuant to theIA regulations and is used for clinical purposes.For additional information, please refer [email or web address]/faq/Trichomonastma(This link is being provided for information/educational purposes only.)THIS TEST WAS PERFORMED AT:[email or web address] [place] [phone] SRIVASTAVA MD CTNG Ref Lab NOT DETECTED NOT DETECTED [facility] NG Ref Lab NOT DETECTED NOT DETECTED [facility] Pap Vial 09/25/2023 12:1 0 PM EDT 09/29/2023 1:07 PM EDT Narrative [facility] - 10/01/2023 12:04 AM EDT Collection Date: [id number] us Yanet Jackman Barciona Pinon MD LAB CYTOLOGY ORDERABL ES Final Result Performing Organization Address [facility]/ZIP Co de Phone Number [facility] [address] [place] [phone] * Hepatitis C Antibody with Reflex to HCV, RNA, Quantitative, Real-Time PCR (07/20/2023 12:28 PM EST) Hepatitis C Antibody Nonreactive Nonreactive [facility] Comment:Antibodies to HCV no t detected; does not exclude early acuteHCV infection. Blood Venous blood specimen / Unknown 07/20/2023 12:28 PM EST 07/20/2023 1:06 PM EST Result [facility] Yanet Pinon MD LAB BLOOD ORDERABLES Final Result Performing Organization Address [facility] Co de Phone Number [facility] [address] [place] [phone] * HIV-1/2 Antigen and Antibodies, Fourth Generation, with Reflexes (07/20/2023 12:28 PM EST) HIV AB/AG Nonreactive Nonreactive [facility] Comment:HIV-1 p24 Ag and/or HIV-1/HIV-2 Ab not detected.A test result that is nonreactive does not exclude thepossibility of exposure to or infection with HIV-1 and/orHIV-2. Nonreactive results in this assay for individualswith prior exposure to HIV-1 and/or HIV-2 may be due toantigen and antibody levels that are below the limit ofdetection of this assay.The [employer] HIV Ag/Ab Combo assay result andsupplemental assay results should be interpreted inconjunction with the patient's clinical presentation,history and other laboratory results. If the results areinconsistent with clinical evidence, additional testing issuggested to confirm the result. Blood Venous blood specimen / Unknown 07/20/2023 12:28 PM EST 07/20/2023 1:06 PM EST Yanet Pinon MD LAB BLOOD ORDERABLES Final Result [facility] [address] [place] [address] [phone] from Last 3 Months or Most Recently Relevant to Health Maintenance Insurance [facility] Care Teams Preparation Plant Supervisor Relationship Specialty Start Date End Date Yanet Alvarze MD [address] [place] [phone] PCP - General Family Medicine 03/03/18
--- OUTSIDE RECORDS SUMMARY | 2025-03-06 21:47 | XMS_ITS | Encounter Summary ---
Author Organization [facility] Address [address] [place] [address] Care Team Providers Care Grubber Name Role Phone Yanet Alvarez MD Primary Care Provide r Encounter Details Date Type Department Care Team (Latest Contact Info) Description 03/06/2025 Travel Social History Tobacco Use Types Packs/Day Years [...] as of this encounter Plan of Treatment Upcoming Encounters Date Type Department Care Team (Late st Contact Info) Description 05/30/2025 2:00 PM EST Office Visit [facility] OPTOMETRY [address] [place] [address] Millie Wilkerson, OD [address] [place], [place] [phone] documented as of this encounter Visit Diagnoses Not on filedocumented in this encounter Additional Health Concerns Assessment Noted Time PHQ-9 Depression Total Score: 0 07/31/19 24 10:19 AM EST documented as of this encounter Care Teams Grubber Relationship Specialty Start Date End Date Yanet Alvarez MD [address] [place] [address] PCP - General Family Medicine 03/03/18 documented as of this encounter
--- OUTSIDE RECORDS SUMMARY | 2025-03-06 21:47 | XMS_ITS | Encounter Summary ---
Author Organization [employer] Address [address] [place] [address] Care Team Providers Care Structural Steel Detailer Name Role Phone Yanet Alvarez MD Primary Care Provide r Reason for Visit * Reason Onset Date Comments chart prep 03/03/2025 Encounter Details Date Type Department Care Team (Late st Contact Info) Description 03/03/2025 Telephone [facility] MEDICINE [address] [place], [place] [phone] Yanet Alvarez MD [address] [place], [place] [phone] chart prep Social History Tobacco Use Types Packs/Day Years [...] t he electric, gas, oil or water [employer] threatened to shut off services in your [...] encounter Miscellaneous Notes * Telephone Encounter - Silvino Ambrose [place] - 03/03/2025 12:38 PM EDT Chart Prep Labs: done Images: done Referrals: complete Vaccines due: Covid, Flu, and PCV20 Screenings: not applicable Overdue care gaps: SDOH, PHQ-9, MARLIN-7, and Disability screen documented in this encounter Plan of Treatment Upcoming Encounters Date Type Department Care Team (Late st Contact Info) Description 05/30/2025 2:00 PM EST Office Visit [facility] OPTOMETRY [address] [place] [address] Millie Wilkerson, OD [address] [place] [address] documented as of this encounter Visit Diagnoses Not on filedocumented in this encounter Additional Health Concerns Assessment Noted Time PHQ-9 Depression Total Score: 0 07/31/19 24 10:19 AM EST documented as of this encounter Care Teams Structural Steel Detailer Relationship Specialty Start Date End Date Yanet Alvarez MD [address] [place] [address] PCP - General Family Medicine 03/03/18 documented as of this encounter
--- OUTSIDE RECORDS SUMMARY | 2025-03-06 21:47 | XMS_ITS | Clinical Summary ---
Author Organization [facility] ity Address [address] [place] [address] Care Team Providers Care Auto Overhauler Name Role Phone Anthony Torres MD Primary Care Provider [phone] Social History Tobacco Use Types Packs/Day Years [...] Cervical Cancer Screening: P ap Smear 2015 Depression Screening 06/22/2024 COVID-19 Vaccine ( - 2023-2 5 season) 2025 Influenza Vaccine (#1) 2025 05/29/2017 DTaP,Tdap,and Td Vaccines (2 - Td [...] 5 Years) and At-Risk Patients (6 to 49 Years) Aged Out No longer eligi ble based on patient's age to complete this topic RSV Immunization Patients Un missael 20 months Aged Out No longer eligible b ased on patient's age to complete this topic Varicella Vaccines Aged Out No longer eligible based on patient's age to complete this topic Care Teams Auto Overhauler Relationship Specialty Start Date End Date Anthony Torres MD [id number] [address] PCP - General 05/06/10
== END 2025-03-06 17:49 | disposition home or self-care (01) ==
LOC: HO.HHCLNP 17:48
PROVIDERS: Visit Provider Internal Medicine
DX: Z00.00 Encounter for general adult medical examination without abnormal findings (principal)
CPT/HCPCS: 87491; 87591

== ENCOUNTER 2025-03-13 11:57 | Outpatient (REF) | payer MEDICAID, SELFPAY ==
[2025-03-13 13:02] LABS: MANUAL DIFF FLAG NO
[2025-03-13 13:14] LABS: Hematocrit 35.7 % (37.0-47.0); Hemoglobin 12.1 g/dl (12.0-16.0); Imm Gran Abs Auto 0.03 X10*3/uL (0.00-0.03); Imm Gran Pct Auto 0.4 % (0.0-0.4); Lymphocytes Absolute Auto 1.5 X10*3/uL (1.2-4.9); Mean Corpuscular HGB Conc 33.9 g/dl (31.0-35.0); Mean Corpuscular Hemoglobin 31.2 pg (27.0-33.0); Mean Corpuscular Volume 92.0 fL (80.0-98.0); NRBC Abs Auto 0.000 X10*3/uL (0.0-0.012); NRBC Pct Auto 0.0 /100WBC (0.0-0.2); Platelet Count 317 X10*3/uL (160-400); Red Blood Count 3.88 X10*6/uL (4.20-5.50); White Blood Count 7.3 X10*3/uL (4.8-10.8)
[2025-03-13 13:28] LABS: Hemoglobin A1C 111.9343 umol/L; Total Hemoglobin (HGBA1C) 3139.0072 umol/L
--- OUTSIDE RECORDS SUMMARY | 2025-03-13 14:41 | XMS_ITS | Clinical Summary ---
Author Organization [email or web address] Address [address] [place] [address] Care Team Providers Care Meter Tester Name Role Phone Yanet Alvarez MD Primary [...] Description 03/06/2025 3:30 PM EDT Office Visit [address] [address] Yanet Alvarez MD Mild intermittent asthma without complication; Nausea; Healthcare maintenance; Allergic rhinitis, unspecified seasonality, unspecified trigger; Desire for 03/06/2025 Travel 03/03/[address] [address] Yanet Alvarez MD chart prep 02/21/2025 Patient Outreach [address] [address] Yanet Alvarez MD Pre-visit Planning ((Unable to reach [...] the past 12 months, has t he [employer], gas, oil or water company threatened to [...] Care Team (Late st Contact Info) Description 04/04/2025 1:45 PM EDT Telemedicine [facility] MEDICINE [address] [place] [address] Yanet Alvarez MD [address] [place] [address] 05/30/2025 2:00 PM EST Office Visit [facility] OPTOMETRY [address] [place], [place] [phone] Millie Wilkerson, OD [address] [place], [place] [phone] Health Maintenance Due Date Last Done Comments Disability Screening 1994 Family Planning (PISQ) 2009 Pneumococcal Vaccine: Pediatrics (0 to 5 Years) and At-Risk Patients (6 to 49) Years (1 of 2 - PCV) 2013 HPV/Cotest 02/07/2024 SDOH Screening 07/20/2024 07/20/2023 Depression Screening 07/31/2024 07/31/2023, 07/31/19 24 COVID-19 Vaccine ( season) 2025 08/06/2021, 03/12/2021 Influenza Vaccine (#1) 2025 , 05/29/2017, 06/28/2012, Additional history exists Alcohol/Substance Use [...] complete this topic HPV Vaccines Completed 06/28/2012, 070 12/2010, 08/23/2009 HIV Screening Completed 07/20/2023 Hepatitis [...] Procedure Name Priority Date/Time Associated Diagnosis Comments HEMOGLOBIN A1C Routine 03/13/2025 12:07 PM EDT Healthcare maintenance CBC WITH AUTO DIFFERENTIAL Routine 03/13/2025 12:07 PM EDT Healthcare maintenance POCT , URINE Routine 03/06/2025 4:14 PM EDT Nausea CHLAMYDIA/TRICHOMONAS /NEISSERIA GONORRHOEAE, PCR, URINE Routine 03/06/2025 4:04 [...] Recently Relevant to Health Maintenance Results * (ABNORMAL) CBC auto differential (03/13/2025 12:07 PM EDT) White Blood Count 7.3 4.8 - 10.8 X10*3/uL [facility] Red Blood Count 3.88(L) 4.20 - 5.50 X10*6/uL [facility] Hemoglobin 12.1 12.0 - 16.0 g/dl [facility] Hematocrit 35.7(L) 37.0 - 47.0 % [facility] Mean Corpuscular Volume 92.0 80.0 - 98.0 fL [facility] Mean Corpuscular Hemoglobin 31.2 27.0 - 33.0 pg [facility] Mean Corpuscular HGB Conc 33.9 31.0 - 35.0 g/dl [facility] Red Cell Distribution Width 13.5 11.0 - 16.0 % [facility] Platelet Count 317 160 - 400 X10*3/uL [facility] Mean Platelet Volume 9.9 9.4 - 12.3 fL [facility] Neutrophils Percent Auto 68.0 45 - 73 % [facility] Imm Gran Pct Auto 0.4 0.0 - 0.4 % [facility] Lymphocytes Percent Auto 20.5 20 - 40 % [facility] Monocytes Percent Auto 8.1 2 - 11 % [facility] Eosinophils Percent Auto 2.6 0 - 4 % [facility] Basophils Percent Auto 0.4 0 - 2 % [facility] NRBC Pct Auto 0.0 0.0 - 0.2 /100WBC [facility] Neutrophils Absolute Auto 4.9 2.0 - 8.3 x10*3/uL [facility] Imm Gran Abs Auto 0.03 0.00 - 0.03 X10*3/uL [facility] Lymphocytes Absolute Auto 1.5 1.2 - 4.9 X10*3/uL [facility] Monocytes Absolute Auto 0.6 0.1 - 1.2 X10*3/uL [facility] Eosinophils Absolute Auto 0.2 0.0 - 0.4 X10*3/uL [facility] Basophils Absolute Auto 0.0 0.0 - 0.2 X10*3/uL [facility] NRBC Abs Auto 0.000 0.0 - 0.012 X10*3/uL [facility] Blood Venous blood specimen / Unknown 03/13/2025 12:07 PM EDT 03/13/2025 12:57 PM EDT us Yanet Pinon MD LAB BLOOD ORDERABLES Final Result [facility] [address] [place] [phone] * Hemoglobin A1c (03/13/2025 12:07 PM EDT) Hemoglobin A1c 5.4 <6.0 % [facility] Comment:Hemoglobin A1C Refer ence Range Adults: 4.8 - 6.0 % Non diabetic: < 6.0 % Goal: < 7.0 %Additional Action Suggested: > 8.0 %Note: Hemoglobin A1c results are invalid for patients with abnormal amounts of HbF. Blood transfusions may impact the HbA1c concentration in the patient sample. Estimated Average Glucose 108 mg/dL [facility] Comment:eAG = Estimated ave rage glucose which is %A1C expressed asaverage glucose, using the formula of the [id number] Glucose study (ADAG), Diabetes Care, Vol.31,#8,Jan. 2007 Blood Venous blood specimen / Unknown 03/13/2025 12:07 PM EDT 03/13/2025 12:57 PM EDT Yanet Pinon MD LAB BLOOD ORDERABLES Final Result [facility] [address] [place] [phone] * POCT Urine (03/06/2025 4:14 PM EDT) Pathologist [facility] [place] Preg Test, Ur Negative Negative, Indeterminate, None Detected, Invalid, Specimen unsatisfactory for evaluation, Weakly Positive, 2+ QC Media Lot # [id number] Lot# Expiration Date [id number] Urine 03/06/2025 4:14 PM EDT Yanet Pinon MD POINT OF CARE TEST EN TER/EDIT ORDERABLES Final Result * Chlamydia/N. Gonorrhoeae, PCR, Urine (03/06/2025 4:04 PM EDT) Pathologist [facility] [place] CT PCR, Urine NOT DETECTED Not Detect. [facility] Comment:A not detected test result [...] NG PCR, Urine NOT DETECTED Not Detect. [facility] Comment:A not detected test result [...] 4:04 PM EDT 03/06/2025 5:49 PM EDT Yanet Pinon MD LAB URINE ORDERABLES Final Result [facility] [address] [place] [phone] * Image-Guided Pap with Age-Based Screening??with CT/NG,??Trichomonas (09/25/2023 12:10 PM EDT) Trichomonas (NAAT) NOT DETECTED NOT DETECTED [facility] Comment:The analytical perfo rmance characteristics of thisassay have been
--- OUTSIDE RECORDS SUMMARY | 2025-03-13 14:41 | XMS_ITS | Clinical Summary ---
Demographics Address [address] [place] [phone] Home Phone Mobile Phone Preferred Language es Marital Status Single Oriental Orthodox Affiliation Unknown
[2025-03-13 16:54] LABS: Alanine Aminotransferase 15 U/L (0-31); Albumin Level 4.4 g/dL (3.5-5.0); Alkaline Phosphatase 73 U/L (39-117); Anion Gap 9 (12-20); Aspartate Amino Transferase 26 U/L (5-31); Blood Urea Nitrogen 11 mg/dL (9-16); Calcium 8.8 mg/dL (8.4-10.2); Carbon Dioxide 27 mmol/L (22-29); Chloride 108 mmol/L (96-108); Cholesterol 148 mg/dL (<200); Estimated Glomerular Filt Rate > 60; HDL Cholesterol 52 mg/dL (>40); Potassium 4.3 mmol/L (3.3-5.1); Sodium 140 mmol/L (135-145); Total Protein 7.0 g/dL (6.5-8.0); Triglycerides 39 mg/dL (<150)
[2025-03-14 13:32] LABS: HBS Num1 0.00 mIU/mL (0-7.99); HBc Num1 0.03 S/CO (0.00-0.79); HBsAGNum1 0.68 S/CO (0.00-0.99); HIV Num 1 0.05 S/CO (0.00-0.99); Hepatitis B Surface Antigen Negative (Negative); ~HepC Num1 0.08 S/CO (0.00-0.79); ~Hepatitis B Surface Antibody NONREACTIVE (Nonreactive); ~Hepatitis C Antibody Nonreactive (Nonreactive)
== END 2025-03-13 11:58 | disposition home or self-care (01) ==
LOC: HO.HHCL 11:57
PROVIDERS: PCP Internal Medicine; Visit Provider Internal Medicine
DX: Z00.00 Encounter for general adult medical examination without abnormal findings (principal); Z11.3 Encounter for screening for infections with a predominantly sexual mode of transmission; Z11.4 Encounter for screening for human immunodeficiency virus [HIV]; Z11.59 Encounter for screening for other viral diseases
CPT/HCPCS: 36415; 80053; 80061; 82306; 83036; 84443; 85025; 86592; 86704; 86706; 86803; 87340; 87389

== ENCOUNTER 2025-03-23 12:36 | Outpatient (REF) | payer MEDICAID, SELFPAY ==
--- NOTE | ~2025-03-23 | US_ITS ---
CLINICAL HISTORY: N20.0 - Calculus of kidney US Renal Comparison: None provided Findings: Right kidney normal size and echotexture, 10.5 cm length. Left kidney normal size and echotexture, 11.4 cm length. Minimal collecting system dilatation of bilateralkidneys. Normal color Doppler. IMPRESSION: 1. Minimal bilateral hydronephrosis This document has been electronically signed by: Owen Bartholomew MD on 03/24/2025 09:47:09
--- OUTSIDE RECORDS SUMMARY | 2025-03-23 14:02 | XMS_ITS | Clinical Summary ---
Author Organization [employer] Address [address] [place] [address] Care Team Providers Care Electronic Operator Name Role Phone Yanet Alvarez MD [...] Description 03/06/2025 3:30 PM EDT Office Visit [address] [address] Yanet Alvarez MD Mild intermittent asthma without complication; Nausea; Healthcare maintenance; Allergic rhinitis, unspecified seasonality, unspecified trigger; Desire for 03/06/2025 Travel 03/03/[address] [address] Yanet Alvarez MD chart prep 02/21/2025 Patient Outreach [address] [address] Yanet Alvarez MD Pre-visit Planning ((Unable to [...] the past 12 months, has t he [place], gas, oil or water company threatened to [...] Info) Description 04/04/2025 1:45 PM EDT Telemedicine [facility] MEDIC[facility] [address] [place] [address] Yanet Alvarez MD [address] [place] [address] 05/30/2025 2:00 PM EST Office Visit [facility] OPTOMETRY [address] [place], [place] [phone] Millie Wilkerson, OD [address] [place], [place] [phone] Health Maintenance Due Date Last Done Comments [...] 06/28/2012, 070 12/2010, 08/23/2009 HIV Screening Completed 03/13/2025, 07/20/2023 Hepatitis C Screening Completed 03/13/2025, 024 Hepatitis A Vaccines Aged Out No long [...] Procedure Name Priority Date/Time Associated Diagnosis Comments HEPATITIS B SURFACE ANTIGEN, EIA Routine 03/13/2025 12:07 PM EDT Healthcare maintenance HEPATITIS B SURFACE ANTIBODY, QUALITATIVE Routine 03/13/2025 12:07 PM EDT Healthcare maintenance HEPATITIS B CORE AB TOTAL Routine 03/13/2025 12:07 PM EDT Healthcare maintenance RPR (MONITOR) W/REFL TITER Routine 03/13/2025 12:07 PM EDT Healthcare maintenance TSH W/REFLEX TO FT4 Routine 03/13/2025 1 2:07 PM EDT Healthcare maintenance VITAMIN D,25-OH,TOTAL,IA Routine 03/13/2025 12:07 PM EDT Healthcare maintenance LIPID PANEL, STANDARD Routine 03/13/2025 12:07 PM EDT Healthcare maintenance HEPATITIS C AB W/REFL TO HCV RNA, QN, PCR Routine 03/13/2025 12:07 PM EDT Healthcare maintenance HIV 1/2 ANTIGEN/ANTIBODY, FOURTH GENERATION W/RFL Routine 03/13/2025 12:07 PM EDT Healthcare maintenance HEMOGLOBIN A1C Routine 03/13/2025 12:07 PM EDT Healthcare maintenance COMPREHENSIVE METABOLIC PANEL Routine 03/13/2025 12:07 PM EDT Healthcare maintenance CBC WITH AUTO DIFFERENTIAL Routine 03/13/2025 12:07 PM EDT Healthcare maintenance POCT , URINE Routine 03/06/2025 4:14 PM EDT Nausea CHLAMYDIA/TRICHOMONAS/ NEISSERIA GONORRHOEAE, PCR, URINE Routine 03/06/2025 4:04 PM EDT Healthcare maintenance IMAGE-GUIDED PAP W/AGE BASED SCR,W/CT/NG/TRICH Routine 09/25/2023 12:10 PM EDT Encounter for screening for cervical cancer from Last 3 Months or Most Recently Relevant to Health Maintenance Results * Vitamin D, 25-Hydroxy, Total, Immunoassay (03/13/2025 12:07 PM EDT) Vitamin D 25-OH Total 34.7 >30 ng/mL [facility] Comment: Health Based Reference Values*< 20 ng/mL Osmjjzkav01-50 ng/mL Insufficient> 30 ng/mL Sufficient*Mandy COBB. N Engl J Med. 2007;357:266-280There is no well-established upper level of normal vitamin Dlevels. Some laboratories use 50 ng/mL as an upper limit ofnormal. However, toxicity is patient-dependent and may occurat any level. Careful correlation with the patient'spresentation is necessary and, if there is concern forvitamin D toxicity, treatment should be consideredirrespective of the serum level.Care must be taken in interpreting Vitamin D results fromdifferent laboratories and methodologies. Published datademonstrated that results from patients undergoinghemodialysis may show a negative bias when tested withvarious automated 25-OH vitamin D assays when compared toLC-MS/MS.When testing samples from patients whose predominant form ofVitamin D is Vitamin D2, such as patients receiving VitaminD2 supplementation, results that are subtherapeutic shouldbe confirmed with another method such as LC-MS/MS. Blood Venous blood specimen / Unknown 03/13/2025 12:07 PM EDT 03/13/2025 4:03 PM EDT us Yanet Pinon MD LAB BLOOD ORDERABLES Final Result [facility] [address], [place] [phone] * TSH with Reflex to Free T4 (03/13/2025 12:07 PM EDT) TSH reflex Free T4 0.85 0.32 - 4.0 uIU/mL [facility] Blood Venous blood specimen / Unknown 03/13/2025 12:07 PM EDT 03/13/2025 4:03 PM EDT us Yanet Pinon MD LAB BLOOD ORDERABLES Final Result [facility] [address] [place] [address] [phone] * (ABNORMAL) CBC auto differential (03/13/2025 12:07 PM EDT) White Blood Count 7.3 4.8 - 10.8 X10*3/uL [facility] Red Blood Count 3.88(L) 4.20 - 5.50 X10*6/uL [facility] Hemoglobin 12.1 12.0 - 16.0 g/dl [facility] Hematocrit 35.7(L) 37.0 - 47.0 % [facility] Mean Corpuscular Volume 92.0 80.0 - 98.0 fL [facility] Mean Corpuscular Hemoglobin 31.2 27.0 - 33.0 pg [facility] Mean Corpuscular HGB Conc 33.9 31.0 - 35.0 g/dl [facility] Red Cell Distribution Width 13.5 11.0 - 16.0 % [facility] Platelet Count 317 160 - 400 X10*3/uL [facility] Mean Platelet Volume 9.9 9.4 - 12.3 fL [facility] Neutrophils Percent Auto 68.0 45 - 73 % [facility] Imm Gran Pct Auto 0.4 0.0 - 0.4 % [facility] Lymphocytes Percent Auto 20.5 20 - 40 % [facility] Monocytes Percent Auto 8.1 2 - 11 % [facility] Eosinophils Percent Auto 2.6 0 - 4 % [facility] Basophils Percent Auto 0.4 0 - 2 % [facility] NRBC Pct Auto 0.0 0.0 - 0.2 /100WBC [facility] Neutrophils Absolute Auto 4.9 2.0 - 8.3 x10*3/uL [facility] Imm Gran Abs Auto 0.03 0.00 - 0.03 X10*3/uL [facility] Lymphocytes Absolute Auto 1.5 1.2 - 4.9 X10*3/uL [facility] Monocytes Absolute Auto 0.6 0.1 - 1.2 X10*3/uL [facility] Eosinophils Absolute Auto 0.2 0.0 - 0.4 X10*3/uL [facility] Basophils Absolute Auto 0.0 0.0 - 0.2 X10*3/uL [facility] NRBC Abs Auto 0.000 0.0 - 0.012 X10*3/uL [facility] Blood Venous blood specimen / Unknown 03/13/2025 12:07 PM EDT 03/13/2025 12:57 PM EDT us Yanet Pinon MD LAB BLOOD ORDERABLES Final Result Performing Organization Address [facility] Co de Phone Number [facility] [address] [place] [phone] * Hepatitis C Antibody with Reflex to HCV, RNA, Quantitative, Real-Time PCR (03/13/2025 12:07 PM EDT) [facility] Hepatitis C Antibody Nonreactive Nonreactive [facility] Comment:Antibodies to HCV no t detected; does not exclude early acuteHCV infection. Blood Venous blood specimen / Unknown 03/13/2025 12:07 PM EDT 03/13/2025 4:03 PM EDT us Yanet Pinon MD LAB BLOOD ORDERABLES Final Result Performing Organization Address [facility] Co de Phone Number [facility] [address] [place] [phone] * Hepatitis B surface antigen, EIA (03/13/2025 12:07 PM EDT) Pathologist [facility] Hepatitis B Surface Ag Negative Negative [facility] Blood Venous blood specimen / Unknown 03/13/2025 12:07 PM EDT 03/13/2025 4:03 PM EDT Yanet Pinon MD LAB BLOOD ORDERABLES Final Result Performing Organization Address [facility] Co de Phone Number [facility] [address] [place] [phone] * Hepatitis B Core Antibody, Total (03/13/2025 12:07 PM EDT) Hepatitis B Core Antibody Nonreactive Nonreactive [facility] Blood Venous blood specimen / Unknown 03/13/2025 12:07 PM EDT 03/13/2025 4:03 PM EDT us Yanet Pinon MD LAB BLOOD ORDERABLES Final Result Performing Organization Address [facility] Phone Number [facility] [address] [place] [phone] * RPR (Monitor) with Reflex to??Titer (03/13/2025 12:07 PM EDT) RPR (Monitor) w/Refl Titer NON-REACTI VE NON-REACT SUJEY [facility] Comment:THIS TEST WAS PERFOR MED AT:[employer] [place] [phone] SRIVASTAVA MD Rapid Plasma Reagin Ab Titer TNP [facility] Blood Venous blood specimen / Unknown 03/13/2025 12:07 PM EDT 03/13/2025 12:57 PM EDT us Yanet Pinon MD LAB BLOOD ORDERABLES Final Result Performing Organization Address [facility] Co de Phone Number [facility] [address] [place] [phone] * HIV-1/2 Antigen and Antibodies, Fourth Generation, with Reflexes (03/13/2025 12:07 PM EDT) [facility] HIV AB/AG Nonreactive Nonreactive [facility] Comment:HIV-1 p24 Ag and/or HIV-1/HIV-2 Ab not detected.A test result that is nonreactive does not exclude thepossibility of exposure to or infection with HIV-1 and/orHIV-2. Nonreactive results in this assay for individualswith prior exposure to HIV-1 and/or HIV-2 may be due toantigen and antibody levels that are below the limit ofdetection of this assay.The [employer] HIV Ag/Ab Combo assay result andsupplemental assay results should be interpreted inconjunction with the patient's clinical presentation,history and other laboratory results. If the results areinconsistent with clinical evidence, additional testing issuggested to confirm the result. Blood Venous blood specimen / Unknown 03/13/2025 12:07 PM EDT 03/13/2025 4:03 PM EDT us Yanet Pinon MD LAB BLOOD ORDERABLES Final Result Performing Organization Address City/[facility]/ZIP Co de Phone Number [facility] [address] [place] [phone] * Hepatitis B Surface Antibody, Qualitative (03/13/2025 12:07 PM EDT) [facility] ~Hepatitis B Surface Antibody NONREACTIVE Nonreactive [facility] Comment:Nonreactive: < 8.00 mIU/mL Blood Venous blood specimen / Unknown 03/13/2025 12:07 PM EDT 03/13/2025 4:03 PM EDT us Yanet Pinon MD LAB BLOOD ORDERABLES Final Result Performing Organization Address City/[facility]/ZIP Co de Phone Number [facility] [address] [place] [phone] * Hemoglobin A1c (03/13/2025 12:07 PM EDT) [facility] Hemoglobin A1c 5.4 <6.0 % [facility] Comment:Hemoglobin A1C Refer ence Range Adults: 4.8 - 6.0 % Non diabetic: < 6.0 % Goal: < 7.0 %Additional Action Suggested: > 8.0 %Note: Hemoglobin A1c results are invalid for patients with abnormal amounts of HbF. Blood transfusions may impact the HbA1c concentration in the patient sample. Estimated Average Glucose 108 mg/dL [facility] Comment:eAG = Estimated ave rage glucose which is %A1C expressed asaverage glucose, using the formula of the Y2G-NkbxaozYqgbvuf Glucose study (ADAG), Diabetes Care, Vol.31,#8,Jan. 2007 Blood Venous blood specimen / Unknown 03/13/2025 12:07 PM EDT 03/13/2025 12:57 PM EDT us Yanet Pinon MD LAB BLOOD ORDERABLES Final Result [facility] [address] [place] [phone] * Lipid Panel, Standard (03/13/2025 12:07 PM EDT) Triglycerides 39 <150 mg/dL [facility] Comment:Desirable Triglyceri de: less than 150 mg/dLBorderline High Triglyceride 150-199 mg/dLHigh Triglyceride: 200-499 mg/dLVery High Triglyceride: greater than or equal to 5OO mg/dL Cholesterol 148 <200 mg/dL [facility] Comment:Desirable Cholestero l: less than 200 mg/dLBorderline High Cholesterol: 200-239 mg/dLHigh Cholesterol: greater than 239 mg/dL LDL Cholesterol Calculated 89 <100 mg/dL [facility] Comment:Desirable LDL: less than 100 mg/dLNear Optimal/Above Optimal LDL: 110- 129 mg/dLBorderline High LDL: 130-159 mg/dLHigh LDL: 160-189 mg/dLVery High LDL: greater than or equal to 190 mg/dL HDL Cholesterol 52 >40 mg/dL [facility] Comment:Desirable HDL: great er than 40 mg/dL Note: This HDL assay may give artificially low results in patients with liver disease. Blood Venous blood specimen / Unknown 03/13/2025 12:07 PM EDT 03/13/2025 4:03 PM EDT us Yanet Pinon MD LAB BLOOD ORDERABLES Final Result [facility] [address] [place] [phone] * (ABNORMAL) Comprehensive Metabolic Panel (03/13/2025 12:07 PM EDT) Sodium 140 135 - 145 mmol/L [facility] Potassium 4.3 3.3 - 5.1 mmol/L [facility] Chloride 108 96 - 108 mmol/L [facility] Carbon Dioxide 27 22 - 29 mmol/L [facility] Anion Gap 9(L) 12 - 20 [facility] Urea Nitrogen (BUN) 11 9 - 16 mg/dL [facility] Creatinine, Serum 0.73 0.5 - 1.4 mg/dL [facility] Estimated Glomerular Filt Rate >60 [facility] Comment:Chronic Kidney Disea se: Estimated GFR < 60 mL/min/1.84i6Xecgyu Kidney Disease: Estimated GFR < 15 mL/min/1.73m2 Glucose 83 60 - 115 mg/dL [facility] Calcium 8.8 8.4 - 10.2 mg/dL [facility] Bilirubin, Total 0.3 0.0 - 1.0 mg/dL [facility] Aspartate Amino Transferase 26 5 - 31 U/L [facility] Alanine Aminotransferase 15 0 - 31 U/L [facility] Total Protein 7.0 6.5 - 8.0 g/dL [facility] Albumin Level 4.4 3.5 - 5.0 g/dL [facility] Alkaline Phosphatase 73 39 - 117 U/L [facility] Blood Venous blood specimen / Unknown 03/13/2025 12:07 PM EDT 03/13/2025 4:03 PM EDT Yanet Pinon MD LAB BLOOD ORDERABLES Final Result [facility] [address] [place] [phone] [phone] * POCT Urine (03/06/2025 4:14 PM EDT) Preg Test, Ur Negative Negative, Indeterminate, None Detected, Invalid, Specimen unsatisfactory for evaluation, Weakly Positive, 2+ QC Media Lot # [id number] Lot# Expiration Date [id number] Urine 03/06/2025 4:14 PM EDT Yanet Pinon MD POINT OF CARE TEST EN TER/EDIT ORDERABLES Final Result * Chlamydia/N. Gonorrhoeae, PCR, Urine (03/06/2025 4:04 PM EDT) Pathologist [facility] CT PCR, Urine NOT DETECTED Not Detect. [facility] Comment:A not detected test result [...] NG PCR, Urine NOT DETECTED Not Detect. [facility] Comment:A not detected test result [...] URINE ORDERABLES Final Result Performing Organization Address [facility] Co de Phone Number [facility] [address] [place] [phone] * Image-Guided Pap with Age-Based Screening??with CT/NG,??Trichomonas (09/25/2023 12:10 PM EDT) Trichomonas (NAAT) NOT DETECTED NOT DETECTED [facility] Comment:The analytical perfo rmance characteristics of thisassay have been determined by [employer]. Themodifications have not been cleared or approved bythe FDA. This assay has been validated pursuant to theIA regulations and is used for clinical purposes.For additional information, please refer tohttp://education.[employer]branch/faq/Trichomonastma(This link is being provided for information/educational purposes only.)THIS TEST WAS PERFORMED AT:[employer] [address] [phone] SRIVASTAVA MD CTNG Ref Lab NOT DETECTED NOT DETECTED [facility] NG Ref Lab NOT DETECTED NOT DETECTED [facility] Pap Vial 09/25/2023 12:1 0 PM EDT 09/29/2023 1:07 PM EDT Narrative [facility] - 10/01/2023 12:04 AM EDT Collection Date: [id number] us Yanet Pinon MD LAB CYTOLOGY ORDERABL ES Final Result Performing Organization Address [facility]/ZIP Co de Phone Number [facility] [address] [place] [phone] from Last 3 Months or Most Recently Relevant to Health Maintenance Insurance [employer] STANDARD Care Teams Electronic Operator Relationship Specialty Start Date End Date Yanet Alvarez MD [address] [place] [phone] PCP - General Family Medicine 03/03/18
--- OUTSIDE RECORDS SUMMARY | 2025-03-23 14:03 | XMS_ITS | Clinical Summary ---
Author Organization [facility] Address [address] [place] [address] Care Team Providers Care Trim Setter Name Role Phone Anthony Torres MD Primary Care Provider [phone] Social History Tobacco Use Types Packs/Day Years [...] Cervical Cancer Screening: P ap Smear 2015 HPV Vaccines (1 - 3-dose SCD M series) 2021 Depression Screening 06/22/2024 COVID-19 Vaccine ( - 2023-2 5 season) 2025 Influenza Vaccine (#1) 2025 05/29/2017 DTaP,Tdap,and Td Vaccines (2 - Td or Tdap) 08/22/2027 08/21/2017 RSV Immunization Adult Patie nts (1 - 1-dose 75+ series) 2069 HIB Vaccines Aged Out No longer eligi [...] age to complete this topic Care Teams Trim Setter Relationship Specialty Start Date End Date Antohny Torres MD [phone] [phone] PCP - General 05/06/10
== END 2025-03-23 12:37 | disposition home or self-care (01) ==
LOC: HO.US 12:36
PROVIDERS: PCP Student in an Organized Health Care Education/Training Program; Visit Provider Nurse Practitioner Family
DX: N20.0 Calculus of kidney (principal)
CPT/HCPCS: 76775

== ENCOUNTER → 2025-03-23 12:37 | Outpatient (BNV) | payer MEDICAID, SELFPAY | PROVIDERS: PCP Student in an Organized Health Care Education/Training Program; Visit Provider Specialist | DX: N20.0 Calculus of kidney (principal) | CPT/HCPCS: 76775 ==